=== PATIENT | female | born 1955 | race Caucasian/White ===

== ENCOUNTER 2017-12-11 09:39 | Outpatient (REF) | payer MEDICARE, MEDICAID, SELFPAY ==
[2017-12-11 13:00] LABS: HCT 35.4 % (36.0-46.0); HGB 12.5 g/dL (12.0-15.5); Mean Corp. HGB Concentration 35.3 g/dL (32.0-36.0); Mean Platelet Volume 9.4 fL (8.0-11.0); Platelet Count 131 x1000/uL (130-400); RBC 3.47 m/cumm (4.00-5.20); RBC Distribution Width 12.8 % (11.7-14.6); White Blood Cell Count 6.22 k/cumm (4.4-10.8)
[2017-12-11 13:19] LABS: ALT 95 U/L (12-78); AST 115 U/L (15-37); Albumin 3.9 g/dL (3.4-5.0); Alkaline Phosphatase 119 U/L (46-116); Anion Gap 11.7 mmol/L (3-11); BUN 5 mg/dL (7-18); Bilirubin, Total 0.4 mg/dL (0.2-1.0); CO2 25.3 mmol/L (21.0-32.0); CREATININE 0.67 mg/dL (0.55-1.02); Calcium 9.1 mg/dL (8.5-10.1); Chloride 99 mmol/L (98-107); Glucose 123 mg/dL (70-100); Sodium 136 mmol/L (136-145); TSH (W/Ref FT4) 1.96 uIU/mL (0.358-3.74); Total Protein 7.8 g/dL (6.4-8.2)
[2017-12-12 09:30] LABS: IgA 489 mg/dL (85-499); IgG 1228 mg/dL (610-1616); IgM 72 mg/dL (35-242)
== END 2017-12-11 09:59 ==
LOC: NCHCN 09:39
PROVIDERS: PCP Internal Medicine; Visit Provider Internal Medicine
DX: R63.0 Anorexia (principal); R53.83 Other fatigue; K70.0 Alcoholic fatty liver; R00.0 Tachycardia, unspecified; F34.1 Dysthymic disorder; M18.0 Bilateral primary osteoarthritis of first carpometacarpal joints
CPT/HCPCS: 80053; 82784; 85027; 84443

== ENCOUNTER 2018-09-16 20:24 | Inpatient (IN) | payer MEDICARE, MEDICAID, SELFPAY ==
[2018-09-16] VITALS (24 sets, daily range): BP systolic 106–134; BP diastolic 77–92; PULSE 88–107; RESP 20; TEMP 36.8; O2SAT 95–99
--- NOTE | 2018-09-16 20:37 | W.ED.GENAD ---
Discharge Plan Disposition Patient Disposition: [facility] INPATIENT Condition: Fair Discharge Details Chief Complaint: Orthopedic Clinical Impression: Closed fracture of left hip, Incidental pulmonary nodule Admit Date/Time: 09/16/18 22:23 Admit Provider: Pietro Perkins Attending Provider: Pietro Perkins Primary Care Provider: Abhijeet Castillo ED Provider: Effie Armenta Medical Decision Making Patient is a 63-year-old female presents today with chief complaint of left hip pain. She is brought in via EMS. She reports that prior to arrival she slipped on wet stairs that lead out from her house and fell landing on her left hip. Denies other injury the time of the incident. Did not strike her head, no loss of consciousness. Denies any visual change. No neck or back pain. Denies any chest, abdomen pain. On exam, patient is very point tender over the left hip. She was given 50 mcg of fentanyl prior to arrival which did work well for the patient although short-lived. We will augment this with another 50 mcg of fentanyl, undressed the patient and sent for x-rays. Patient is not anticoagulated. History significant for anxiety, COPD, depression, GERD, hypothyroidism, TIA. XR reviewed by myself, concerning for impacted fracture of hte left femoral neck. Neck appears shortened compared to xray from 2010. CXR ordered, labs and EKG ordered as well. Consulted with Dr. Henderson who advised that someone will address fx tomorrow. Spoke with Dr. Perkins who agrees to admission for left hip fracture. X-rays reviewed by radiologist: IMPRESSION: Indeterminate age left femoral neck fracture. Could be an acute impacted subcapital fracture. Correlate with history and perform additional imaging if indicated. FINDINGS: Lungs: Right lower lobe circumscribed pulmonary nodule measures 16 mm as compared to 12 mm on the prior study. Pleural space: Unremarkable. No evidence of pneumothorax. Heart/Mediastinum: Unremarkable. Heart size within normal limits for technique. Bones/joints: Unremarkable. IMPRESSION: Slowly enlarging right lower lobe pulmonary nodule. No acute findings. Discussed these findings with the patient. She is an active smoker, smokes approximately 1PPD. Advised close f/u with PCP. EKG reviewed by Dr. Bonilla. NSR rate 98, no acute ischemic changes noted. HPI General Mode of arrival: EMS. Date/Time Provider Initiated Documentation: 09/16/18 20:37. Limitations to Documentation: no limitations. Information obtained by: patient, family (accompanied by son), EMS and RN notes reviewed. History of Present Illness 63 year old F presents to the emergency department with the chief complaint of left hip pain after fall, described as moderate, Quality is described as aching, and is localized to the left and lower extremity. Patient reports no radiation. Patient started experiencing this minute(s) and it has been constant. Immobilization improves symptom(s), Movement worsens symptoms . Patient notes no other symptoms.; denies confusion, chest pain, fever/chills, headaches, nausea/vomiting, rash, shortness of breath and weakness. Patient did receive the following treatments prior to arrival, other (given fentanyl by EMS) Related Data Home Medications Medication Instructions Recorded Confirmed albuterol sulfate 2 puff PRN PRN 10/08/14 09/16/18 aspirin [Aspir-Low] 1 tab DAILY 10/08/14 09/16/18 naproxen 1 tab PO BID 10/08/14 09/16/18 salmeterol [Serevent Diskus] 1 puff BID 10/08/14 09/16/18 tiotropium bromide [Spiriva] 1 puff DAILY 10/08/14 09/16/18 levothyroxine 25 mcg PO DAILY 07/21/15 09/16/18 dexlansoprazole [Dexilant] 30 mg PO DAILY 10/21/16 09/16/18 Allergies Allergy/AdvReac Type Severity Reaction Status Date / Time Penicillins Allergy Unverified 09/16/18 20:35 General Stated Complaint: Orthopedic TARA: 3 Review of Systems Constitutional Reports as per HPI, Denies chills, Denies fatigue, Denies fever(s), Denies headache(s) and Denies weakness Eyes Reports as per HPI, Denies blurry vision, Denies change in vision and Denies loss of vision ENT Denies abnormal hearing and Denies headache(s) Cardiovascular Reports as per HPI, Denies chest pain and Denies dyspnea Respiratory Reports as per HPI, Denies cough, Denies pain on inspiration, Denies pain with cough and Denies dyspnea Gastrointestinal Reports as per HPI, Denies abdominal pain, Denies nausea and Denies vomiting Genitourinary Reports as per HPI and Denies urinary incontinence Musculoskeletal Reports as per HPI Integumentary/Breasts Reports as per HPI and Denies rash Neurologic Reports as per HPI, Denies abnormal hearing, Denies abnormal movements, Denies abnormal speech, Denies headache(s), Denies lack of coordination, Denies focal weakness, Denies loss of vision, Denies seizure-like activity, Denies paresthesias and Denies weakness Endocrine Denies fatigue [facility] Surgical History Colonoscopy - MAC (10/23/16) Family History Mother No problems noted. Other Colon cancer Social History Smoking/Tobacco Use Status: Current every day Alcohol Intake: current Alcohol Intake frequency: 0-2 drinks per day Alcohol type: beer Drug use: Never Substance use type: does not use Do you feel safe at home: Yes Do you feel safe in your relationship?: Yes Exam Const General: cooperative, healthy appearing, comfortable, no acute distress, well developed and well groomed Nutritional Appearance: average body habitus and well nourished Orientation: alert, awake and oriented x3 HENMT Head: normal to inspection, no palpable skull fracture, normocephalic and atraumatic Ears: hearing grossly normal bilaterally, external ears normal and TM's normal bilaterally General nose exam: external nose normal Mouth: oral mucosae normal, lip normal and tongue normal Throat: posterior oropharynx normal Eyes General: appearance normal, both eyes and all related structures Visual Smalls: normal visual smalls by confrontation Alignment and Position: alignment normal Periorbital: periorbital findings normal Eyelids: eyelids normal Conjunctivae: conjunctivae normal Pupils: PERRL EOM: EOM intact bilaterally Neck Neck: normal visual inspection, full ROM, no lymphadenopathy, no meningeal signs, trachea midline and supple Chest Chest: normal inspection of the chest, normal palpation of entire chest wall, no crepitus and no localized rib tenderness Resp Effort & Inspection: normal respiratory effort, able to speak in complete sentences and no respiratory distress Auscultation: clear to auscultation bilaterally, no rales, no rhonchi and no wheezes Cardio Rate: regular rate Rhythm: regular rhythm Heart Sounds: S1 normal and S2 normal GI Inspection: normal to inspection, no abdominal wall ecchymosis, no edema and non-distended Palpation: soft, no hepatosplenomegaly, not firm, no guarding, no pulsatile masses, not rigid and nontender Auscultation: normal bowel sounds Back/Spine/Pelvis Back: no CVA tenderness Cervical Spine: normal cervical lordosis and cervical ROM normal Thoracic/Lumbar Spine: thoracic and lumbar spine normal to inspection, thoraco-lumbar ROM normal, No thoraco-lumbar ROM limited, No thoraco-lumbar spasm and No thoracic spinal tenderness Pelvis: no pain with anterior-posterior compression and no pain with lateral compression Skin General skin exam: no rashes or lesions noted Lesions: no lesions Rashes: no rashes Trauma: no lacerations or abrasions Wounds: no wounds Neuro General: alert, awake, oriented x3, gait normal, tone normal and moves all extremities Cranial Nerves: CN's II-XI intact bilaterally Cognition: normal cognition Speech: speech normal Gait: gait abnormal (patient unable to bear weight since fall) Motor: muscle tone normal throughout Sensory Exam: no sensory deficits noted (no saddle paresthesias) Extrem General: no pedal edema and no calf tenderness Left lower extremity: normal capillary refill, no joint enlargement, hip/thigh Details: tenderness Location: of the hip Location: laterally and abnormal ROM Details: held in an abnormal fashion Details: in flexion; no swelling, ROM abnormal, no ecchymosis, no crepitus and no deformity, knee Details: normal to inspection, lower leg Details: normal to inspection, ankle Details: normal to inspection and foot Details: vascular exam Details: dorsalis pedis pulse present and posterior tibial pulse present; abnormal ROM (unable to range hip) Psych Appearance: grossly normal and well kempt Mental Status: mental status grossly normal Speech and Movement: speech and movement normal Course Vital Signs Temperature 36.8 C 09/16/18 20:31 Pulse 90 09/16/18 20:31 Respiratory Rate 09/16/18 20:31 Blood Pressure 112/83 09/16/18 20:31 Pulse Oximetry 99 09/16/18 20:31 Temperature 36.8 C 09/16/18 20:31 Temperature Source Skin 09/16/18 20:31 Pulse 90 09/16/18 20:31 Respiratory Rate 20 09/16/18 20:31 Blood Pressure 112/83 09/16/18 20:31 Blood Pressure Position Sitting 09/16/18 20:31 Pulse Oximetry 99 09/16/18 20:31 Oxygen Delivery Method Room Air 09/16/18 20:31 Oxygen Flow Rate 0 09/16/18 20:31
[2018-09-16] MEDS: fentaNYL 100 MCG/2 ML VIAL 50 MCG IVP (21:30)
--- NOTE | 2018-09-16 21:52 | DI.RAD_ITS ---
SYMPTOM/DIAGNOSIS: FALL. LEFT HIP AND PELVIS: There is a deformity of the subcapital region of the femur which is age indeterminate. Correlation with the patient's history and if appropriate further evaluation with CT could be obtained to further assess the acuity of this abnormality.
--- NOTE | 2018-09-16 22:00 | DI.RAD_ITS ---
SYMPTOM/DIAGNOSIS: HIP FX PA AND LATERAL CHEST: When compared with previous images there is a slight interval increase in the size of a right lower lobe pulmonary nodule which today measures approximately 16 mm as compared with 12 mm on a prior study of 10/08/2014. There is no infiltrate. No pleural effusion or pneumothorax. The heart is within normal limits in size. No acute bony abnormality is seen. SUMMARY: A slowly enlarging right lower lobe, pulmonary nodule is demonstrated. No acute findings are identified.
--- NOTE | 2018-09-16 22:36 | DI.VRAD_ITS ---
EXAM: XR Left Hip with Pelvis when Performed EXAM DATE/TIME: 09/16/2018 9:03 PM CLINICAL HISTORY: 63 years old, female; Injury or trauma; Fall; Initial encounter; Blunt trauma (contusions or hematomas); Left; Hip; Injury date: 09/16/2018 TECHNIQUE: Imaging protocol: XR Left hip with pelvis when performed. Views: 2 or 3 views. COMPARISON: No relevant prior studies available. FINDINGS: Bones/joints: Fracture deformity of the subcapital portion of the left femoral neck is of uncertain acuity. This area is not well visualized on the images provided. Soft tissues: Unremarkable. IMPRESSION: Indeterminate age left femoral neck fracture. Could be an acute impacted subcapital fracture. Correlate with history and perform additional imaging if indicated. Dictated and Authenticated by: Abhijeet Marlow MD. Ordering:PAULINA Chou MD
--- NOTE | 2018-09-16 22:38 | DI.VRAD_ITS ---
EXAM: XR Chest, 1 View EXAM DATE/TIME: 09/16/2018 9:57 PM CLINICAL HISTORY: 63 years old, female; Injury or trauma; Fall; Initial encounter; Blunt trauma (contusions or hematomas); Injury date: 09/16/2018; Injury details: Lt hip FX TECHNIQUE: Imaging protocol: XR of the chest, 1 view. COMPARISON: CR ABD FLAT UPRIGHT PA CHEST 10/08/2014 4:28 PM FINDINGS: Lungs: Right lower lobe circumscribed pulmonary nodule measures 16 mm as compared to 12 mm on the prior study. Pleural space: Unremarkable. No evidence of pneumothorax. Heart/Mediastinum: Unremarkable. Heart size within normal limits for technique. Bones/joints: Unremarkable. IMPRESSION: Slowly enlarging right lower lobe pulmonary nodule. No acute findings. Dictated and Authenticated by: Abhijeet Marlow MD. Ordering:PAULINA Chou MD
[2018-09-16 23:14] LABS: Abs Immature Grans 0.04 k/cumm (0.0-0.09); Absolute Basophil Count 0.03 k/cumm (0.0-0.2); Absolute Eosinophil Count 0.02 k/cumm (0.0-0.7); Absolute Lymphocyte Count 1.82 k/cumm (1.2-3.4); Absolute Monocyte Count 0.37 k/cumm (0.11-0.7); Absolute Neutrophil Count 4.45 k/cumm (1.2-6.7); Basophils % 0.4; Eosinophils % 0.3; HCT 34.5 % (36.0-46.0); Immature Grans % 0.6; Mean Corp. HGB Concentration 34.8 g/dL (32.0-36.0); Mean Corpuscular Hemoglobin 35.2 pg (27.0-33.0); Mean Corpuscular Volume 101.2 fL (80-95); Mean Platelet Volume 8.2 fL (8.0-11.0); Monocytes % 5.5; Neutrophils % 66.2; Platelet Count 114 x1000/uL (130-400); RBC 3.41 m/cumm (4.00-5.20); White Blood Cell Count 6.73 k/cumm (4.4-10.8)
[2018-09-16] MEDS: HYDROmorphone 2 MG/ML VIAL 1 MG IVP (23:25)
[2018-09-16 23:33] LABS: ALT 64 U/L (12-78); AST 74 U/L (15-37); Albumin 3.3 g/dL (3.4-5.0); Alkaline Phosphatase 100 U/L (46-116); Anion Gap 11.3 mmol/L (3-11); BUN 8 mg/dL (7-18); Bilirubin, Total 0.3 mg/dL (0.2-1.0); CO2 21.7 mmol/L (21.0-32.0); CREATININE 0.64 mg/dL (0.55-1.02); Chloride 105 mmol/L (98-107); Glucose 123 mg/dL (70-100); Potassium 3.9 mmol/L (3.5-5.1); Sodium 138 mmol/L (136-145); Total Protein 6.8 g/dL (6.4-8.2)
--- NOTE | 2018-09-16 23:52 | W.PM.HP.N ---
Date of service: 09/16/18 Time of Service: 23:53 Assessment and Plan (1) Fracture of femoral neck, left, closed: Current visit: Yes Status: Acute keep NPO, give parenteral narcotic analgesics, keep immobile, orthopedics to perform ORIF tomorrow. Qualifiers: Encounter type: initial encounter Qualified Code(s): S72.002A - Fracture of unspecified part of neck of left femur, initial encounter for closed fracture (2) COPD (chronic obstructive pulmonary disease): Current visit: No Status: Chronic not in any acute exacerbation. she is stable on her home meds of Spiriva and Serevent. can use prn albuterol as needed for acute bronchospasms but clinically ok to go to surgery. I have ordered IS for her. (3) Hypothyroidism (acquired): Current visit: No Status: Chronic patient reports that she has not taken her synthroid in several months and her last TSH was ok. I will repeat this in the a.m. but hold on her levothyroxine for now (4) Right lower lobe pulmonary nodule: Current visit: No Status: Chronic can be followed up as an outpatient w/ CT/PET. Patient seemed to unaware of this lung nodule even though it has been worked up as far back as September 2014. Back then it was read as a 11 mm granuloma, whereas the current CXR suggests that it has increased in size to 16 mm. I explained this to the patient and she understands the need for follow up w/ Dr. Castillo. History of Present Illness Chief Complaint: left hip pain Narrative: 63-year-old female with a past medical history of osteoarthritis, COPD, hypothyroidism, GERD presents emergency department after mechanical fall landing on her left side with immediate left-sided hip pain and inability to ambulate. Evaluation the ER review revealed an impacted left femoral neck fracture. Patient is now admitted for surgical repair of the same. Dr. Soares, orthopedic surgeon medication care manager, was notified by the ER personnel. Patient denies any syncope, palpitations, chest pain or pressure. She had a mechanical fall on a wet doorstep landing on her left side. She has had no antecedent episodes of chest pain/pressure, unusual dyspnea. Her EKG demonstrated NSR at [address]-T changes. She has low voltage across all her leads consistent w/ COPD. Her CXR demonstrates a chronic RLL lung nodule that is 16 mm and slowly has grown over the years. Otherwise no infiltrates. I think that the lung nodule can be followed as an outpatient and clinically she is acceptable for ORIF of her hip fracture. Review of Systems Constitutional Reports system reviewed and no additional complaints, except as docu Eyes Reports system reviewed and no additional complaints, except as docu ENT Reports system reviewed and no additional complaints, except as docu Cardiovascular Reports system reviewed and no additional complaints, except as docu Respiratory Reports system reviewed and no additional complaints, except as docu Gastrointestinal Reports system reviewed and no additional complaints, except as docu Genitourinary Reports system reviewed and no additional complaints, except as docu Musculoskeletal Reports as per HPI Integumentary/Breasts Reports system reviewed and no additional complaints, except as docu Neurologic Reports system reviewed and no additional complaints, except as docu Psychiatric Reports system reviewed and no additional complaints, except as docu Endocrine Reports system reviewed and no additional complaints, except as docu Hematologic/Lymphatic Reports system reviewed and no additional complaints, except as docu Allergic/Immunologic Reports system reviewed and no additional complaints, except as docu PFSH Medical History Right lower lobe pulmonary nodule (Chronic) Hypothyroidism (acquired) (Chronic) Tobacco abuse (Chronic) Osteoarthritis (Chronic) COPD (chronic obstructive pulmonary disease) (Chronic) Closed left ankle fracture (Resolved) De Quervain's disease (radial styloid tenosynovitis) (Resolved) Right wrist fracture (Resolved) TIA (transient ischemic attack) (Resolved) Surgical History H/O left wrist surgery (Resolved) Colonoscopy - MAC (10/23/16) Family History Mother No problems noted. Other Colon cancer Social History Smoking/Tobacco Use Status: Current every day Tobacco Type: cigarettes Smoking packs per day: 1 Years smoked: 40 Alcohol Intake: current Alcohol Intake frequency: 0-2 drinks per day Alcohol type: beer Drug use: Never Substance use type: does not use Do you feel safe at home: Yes Do you feel safe in your relationship?: Yes Meds Home Medications Medication Instructions Recorded Confirmed Type albuterol sulfate 2 puff PRN PRN 10/08/14 09/16/18 History aspirin [Aspir-Low] 1 tab DAILY 10/08/14 09/16/18 History naproxen 1 tab PO BID 10/08/14 09/16/18 History salmeterol [Serevent Diskus] 1 puff BID 10/08/14 09/16/18 History tiotropium bromide [Spiriva] 1 puff DAILY 10/08/14 09/16/18 History levothyroxine 25 mcg PO DAILY 07/21/15 09/16/18 History dexlansoprazole [Dexilant] 30 mg PO DAILY 10/21/16 09/16/18 History Allergies Allergy/AdvReac Type Severity Reaction Status Date / Time Penicillins Allergy Unverified 09/16/18 20:35 Exam Const General: cooperative, no acute distress and well groomed Nutritional Appearance: average body habitus and well nourished Orientation: alert, awake and oriented x3 HENMT Head: normal to inspection, no palpable skull fracture, normocephalic and atraumatic Ears: external ears normal and TM's normal bilaterally General nose exam: external nose normal, nares normal and no nasal discharge Face and sinus: normal facial exam, sinuses nontender and face symmetric Mouth: oral mucosae normal, lip normal, tongue normal, oropharynx normal and moist mucous membranes Teeth and gingiva: gingiva normal Throat: posterior oropharynx normal and uvula midline Eyes General: appearance normal, both eyes and all related structures Visual Smalls: normal visual smalls by confrontation Alignment and Position: alignment normal Periorbital: periorbital findings normal Eyelids: eyelids normal Conjunctivae: conjunctivae normal Sclera: sclerae normal Cornea: corneas normal Pupils: PERRL, normal by confrontation and accommodation normal EOM: EOM intact bilaterally Neck Neck: normal visual inspection, full ROM, no lymphadenopathy, trachea midline and supple Thyroid: thyroid normal Carotids: normal carotid upstroke Lymphatic: no lymphadenopathy noted Chest Chest: normal inspection of the chest and normal palpation of entire chest wall Resp Effort & Inspection: normal respiratory effort and able to speak in complete sentences Auscultation: clear to auscultation bilaterally Percussion: percussion normal Cardio Jugular venous pressure: no JVD Palpation: normal PMI Rate: regular rate Rhythm: regular rhythm Heart Sounds: S1 normal, S2 normal and normal, physiologic split S2 Pulses: normal peripheral pulses GI Inspection: normal to inspection Palpation: soft, no hepatosplenomegaly and nontender Percussion: normal to percussion Auscultation: normal bowel sounds Back/Spine/Pelvis Cervical Spine: normal cervical lordosis and cervical ROM normal Thoracic/Lumbar Spine: thoracic and lumbar spine normal to inspection and thoraco-lumbar ROM normal Skin General skin exam: no rashes or lesions noted, elasticity normal and turgor normal Lesions: no lesions Rashes: no rashes Trauma: no lacerations or abrasions Hair: normal Nails: normal Neuro General: alert, awake, oriented x3, moves all extremities and no focal motor deficits Cranial Nerves: PERRL, EOM intact bilaterally, no nystagmus, facial strength normal, tongue midline, hearing normal, able to rotate head bilaterally, able to elevate shoulders bilaterally and Symmetric palate elevation Cognition: normal cognition Speech: speech normal Motor: muscle tone normal throughout, no pronator drift, no movement abnormalities noted, no fasciculations and strength abnormal (unable to assess strength in left lower extremity d/t pain from hip frax.) left lower extremity Sensory Exam: no sensory deficits noted Extrem General: normal to inspection, normal capillary refill, no clubbing, cyanosis or edema and no calf tenderness bilaterally Right lower extremity: normal to inspection, full ROM, normal capillary refill and no joint enlargement; no edema Left lower extremity: normal capillary refill and hip/thigh Details: tenderness Location: of the hip Location: laterally and over the great trochanter and swelling; no edema Psych Appearance: grossly normal Mental Status: mental status grossly normal Speech and Movement: speech and movement normal Mood: congruent mood Affect: normal affect Attitude: cooperative Thought Process: normal Thought Content: normal Insight: insight good Judgment: judgment good Results Imaging Chest x-ray: report reviewed and image reviewed Labs : 09/16/18 23:05 09/16/18 23:05 Laboratory Results - last 24 hr 09/16/18 09/16/18 23:05 23:05 WBC 6.73 RBC 3.41 L Hgb 12.0 Hct 34.5 L MCV 101.2 H MCH 35.2 H MCHC 34.8 RDW 13.0 Plt Count 114 L MPV 8.2 Immature Gran % 0.6 Neutrophils % 66.2 Lymphocytes % 27.0 Monocytes % 5.5 Eosinophils % 0.3 Basophils % 0.4 Absolute Neutrophils 4.45 Absolute Lymphocytes 1.82 Absolute Monocytes 0.37 Absolute Eosinophils 0.02 Absolute Basophils 0.03 Sodium 138 Potassium 3.9 Chloride 105 Carbon Dioxide 21.7 Anion Gap 11.3 H BUN 8 Creatinine 0.64 Estimated GFR/1.73 m2 >= 60.00 Glucose 123 H Calcium 8.0 L Total Bilirubin 0.3 AST 74 H ALT 64 Alkaline Phosphatase 100 Total Protein 6.8 Albumin 3.3 L Last Vital Signs Temp 36.8 C 09/16/18 20:31 Pulse 90 09/16/18 20:31 Resp 20 09/16/18 20:31 BP 112/83 09/16/18 20:31 Pulse Ox 99 09/16/18 20:31
[2018-09-16] MEDS: fentaNYL 100 MCG/2 ML VIAL IVP (23:53)
[2018-09-17] VITALS (75 sets, daily range): BP systolic 109–162; BP diastolic 68–107; PULSE 84–138; RESP 10–29; TEMP 36.9–37.3; O2SAT 92–96
[2018-09-17] MEDS: fentaNYL 100 MCG/2 ML VIAL IVP ×4 (01:28→07:56)
[2018-09-17] MEDS: FAMOTIDINE 20 MG/50 ML BAG 200 MG IVPB ×2 (01:29→13:55)
[2018-09-17] MEDS: Levothyroxine 25 MCG TAB PO (06:22)
[2018-09-17 07:26] LABS: TSH (W/Ref FT4) 5.49 uIU/mL (0.358-3.74)
[2018-09-17 07:51] LABS: FREE T4 0.77 ng/dL (0.76-1.46)
[2018-09-17] MEDS: Normal Saline 1,000 ML 125 ML IV ×3 (07:55→20:10)
--- NOTE | 2018-09-17 08:03 | DI.CT_ITS ---
SYMPTOM/DIAGNOSIS: FX LT HIP CT LEFT HIP: The study was carried out according to the usual protocol. An acute impacted subcapital fracture of the left hip is demonstrated. There is no evidence of a dislocation.
[2018-09-17] MEDS: Normal Saline Flush 10 ML SYR (08:09)
--- NOTE | 2018-09-17 08:33 | W.PM.PROGNOT ---
Date of Service Date of service: 09/17/18 Time of Service: 08:33 Assessment and Plan (1) Fracture of femoral neck, left, closed: Current visit: Yes Status: Acute For total arthroplasty today. Provide a bowel regimen. Checking Vitamin D. Qualifiers: Encounter type: initial encounter Qualified Code(s): S72.002A - Fracture of unspecified part of neck of left femur, initial encounter for closed fracture (2) COPD (chronic obstructive pulmonary disease): Current visit: No Status: Chronic agree that this is not in acute exacerbation. Will rx nebs for immediate post-op period. Encourage IS. (3) Hypothyroidism (acquired): Current visit: No Status: Chronic TSH slightly high - resume synthroid 25 mcg daily (4) Right lower lobe pulmonary nodule: Current visit: No Status: Chronic F/u with PCP/pulmonary (5) Discharge planning issues: Current visit: Yes Status: Acute Full code Dependent on post-op course, possible discharge home as early as tomorrow (6) DVT prophylaxis: Current visit: Yes Status: Acute Defer to orthopedic surgery - anticipate asa Subjective Interval history since last seen: About to go to surgery (hip replacement). S/p nerve block. Does drink 3 drinks/day. No signs of withdrawal at this time. Pain is controlled. Feels anxious. Nursing notes that the patient has been tachycardic today - however, this is her normal and has been evaluated by PCP in the past. She denies dizziness, chest pain, shortness of breath, nausea, vomiting. Exam Narrative Exam Narrative: General: Very pleasant middle-aged female, anxious, A&Ox3, comfortable in bed HEENT: EOMI, MMM Heart: RRR, tachycardic, no m/r/g Lungs: CTAB GI: abdomen is soft, nontender, nondistended Extremities: LLL is shortnened; no e/c/c; 2+ pedal pulses B Objective Objective Clinical Data: Abnormal lab results 09/16/18 09/16/18 09/17/18 Range/Units 23:05 23:05 06:35 RBC 3.41 L (4.00-5.20) m/cumm Hct 34.5 L (36.0-46.0) % MCV 101.2 H (80-95) fL MCH 35.2 H (27.0-33.0) pg Plt Count 114 L (130-400) x1000/uL Anion Gap 11.3 H (3-11) mmol/L Glucose 123 H (70-100) mg/dL Calcium 8.0 L (8.5-10.1) mg/dL AST 74 H (15-37) U/L Albumin 3.3 L (3.4-5.0) g/dL TSH 5.49 H (0.358-3.74) uIU/mL Vital Signs Temperature 37.0 C 09/17/18 06:30 Temperature Source Temporal Artery Scan 09/17/18 06:30 Pulse 101 H 09/17/18 06:46 Respiratory Rate 20 09/17/18 00:01 Respiratory Effort 09/17/18 00:01 Respiratory Depth Normal 09/17/18 00:01 Respiratory Pattern Normal 09/17/18 00:01 Blood Pressure 131/87 09/17/18 06:46 Blood Pressure Mean 99 09/17/18 06:46 Blood Pressure Position Sitting 09/16/18 20:31 Pulse Oximetry 96 09/17/18 00:01 Oxygen Delivery Method Room Air 09/17/18 00:01 Oxygen Flow Rate 0 09/17/18 00:01 Pain Level 10 09/17/18 07:56 Intake & Output 09/16/18 09/16/18 09/17/18 11:59 23:59 11:59 Intake Total 958 / 958 Output Total 450 / 450 Balance 508 / 508 Weight 50.7 kg 55 kg Intake: IV 958 / 958 Output: Urine 450 / 450 Other: Urine Color Yellow Urine Appearance Clear Urine Odor None Comment jaramillo is patent and draining Voiding Methods Indwelling Catheter Laboratory Results WBC 6.73 k/cumm (4.4-10.8) 09/16/18 23:05 RBC 3.41 m/cumm (4.00-5.20) L 09/16/18 23:05 Hgb 12.0 g/dL (12.0-15.5) 09/16/18 23:05 Hct 34.5 % (36.0-46.0) L 09/16/18 23:05 MCV 101.2 fL (80-95) H 09/16/18 23:05 MCH 35.2 pg (27.0-33.0) H 09/16/18 23:05 MCHC 34.8 g/dL (32.0-36.0) 09/16/18 23:05 RDW 13.0 % (11.7-14.6) 09/16/18 23:05 Plt Count 114 x1000/uL (130-400) L 09/16/18 23:05 MPV 8.2 fL (8.0-11.0) 09/16/18 23:05 Immature Gran % 0.6 09/16/18 23:05 Neutrophils % 66.2 09/16/18 23:05 Lymphocytes % 27.0 09/16/18 23:05 Monocytes % 5.5 09/16/18 23:05 Eosinophils % 0.3 09/16/18 23:05 Basophils % 0.4 09/16/18 23:05 Absolute Neutrophils 4.45 k/cumm (1.2-6.7) 09/16/18 23:05 Absolute Lymphocytes 1.82 k/cumm (1.2-3.4) 09/16/18 23:05 Absolute Monocytes 0.37 k/cumm (0.11-0.7) 09/16/18 23:05 Absolute Eosinophils 0.02 k/cumm (0.0-0.7) 09/16/18 23:05 Absolute Basophils 0.03 k/cumm (0.0-0.2) 09/16/18 23:05 Sodium 138 mmol/L (136-145) 09/16/18 23:05 Potassium 3.9 mmol/L (3.5-5.1) 09/16/18 23:05 Chloride 105 mmol/L (98-107) 09/16/18 23:05 Carbon Dioxide 21.7 mmol/L (21.0-32.0) 09/16/18 23:05 Anion Gap 11.3 mmol/L (3-11) H 09/16/18 23:05 BUN 8 mg/dL (7-18) 09/16/18 23:05 Creatinine 0.64 mg/dL (0.55-1.02) 09/16/18 23:05 Estimated GFR/1.73 m2 >= 60.00 (mL/min/1.73m2) 09/16/18 23:05 Glucose 123 mg/dL (70-100) H 09/16/18 23:05 Calcium 8.0 mg/dL (8.5-10.1) L 09/16/18 23:05 Total Bilirubin 0.3 mg/dL (0.2-1.0) 09/16/18 23:05 AST 74 U/L (15-37) H 09/16/18 23:05 ALT 64 U/L (12-78) 09/16/18 23:05 Alkaline Phosphatase 100 U/L (46-116) 09/16/18 23:05 Total Protein 6.8 g/dL (6.4-8.2) 09/16/18 23:05 Albumin 3.3 g/dL (3.4-5.0) L 09/16/18 23:05 TSH 5.49 uIU/mL (0.358-3.74) H 09/17/18 06:35 Free T4 0.77 ng/dL (0.76-1.46) 09/17/18 06:35 Patient ABO/Rh A Positive 09/16/18 23:05 Antibody Screen Negative 09/16/18 23:05
[2018-09-17] MEDS: Bupivacaine 0.25% Pres-Free 30 ML VIAL ×2 (08:45→16:20)
[2018-09-17] MEDS: Bupivacaine LIPOSOME/PF 133 MG/10 ML VIAL IJ (08:45)
--- NOTE | 2018-09-17 08:48 | OCONE_ITS ---
Date of service: 09/17/18 Time of Service: 08:42 History of Present Illness Chief Complaint: Left impacted femoral neck fracture Narrative: This patient fell going up the steps into her home injuring her left hip. She is brought by ambulance to the emergency department complaining of left hip pain. She had radiographs taken which showed impacted femoral neck f racture on the left side. She did not have an adequate lateral radiograph I was contacted at 10 PM yesterday evening by Effie Evangelista the nurse practitioner and I said I would accept the patient for open reduction internal fixation assuming that the fracture was impacted and not significantly displaced. The hospitalist admitted the patient. Patient has significant past history and that she continues to smoke daily. She has documented COPD. She has a calcified nodule in her right lower lobe that appears to have gotten bigger on measurement on planes chest x-ray compared to the chest x-ray 4 years ago. In addition when asked she reports that she drinks at least 2 beers every night. She states she is never had a problem with alcohol withdrawal Assessment and Plan (1) Fracture of femoral neck, left, closed: Current visit: Yes Status: Acute I think this patient does have an impacted femoral neck fracture although the lateral radiographs are inadequate I do not see any clinical evidence that this is displaced to warrant total hip arthroplasty. I explained to the patient that I would do cannulated screw fixation and I would use the fluoroscope intraoperatively to verify that there is no significant angulation on the latera l radiograph I explained to the patient that if there were a significant angulation then the blood supply to the hip is impaired and the patient has a high likelihood for nonunion or avascular necrosis. Patient had expressed to the ICU staff that she would prefer Dr. Escobedo as her physician. I was informed this morning of this before I saw the patient and the patient does not know Dr. Escoebdo it was just suggested to her by 1 of the nurses that he provide her care. Therefore even though I have discussed the case with the patient I will let the patient meet Dr. Escobedo and discuss it with him as well and she can make her decision as to who does the surgery. In addition I have spoken with Dr. Escobedo this morning and he thinks the patient should have a CT scan to verify that the fracture is impacted and not significantly displaced if it were displaced his opinion would be that the patient should have a total hip replacement. Patient is slightly agitated and I am concerned that she may be have a propensity for EtOH withdrawal I informed the nurses and Dr. Burgos of this. They will keep track of that. In the meantime we will await patient's consultation back to [facility] and possible CT scan results. I have reviewed the x-ray of the chest with the radiologist who notes that this a calcified pulmonary nodule unlikely it to be a carcinoid carcinoma although osteosarcoma can cause calcified nodules in the chest. It is probably more consistent with her chronic COPD. A work-up will be needed probably at some time with a chest CT but for now Qualifiers: Encounter type: initial encounter Qualified Code(s): S72.002A - Fracture of unspecified part of neck of left femur, initial encounter for closed fracture PFSH Medical History Right lower lobe pulmonary nodule (Chronic) Hypothyroidism (acquired) (Chronic) Tobacco abuse (Chronic) Osteoarthritis (Chronic) COPD (chronic obstructive pulmonary disease) (Chronic) Closed left ankle fracture (Resolved) De Quervain's disease (radial styloid tenosynovitis) (Resolved) Right wrist fracture (Resolved) TIA (transient ischemic attack) (Resolved) Surgical History H/O left wrist surgery (Resolved) Colonoscopy - MAC (10/23/16) Family History Mother No problems noted. Other Colon cancer Social History Smoking/Tobacco Use Status: Current every day Tobacco Type: cigarettes Smoking packs per day: 1 Years smoked: 40 Alcohol Intake: current Alcohol Intake frequency: 0-2 drinks per day Alcohol type: beer Drug use: Never Substance use type: does not use Do you feel safe at home: Yes Do you feel safe in your relationship?: Yes Exam Extrem Other: Because the patient's pain has been difficult to control with fentanyl. I elected not to put her hip through a range of motion. I do note that the alignment is anatomic with her no shortening or external rotation. Results Last Vital Signs Temp 98.6 F 09/17/18 06:30 Pulse 101 H 09/17/18 06:46 Resp 20 09/17/18 00:01 BP 131/87 09/17/18 06:46 Pulse Ox 96 09/17/18 00:01 Labs : 09/16/18 23:05 09/16/18 23:05 Laboratory Results - last 24 hr 09/16/18 09/16/18 09/16/18 23:05 23:05 23:05 WBC 6.73 RBC 3.41 L Hgb 12.0 Hct 34.5 L MCV 101.2 H MCH 35.2 H MCHC 34.8 RDW 13.0 Plt Count 114 L MPV 8.2 Immature Gran % 0.6 Neutrophils % 66.2 Lymphocytes % 27.0 Monocytes % 5.5 Eosinophils % 0.3 Basophils % 0.4 Absolute Neutrophils 4.45 Absolute Lymphocytes 1.82 Absolute Monocytes 0.37 Absolute Eosinophils 0.02 Absolute Basophils 0.03 Sodium 138 Potassium 3.9 Chloride 105 Carbon Dioxide 21.7 Anion Gap 11.3 H BUN 8 Creatinine 0.64 Estimated GFR/1.73 m2 >= 60.00 Glucose 123 H Calcium 8.0 L Total Bilirubin 0.3 AST 74 H ALT 64 Alkaline Phosphatase 100 Total Protein 6.8 Albumin 3.3 L TSH Free T4 Patient ABO/Rh A Positive Antibody Screen Negative 09/17/18 06:35 WBC RBC Hgb Hct MCV MCH MCHC RDW Plt Count MPV Immature Gran % Neutrophils % Lymphocytes % Monocytes % Eosinophils % Basophils % Absolute Neutrophils Absolute Lymphocytes Absolute Monocytes Absolute Eosinophils Absolute Basophils Sodium Potassium Chloride Carbon Dioxide Anion Gap BUN Creatinine Estimated GFR/1.73 m2 Glucose Calcium Total Bilirubin AST ALT Alkaline Phosphatase Total Protein Albumin TSH 5.49 H Free T4 0.77 Patient ABO/Rh Antibody Screen
[2018-09-17] MEDS: HYDROmorphone 2 MG/ML VIAL 1 MG IVP ×2 (09:43→12:49)
[2018-09-17 10:13] LABS: Abs Immature Grans 0.02 k/cumm (0.0-0.09); Absolute Basophil Count 0.03 k/cumm (0.0-0.2); Absolute Eosinophil Count 0.05 k/cumm (0.0-0.7); Absolute Lymphocyte Count 1.95 k/cumm (1.2-3.4); Absolute Monocyte Count 0.42 k/cumm (0.11-0.7); Basophils % 0.4; Eosinophils % 0.6; HCT 33.1 % (36.0-46.0); HGB 11.6 g/dL (12.0-15.5); Immature Grans % 0.2; Mean Corpuscular Hemoglobin 35.8 pg (27.0-33.0); Mean Corpuscular Volume 102.2 fL (80-95); Mean Platelet Volume 8.7 fL (8.0-11.0); Neutrophils % 70.8; Platelet Count 110 x1000/uL (130-400); RBC 3.24 m/cumm (4.00-5.20); RBC Distribution Width 13.1 % (11.7-14.6); White Blood Cell Count 8.47 k/cumm (4.4-10.8)
[2018-09-17 10:30] LABS: BUN 6 mg/dL (7-18); CREATININE 0.56 mg/dL (0.55-1.02); Chloride 108 mmol/L (98-107); Glucose 108 mg/dL (70-100); Magnesium 1.4 mg/dL (1.8-2.4); Potassium 3.6 mmol/L (3.5-5.1); Sodium 141 mmol/L (136-145)
[2018-09-17 10:33] LABS: INR 1.1 (0.9-1.1); Prothrombin Time 10.6 sec (9.3-11.0)
[2018-09-17] MEDS: Docusate Sodium 100 MG CAP PO ×2 (11:03→20:11)
[2018-09-17] MEDS: THIAMINE 100 MG in Normal Saline 100 ML 200 MG IVPB (11:04)
[2018-09-17] MEDS: Tiotropium Bromide-Respimat 10 PUFF INH 2 PUFF IH (11:10)
[2018-09-17] MEDS: MAGNESIUM SULFATE 4 GM/100 ML BAG IVPB (11:58)
--- NOTE | 2018-09-17 12:44 | PHARADMIT ---
Addendum entered by Don Rosa III 09/18/18 11:54: Pharmacy Note Subjective Ortho has discharg patient from service, note written Hospitalist awating to see how patient fairs with PT before discharging. Objective VS-OK (BP-141/88) HR-113 K+3.2 H&H-8.3/24.9 CIWA-zero, pain: 4/10 No BM yet Assessment Using Oxycodone for pain, along with Celebrex Plan Probable discharge later today. Original Note: Admission Pharmacy Clinical Review left femoral fracture Code Status Full Code Current Weight 55 kg Renally Cleared and Narrow Therapeutic Index Meds Crcl ~63.3 mL/min current meds okay QTc Value / Action Taken QTc 439 BP Control, Fever BP 132/72 afebrile Electrolytes reviewed Cl 108 mag 1.4 DVT Prophylaxis none- went to OR today Opiate Usage / Scheduled Bowel Regimen Ordered prn/elvin and prn Plt/SCr for Heparin / Enoxaparin plt 110 SCr 0.56 INR for Warfarin n/a H/H stable, WBC/Bands h/h 11.6/33.1 wbc 8.47 Antibiotic appropriateness none right now, no post op orders yet Cultures and Sensitivities none Surgical ABX d/c within 24 hr watch for post op orders DM control / Insulin Dosing BG 108 none Heart Failure (Check EF%) (HILDA's, B-Block, Diuretics) none IV to PO Switch n/a Home Meds Reviewed naproxen may enhance the bleed risk of aspirin and diminish the cardioprotective effects Home Meds Not Ordered aspirin, dexlansoprazole, naproxen Comments going to the OR today pts own salmeterol order entered, has not been brought in or checked by pharmacy yet
--- NOTE | 2018-09-17 13:32 | NUR.NOTE ---
Nursing Note: From Pt received a nerve block from Rojas Caldwell CRNA. Myself, Rubens Bird RN, and Arti Espinal RN were present for the nerve block. I assisted in pushing the medication while Rojas Caldwell used the needle w/ ultrasound. Pt tolerated well. Monitored on telemetry during and after for 15+ minutes. No adverse effects noted. Pt reported she was comfortable.
--- NOTE | 2018-09-17 13:56 | PDOC.CMIN ---
- If Service Date Differs Date of service: 09/17/18 Time of Service: 13:57 Care Management Initial Assess REASON FOR HOSPITALIZATION:: Left Fracture of femoral neck PAST MEDICAL HISTORY/PAST SURGICAL HISTORY:: Right lower lobe pulmonary nodule (Chronic). Hypothyroidism (acquired) (Chronic). Tobacco abuse (Chronic). Osteoarthritis (Chronic). COPD (chronic obstructive pulmonary disease) (Chronic). Closed left ankle fracture (Resolved). De Quervain's disease (radial styloid tenosynovitis) (Resolved). Right wrist fracture (Resolved). TIA (transient ischemic attack) (Resolved). Surgical History. H/O left wrist surgery (Resolved). Colonoscopy - MAC (10/23/16) PREVIOUS FUNCTIONAL STATUS/SOCIAL/FAMILY SUPPORTS:: Corina lives with her SO and her sister. CURRENT FUNCTIONAL STATUS:: Corina is having a left hip injection when CM stopped to meet with her and she will have surgery this afternoon. CM will return to complete assessment when she has recovered from anesthesia. No family is present at this time. ADVANCE DIRECTIVES:: On file [facility] Gigi Wallace - [phone] Has patient been provided with information about the portal?: No Did the patient sign up for the portal?: No CODE STATUS:: Full Code INSURANCE COVERAGE / FINANCIAL ISSUES:: Medicare, medicaid CURRENT HOME/COMMUNITY SERVICES/EQUIPMENT:: [facility], and [facility] PRIMARY CARE PHYSICIAN:: POTENTIAL DISCHARGE NEEDS:: Follow up with primary care, orthopedics and anticipate outpatient services including home health vs SNF. PATIENT/FAMILY EDUCATION NEEDS:: Discharge education, limitations and follow up plan of care including ask me three and self management. ANTICIPATED BARRIERS TO DISCHARGE:: Dispostiion to be determined. TRANSPORTATION:: Disposition pending. PLAN:: Corina is having her procedure today, CM will assess for needs anticipate home health services and follow up with orthopedics and primary care at discharge.
--- NOTE | 2018-09-17 14:07 | INITIAL_ITS ---
- If Service Date Differs Date of service: 09/17/18 Time of Service: 13:57 Care Management Initial Assess REASON FOR HOSPITALIZATION:: Left Fracture of femoral neck PAST MEDICAL HISTORY/PAST SURGICAL HISTORY:: Right lower lobe pulmonary nodule (Chronic). Hypothyroidism (acquired) (Chronic). Tobacco abuse (Chronic). Osteoarthritis (Chronic). COPD (chronic obstructive pulmonary disease) (Chronic). Closed left ankle fracture (Resolved). De Quervain's disease (radial styloid tenosynovitis) (Resolved). Right wrist fracture (Resolved). TIA (transient ischemic attack) (Resolved). Surgical History. H/O left wrist surgery (Resolved). Colonoscopy - MAC (10/23/16) PREVIOUS FUNCTIONAL STATUS/SOCIAL/FAMILY SUPPORTS:: Corina lives with her SO and her sister. CURRENT FUNCTIONAL STATUS:: Corina is having a left hip injection when CM stopped to meet with her and she will have surgery this afternoon. CM will return to complete assessment when she has recovered from anesthesia. No family is present at this time. ADVANCE DIRECTIVES:: On file [facility] Gigi Wallace - [phone] Has patient been provided with information about the portal?: No Did the patient sign up for the portal?: No CODE STATUS:: Full Code INSURANCE COVERAGE / FINANCIAL ISSUES:: Medicare, medicaid CURRENT HOME/COMMUNITY SERVICES/EQUIPMENT:: [facility], and [facility] PRIMARY CARE PHYSICIAN:: POTENTIAL DISCHARGE NEEDS:: Follow up with primary care, orthopedics and anticipate outpatient services including home health vs SNF. PATIENT/FAMILY EDUCATION NEEDS:: Discharge education, limitations and follow up plan of care including ask me three and self management. ANTICIPATED BARRIERS TO DISCHARGE:: Dispostiion to be determined. TRANSPORTATION:: Disposition pending. PLAN:: Corina is having her procedure today, CM will assess for needs anticipate home health services and follow up with orthopedics and primary care at discharge.
--- NOTE | 2018-09-17 14:17 | W.ORTHOCONSU ---
Date of service: 09/17/18 Time of Service: 14:17 History of Present Illness Chief Complaint: Left Hip Pain Narrative: Corina is a 63-year-old who had a fall today on her left side. She slipped on the wet steps and immediately had pain and deformity. She was unable to ambulate. EMS services brought her to the emergency department and diagnosed her with a left subcapital femoral neck fracture. She reported pain in the left hip only. She denied any numbness or tingling. No premorbid hip pain. She ambulated independently prior to this fall. She lives independently in the community. She has history of COPD. She currently smokes and drinks daily. She has had no recent pulmonary exacerbations. She was admitted to the hospital service for medical management and preoperative clearance. She does have known sinus tachycardia which has been chosen not to be treated due to lung disease and patient's preference. She denies any chest pain or shortness of breath. No fevers no chills. I was consulted per patient request for evaluation of the left hip fracture. Consults Consult date: 09/17/18 Requesting physician: Emily Galindo Consult Reason Left hip fracture Assessment and Plan (1) Fracture of femoral neck, left, closed: Current visit: Yes Status: Acute Corina is a 63-year-old who suffered a femoral neck fracture on the left side. The lateral team in the emergency department does not accurately show the lateral profile the femoral neck. Therefore, I ordered a CT scan. The CT scan demonstrates significant displacement, shortening, and fracture comminution. Therefore, a hip replacement is the best option, especially for 63-year-old. I discussed this with Corina and her son in detail. I would perform a anterior approach total hip arthroplasty. I reviewed the risk of the procedure to include bleeding, infection, pain, stiffness, damage to nerves and vessels, damage to muscle tendons, leg length discrepancy, numbness, need for repeat procedures, dislocation, blood clot. Despite these risk, she elected to proceed. Qualifiers: Encounter type: initial encounter Qualified Code(s): S72.002A - Fracture of unspecified part of neck of left femur, initial encounter for closed fracture Review of Systems Review of Systems All systems reviewed & are unremarkable except as noted in HPI and below PFSH Medical History Right lower lobe pulmonary nodule (Chronic) Hypothyroidism (acquired) (Chronic) Tobacco abuse (Chronic) Osteoarthritis (Chronic) COPD (chronic obstructive pulmonary disease) (Chronic) Closed left ankle fracture (Resolved) De Quervain's disease (radial styloid tenosynovitis) (Resolved) Right wrist fracture (Resolved) TIA (transient ischemic attack) (Resolved) Surgical History H/O left wrist surgery (Resolved) Colonoscopy - MAC (10/23/16) Family History Mother No problems noted. Other Colon cancer Social History Smoking/Tobacco Use Status: Current every day Tobacco Type: cigarettes Smoking packs per day: 1 Years smoked: 40 Alcohol Intake: current Alcohol Intake frequency: 0-2 drinks per day Alcohol type: beer Drug use: Never Substance use type: does not use Do you feel safe at home: Yes Do you feel safe in your relationship?: Yes Exam Narrative Exam Narrative: Laying supine in the hospital bed. The left leg is obviously shorter than the right and slightly externally rotated. No notable ecchymosis. No significant swelling of the left hip. No pain to palpation of the knee. No pain to palpation of the ankle. Range of motion hip was not tested. Pain with palpation of the hip girdle. Intact sensation to the superficial peroneal, deep peroneal, and tibial nerves. The foot is warm and well-perfused with a palpable DP pulse. Results Last Vital Signs Temp 37.3 C 09/17/18 12:32 Pulse 107 H 09/17/18 12:32 Resp 17 09/17/18 10:40 BP 132/74 09/17/18 12:32 Pulse Ox 94 L 09/17/18 12:32 Labs : 09/17/18 10:02 09/17/18 10:02 Laboratory Results - last 24 hr 09/16/18 09/16/18 09/16/18 23:05 23:05 23:05 WBC 6.73 RBC 3.41 L Hgb 12.0 Hct 34.5 L MCV 101.2 H MCH 35.2 H MCHC 34.8 RDW 13.0 Plt Count 114 L MPV 8.2 Immature Gran % 0.6 Neutrophils % 66.2 Band Neutrophils % Lymphocytes % 27.0 Atypical Lymphs % Monocytes % 5.5 Eosinophils % 0.3 Basophils % 0.4 Metamyelocytes % Myelocytes % Promyelocytes % Absolute Neutrophils 4.45 Absolute Lymphocytes 1.82 Absolute Monocytes 0.37 Absolute Eosinophils 0.02 Absolute Basophils 0.03 Nucleated RBCs Differential Comment Other Cell Type RBC Morphology Polychromasia Hypochromasia Poikilocytosis Basophilic Stippling Anisocytosis Microcytosis Macrocytosis Spherocytes Target Cells Tear Drop Cells Ovalocytes Stomatocytes [place] Bodies [place] Cells Acanthocytes (Spur) Schistocytes PT INR Sodium 138 Potassium 3.9 Chloride 105 Carbon Dioxide 21.7 Anion Gap 11.3 H BUN 8 Creatinine 0.64 Estimated GFR/1.73 m2 >= 60.00 Glucose 123 H Calcium 8.0 L Magnesium Total Bilirubin 0.3 AST 74 H ALT 64 Alkaline Phosphatase 100 Total Protein 6.8 Albumin 3.3 L TSH Free T4 Patient ABO/Rh A Positive Antibody Screen Negative 09/17/18 09/17/18 09/17/18 06:35 08:36 09:02 WBC RBC Hgb Hct MCV MCH MCHC RDW Plt Count MPV Immature Gran % Neutrophils % Band Neutrophils % Lymphocytes % Atypical Lymphs % Monocytes % Eosinophils % Basophils % Metamyelocytes % Myelocytes % Promyelocytes % Absolute Neutrophils Absolute Lymphocytes Absolute Monocytes Absolute Eosinophils Absolute Basophils Nucleated RBCs Differential Comment Other Cell Type RBC Morphology Polychromasia Hypochromasia Poikilocytosis Basophilic Stippling Anisocytosis Microcytosis Macrocytosis Spherocytes Target Cells Tear Drop Cells Ovalocytes Stomatocytes [place] Bodies [place] Cells Acanthocytes (Spur) Schistocytes PT Cancelled INR Cancelled Sodium Cancelled Potassium Cancelled Chloride Cancelled Carbon Dioxide Cancelled Anion Gap Cancelled BUN Cancelled Creatinine Cancelled Estimated GFR/1.73 m2 Cancelled Glucose Cancelled Calcium Cancelled Magnesium Cancelled Total Bilirubin AST ALT Alkaline Phosphatase Total Protein Albumin TSH 5.49 H Free T4 0.77 Patient ABO/Rh Antibody Screen 09/17/18 09/17/18 09/17/18 09:02 10:02 10:02 WBC Cancelled 8.47 RBC Cancelled 3.24 L Hgb Cancelled 11.6 L Hct Cancelled 33.1 L MCV Cancelled 102.2 H MCH Cancelled 35.8 H MCHC Cancelled 35.0 RDW Cancelled 13.1 Plt Count Cancelled 110 L MPV Cancelled 8.7 Immature Gran % Cancelled 0.2 Neutrophils % Cancelled 70.8 Band Neutrophils % Cancelled Lymphocytes % Cancelled 23.0 Atypical Lymphs % Cancelled Monocytes % Cancelled 5.0 Eosinophils % Cancelled 0.6 Basophils % Cancelled 0.4 Metamyelocytes % Cancelled Myelocytes % Cancelled Promyelocytes % Cancelled Absolute Neutrophils Cancelled 6.00 Absolute Lymphocytes Cancelled 1.95 Absolute Monocytes Cancelled 0.42 Absolute Eosinophils Cancelled 0.05 Absolute Basophils Cancelled 0.03 Nucleated RBCs Cancelled Differential Comment Cancelled Other Cell Type Cancelled RBC Morphology Cancelled Polychromasia Cancelled Hypochromasia Cancelled Poikilocytosis Cancelled Basophilic Stippling Cancelled Anisocytosis Cancelled Microcytosis Cancelled Macrocytosis Cancelled Spherocytes Cancelled Target Cells Cancelled Tear Drop Cells Cancelled Ovalocytes Cancelled Stomatocytes Cancelled [place] Bodies Cancelled [place]arlyn Cells Cancelled Acanthocytes (Spur) Cancelled Schistocytes Cancelled PT 10.6 INR 1.1 Sodium Potassium Chloride Carbon Dioxide Anion Gap BUN Creatinine Estimated GFR/1.73 m2 Glucose Calcium Magnesium Total Bilirubin AST ALT Alkaline Phosphatase Total Protein Albumin TSH Free T4 Patient ABO/Rh Antibody Screen 09/17/18 10:02 WBC RBC Hgb Hct MCV MCH MCHC RDW Plt Count MPV Immature Gran % Neutrophils % Band Neutrophils % Lymphocytes % Atypical Lymphs % Monocytes % Eosinophils % Basophils % Metamyelocytes % Myelocytes % Promyelocytes % Absolute Neutrophils Absolute Lymphocytes Absolute Monocytes Absolute Eosinophils Absolute Basophils Nucleated RBCs Differential Comment Other Cell Type RBC Morphology Polychromasia Hypochromasia Poikilocytosis Basophilic Stippling Anisocytosis Microcytosis Macrocytosis Spherocytes Target Cells Tear Drop Cells Ovalocytes Stomatocytes [place] Bodies [place] Cells Acanthocytes (Spur) Schistocytes PT INR Sodium 141 Potassium 3.6 Chloride 108 H Carbon Dioxide 19.0 L Anion Gap 14.0 H BUN 6 L Creatinine 0.56 Estimated GFR/1.73 m2 >= 60.00 Glucose 108 H Calcium 8.0 L Magnesium 1.4 L Total Bilirubin AST ALT Alkaline Phosphatase Total Protein Albumin TSH Free T4 Patient ABO/Rh Antibody Screen Imaging Imaging Studies: X-ray of the left hip shows a shortened and impacted femoral neck fracture of the left hip. Next CT scan of the left hip demonstrates a comminuted femoral neck fracture with proximal extension in the lateral head neck junction all the way down to the medial aspect of the femoral neck at the insertion to the lesser trochanter. There is significant displacement in the AP dimension as well as shortening.
[2018-09-17] MEDS: Lactated Ringers 1,000 ML 200 ML IV (14:50)
[2018-09-17] MEDS: ceFAZolin 2 GM/50 ML BAG IVPB (15:00)
--- NOTE | 2018-09-17 15:10 | DI.RAD_ITS ---
SYMPTOM/DIAGNOSIS: LEFT FEMORAL NECK FRACTURE C-ARM FLUOROSCOPY Fluoroscopy Time: 29.3 SEC Fluoroscopy was provided in the O.R. for Dr. Escobedo.. Hard copy images show placement of a left hip prosthesis. Components appear well aligned.
[2018-09-17] MEDS: Ketorolac 30 MG/ML VIAL (16:20)
[2018-09-17] MEDS: Normal Saline 20 ML VIAL (16:20)
--- NOTE | 2018-09-17 16:55 | DI.RAD_ITS ---
SYMPTOM/DIAGNOSIS: ; FRACTURED LEFT FEMUR PORTABLE PELVIS: The patient is status post placement of a left hip prosthesis. The components appear well aligned. The right hip is unremarkable.
[2018-09-17] MEDS: Nicotine 14 MG/24 HR PATCH TD (18:16)
--- NOTE | 2018-09-17 19:49 | ROE_ITS ---
Date of service: 09/17/18 Time of Service: 17:28 Operative Note DATE OF PROCEDURE: 09/17/18 PRE-OP DIAGNOSIS: Left femoral neck fracture POST-OP DIAGNOSIS: same PROCEDURE: Left Anterior Total Hip Arthroplasty SURGEON: Guru Escobedo [employer] MANAGER: Cecilia Altamirano ANESTHESIA: spinal ESTIMATED BLOOD LOSS: 200 PATHOLOGY: none sent COMPLICATIONS: None Patient was transported to: PACU Patient's condition: stable Implants: 1. Depuy [place] Acetabular Component, 48 mm 2. Depuy Acetabular Liner, 48x32 mm 3. Depuy Corail standard Collared femoral Stem, Size 10 4. Depuy Altrx Ceramic Femoral Head, Size 32+ 9mm Indications: Corina is a 63-year-old who fell yesterday onto her left hip. She was diagnosed with a femoral neck fracture and I was consulted for evaluation of her care. Given the amount of displacement, comminution, and her age, I recommended a hip replacement. I discussed the technical details of a hip replacement. I explained the risks of the procedure to include, but not limited to, bleeding, infection, pain, stiffness, fracture, damage to nerves and vessels, damage to muscles and tendons, loosening, instability, leg length inequality, need for repeat procedure, blood clot and cardiopulmonary demise. Despite these risks, Corina elected to proceed. Findings: There is a comminuted fracture of the femoral neck starting at the lateral aspect of the femoral head with some comminution and extending medially towards the top of the lesser trochanter. In general, the bone was quite soft. Procedure Description: Corina was greeted in the preoperative holding area where the correct side was identified and marked. The consent was reviewed with the patient and signed in her hospital room prior to coming down to the preoperative area. The history and physical was updated. All questions were answered. Corina was taken back to the operating room. A spinal anesthestic was then administered. The patient was placed into the supine position on the operating room table. The patient was then positioned onto the ARCH table. Both feet were wrapped with [place] cotton wrap along with Coban. The feet were placed in specialized boots for the ARCH table, well seated within the boot and secured. SCDs were applied. The patient was then slid down onto a peroneal post and the nonoperative leg was secured in a leg parks attached to the table. The operative side was placed into the ARCH table attachment and bed height and positioning was secured. A preoperative AP pelvis was obtained to serve as a reference for determining leg lengths. Prophylactic antibiotics in the form of cefazolin were administered. 1g of Tranxemic Acid was given intravenously within 30 minutes of incision. The left leg was then prepped with Chloraprep and draped in a standard fashion with a large shower-curtain type drape with Iodine impregnated skin protection. A timeout to confirm correct identity, side and site, procedure, allergies, anesthesia, and medical concerns was performed. An obliquely oriented incision was made starting lateral to the ASIS and running distal over the Tensor Fascia Chiquita (TFL) muscle belly toward the fibular head, approximately 10cm. The skin and soft tissue was dissected sharply, through Sean?s fascia, and to the fascia of the TFL. With the fascia and superior border of the IT band identified, the fascia was incised with a new knife just above any perforators from the IT band. The TFL muscle belly was bluntly dissected away from the fascia and moved laterally. The fat between TFL and rectus was identified to ensure the dissection was not within the TFL. Blunt di ssection created space between abductors and the capsule and retractor was placed over the lateral femoral neck. The fibers of the rectus femoris tendon were identified and these were freed from the anterior capsule. A second cobra retractor was placed around the medial femoral neck. The TFL was further retracted laterally to show the deep fascia. Careful dissection through this layer identified three main crossing vessels of the lateral femoral circumflex. These were cauterized in multiple locations and then cut without any noticeable bleeding. The TFL was further released bluntly from the deep fascia to expose anterior hip capsule and fat the Brayan orthopaedic retractor was then placed beneath the TFL and against sartorius and medial soft tissues to protect and retract the soft tissues. A T-capsulotomy was then performed starting at the superior lateral acetabulum and moving distally to the intertrochanteric ridge. These capsular flaps were tagged with a No. 1 Ethibond and elevated from within. The capsular flaps were released to the shoulder of the lateral neck and to the lesser trochanter to give excellent visualization of the proximal femur. There is notable fracture hematoma. The fracture was identified traversing from the lower part of the neck as it inserts on the intertrochanteric ridge anteriorly and extending out through the lateral femoral head. The fractured femoral head was removed from the wound. A neck osteotomy was performed to freshen the cut based on preoperative templating. This cut started in the shoulder and of the lateral neck and exited medially. The saw was at all times directed medially to avoid injury to the greater trochanter. There was a notable defect over the anterior aspect of the proximal femur. This is a small area at most 1 cm wide and about 1 cm length. It only involved the periphery of the cortex and did not involve any of the cancellus bone and there was a portion of inner cortex still attached. 6cm of traction was applied to the leg and the osteotomy opened. This was measured on the back table to determing the starting reamer size. Portions of the rectus obscuring visualization were minimally elevated off the superior acetabulum. An anterior retractor was placed over the anterior wall between capsule and labrum. A posterior retractor was placed similarly. This provided excellent visualization. The contents of the cotyloid fossa were removed with electrocautery and the labrum was removed with a knife. Acetabular reaming began with a 43 mm reamer. This first reaming was directed anterior to posterior and medial to get down to the true floor. Her bone was notably soft and with just a few spends of the reamer the inner table was reached. I then reamed sequentially up to a 47 mm reamer where good fit was obtained. It was noted that the inner table was reamed through by small amount with only may be thin piece of bone left behind. However, the pelvis itself was not violated. The larger reamers were oriented based on anatomical reference of the anterior and lateral pradhan to ensure proper abduction and anteversion. Positioning and size was confirmed with the fluoroscopy. A 48 mm Depuy [place] acetabular component was selected. The deep tissues were irrigated. The acetabular component was then impacted in a position of about 40-45 degrees of abduction and 15-20 degrees of anteversion, using the patient?s anatomy as the ultimate landmark. Fluoroscopy was used to confirm this. There was excellent unit reactor operator of the acetabular component and the inserting handle was removed. The acetabular liner, Depuy 48x32 mm polyethylene liner, was inserted and lined up with the tines of the acetabular component. There was no soft tissue interposition. The liner was then impacted into position and confirmed to be well-seated. A portion of the donald-articular cocktail was then injected around the acetabulum into the capsule and periosteum. This cocktail consisted of 50cc of 0.25% Bupivicaine and 20cc of Exparel, expanded to a total of 120cc. Traction was released from the femur. The leg was rotated to 120 degrees. Any remaining medial capsule was released until the lesser trochanter was easily palpable. A Penaloza retractor was placed medially. The lateral capsule was further released into the shoulder to allow access to the greater trochanter. A Pen[place]za retractor was placed over the greater trochanter which allowed the trochanter to flip in front of the capsule for excellent exposure. The leg was brought down into maximal extension and 20 degrees of adduction while ensuring there was no impingement on the acetabulum. Any remnant capsule within the trochanter was released. Piriformis and obturator externis were identified and protected. There was excellent access to the proximal femur. The lateral neck remnant was removed with a rongeur. A blunt canal probe was used to identify the canal and trajectory for later broaching. A box osteotome initiated the broach course. A small curved rasp and a curved curette were used to work laterally. Broaching then began with a size 8 [place] broach. This was inserted manually around the trochanter and into the canal before mallet blows. The broach was seated to a few millimeters below the cut level based on the neck cut and the preoperative template. Sequential broaching was continued until a tight fit was obtained with good rotational control of the femur. A trial standard neck was inserted along with a +5 trial head. The leg was brought out of extension and adduction and then reduced with traction and internal rotation. The leg was stable anteriorly in a position of 30 degrees of extension and 90 degrees of external rotation. Fluoroscopy was used to ensure there was no fracture and the stem was seated well. Leg lengths were checked with an AP pelvis and pelvic reference points. It seems like the offset was not quite as much as the contralateral side and on this x-ray as he like her leg lengths were may be even or a few millimeters short. I therefore went up to a +9 trial head and reduced the hip and check another x-ray. Once content with the desired offset and leg lengths, the leg was brought back into extension, external rotation and adduction. The periosteum and surrounding tissue was injected with remaining portion of the donald-articular cocktail. The proximal femur was irrigated as well as the deep tissues. The Depuy [place] standard collared stem, size 10, was then manually inserted into the proximal femur making sure to control rotation. It was then malleted into position with light blows, giving breaks to allow bone expansion and decrease risk of fracture. The selected Depuy Altrx Ceramic Head, size 32+9 mm, was then placed onto the clean and dry trunnion and secured with impaction onto the tapered fit. The leg was brought back out of extension and adduction and reduced with traction and internal rotation. Stability was confirmed with no shuck at 90 degrees of external rotation and 30 degrees of extension. No impingement through range of motion arc. Final x-ray images were obtained with fluoroscopy to confirm adequate positioning and no intraoperative fracture. The deep tissues were thoroughly irrigated with a pulse lavage. The second dose of TXA 1g was administered intravenously. The capsule was then reapproximated with the previously placed Ethibond sutures. The TFL fascia was finally closed with a No. 2 Stratafix, barbed suture. Deep tissues were then reapproximated with 0 Vicryl and a running 2-0 Vicryl. The skin was closed with a running 4-0 Monocryl in a subcuticular fashion. This was reinforced with skin glue. A Mepilex silver dressing was applied. At the end of the case, all counts were correct. Corina was transferred to the hospital bed without difficulty and suffering no apparent complication. Corina has a good prognosis. Physical therapy will start today and without restrictions, weight-bearing as tolerated. Aspirin 81mg BID will be used for DVT prophylaxis.
[2018-09-17] MEDS: Calcium Citrate 950 MG TAB PO (20:11)
[2018-09-17] MEDS: Celecoxib 200 MG CAP PO (20:15)
[2018-09-17] MEDS: oxyCODONE 5 MG TAB PO (23:34)
[2018-09-18] VITALS (27 sets, daily range): BP systolic 111–158; BP diastolic 64–91; PULSE 85–130; RESP 11–24; TEMP 37–37.1; O2SAT 92–100
[2018-09-18] MEDS: FAMOTIDINE 20 MG/50 ML BAG 200 MG IVPB ×2 (02:11→14:20)
[2018-09-18] MEDS: LORazepam 1 MG TAB PO/SL (03:46)
[2018-09-18] MEDS: Normal Saline 1,000 ML 125 ML IV ×3 (03:59→20:27)
[2018-09-18] MEDS: Levothyroxine 25 MCG TAB PO (06:28)
[2018-09-18 07:07] LABS: Abs Immature Grans 0.02 k/cumm (0.0-0.09); Absolute Basophil Count 0.01 k/cumm (0.0-0.2); Absolute Eosinophil Count 0.12 k/cumm (0.0-0.7); Absolute Lymphocyte Count 1.84 k/cumm (1.2-3.4); Absolute Monocyte Count 0.27 k/cumm (0.11-0.7); Absolute Neutrophil Count 2.61 k/cumm (1.2-6.7); Basophils % 0.2; Eosinophils % 2.5; HCT 24.9 % (36.0-46.0); HGB 8.3 g/dL (12.0-15.5); Immature Grans % 0.4; Lymphocytes % 37.8; Mean Corp. HGB Concentration 33.3 g/dL (32.0-36.0); Mean Corpuscular Hemoglobin 35.2 pg (27.0-33.0); Mean Corpuscular Volume 105.5 fL (80-95); Mean Platelet Volume 8.6 fL (8.0-11.0); Monocytes % 5.5; Neutrophils % 53.6; RBC 2.36 m/cumm (4.00-5.20); RBC Distribution Width 12.8 % (11.7-14.6); White Blood Cell Count 4.87 k/cumm (4.4-10.8)
[2018-09-18 07:12] LABS: Anion Gap 9.6 mmol/L (3-11); BUN 3 mg/dL (7-18); CO2 22.4 mmol/L (21.0-32.0); CREATININE 0.63 mg/dL (0.55-1.02); Calcium 7.4 mg/dL (8.5-10.1); Chloride 108 mmol/L (98-107); Glucose 100 mg/dL (70-100); Magnesium 1.8 mg/dL (1.8-2.4); Potassium 3.2 mmol/L (3.5-5.1); Sodium 140 mmol/L (136-145)
[2018-09-18 07:24] LABS: Diff Comment PLT Morph Reviewed; Macrocytosis 1+; Platelet Count 84 x1000/uL (130-400)
[2018-09-18] MEDS: Tiotropium Bromide-Respimat 10 PUFF INH 2 PUFF IH (07:46)
--- NOTE | 2018-09-18 08:34 | W.PM.PROGNOT ---
Date of Service Date of service: 09/18/18 Time of Service: 08:34 Assessment and Plan (1) Fracture of femoral neck, left, closed: Current visit: Yes Status: Acute s/p total arthroplasty 09/18/18. Continue bowel regimen, vitamin D, calcium repletion; written for bisphosphonate. Qualifiers: Encounter type: initial encounter Qualified Code(s): S72.002A - Fracture of unspecified part of neck of left femur, initial encounter for closed fracture (2) COPD (chronic obstructive pulmonary disease): Current visit: No Status: Chronic not in acute exacerbation. continue prn inhalers (3) Hypothyroidism (acquired): Current visit: No Status: Chronic TSH slightly high - patient was not taking her medications prior to discharge - continue synthroid 25 mcg daily, resumed on this admission (4) Right lower lobe pulmonary nodule: Current visit: No Status: Chronic F/u with PCP/pulmonary (5) Discharge planning issues: Current visit: Yes Status: Acute Full code Possible discharge home tomorrow (6) DVT prophylaxis: Current visit: Yes Status: Acute Start asa Subjective Interval history since last seen: Didn't sleep until 5 am. Received 1 dose of oxycodone overnight. States her pain is 1 when sitting, 4 when trying to get up, 6 when ambulating with PT. She did have difficulty with PT and di not feel ready to be discharged home today. Exam Narrative Exam Narrative: General: Very pleasant middle-aged female, A&Ox3, sitting at the edge of the bed. HEENT: EOMI, MMM Heart: RRR, tachycardic, no m/r/g Lungs: CTAB GI: abdomen is soft, nontender, nondistended Extremities: no e/c/c; 2+ pedal pulses B Objective Objective Clinical Data: Abnormal lab results 09/17/18 09/17/18 09/18/18 Range/Units 10:02 10:02 06:20 RBC 3.24 L (4.00-5.20) m/cumm Hgb 11.6 L (12.0-15.5) g/dL Hct 33.1 L (36.0-46.0) % MCV 102.2 H (80-95) fL MCH 35.8 H (27.0-33.0) pg Plt Count 110 L (130-400) x1000/uL Potassium 3.2 L (3.5-5.1) mmol/L Chloride 108 H 108 H (98-107) mmol/L Carbon Dioxide 19.0 L (21.0-32.0) mmol/L Anion Gap 14.0 H (3-11) mmol/L BUN 6 L 3 L (7-18) mg/dL Glucose 108 H (70-100) mg/dL Calcium 8.0 L 7.4 L (8.5-10.1) mg/dL Magnesium 1.4 L (1.8-2.4) mg/dL 09/18/18 Range/Units 06:20 RBC 2.36 L (4.00-5.20) m/cumm Hgb 8.3 L D (12.0-15.5) g/dL Hct 24.9 L D (36.0-46.0) % MCV 105.5 H D (80-95) fL MCH 35.2 H (27.0-33.0) pg Plt Count 84 L (130-400) x1000/uL Potassium (3.5-5.1) mmol/L Chloride (98-107) mmol/L Carbon Dioxide (21.0-32.0) mmol/L Anion Gap (3-11) mmol/L BUN (7-18) mg/dL Glucose (70-100) mg/dL Calcium (8.5-10.1) mg/dL Magnesium (1.8-2.4) mg/dL Vital Signs Temperature 37.3 C 09/17/18 12:32 Temperature Source Temporal Artery Scan 09/17/18 12:32 Pulse 89 09/18/18 06:00 Pulse Rhythm Regular 09/18/18 00:05 Pulse Strength Normal 09/17/18 22:16 Pulse 92 H 09/18/18 06:00 Respiratory Rate 17 09/18/18 06:00 Respiratory Effort Non-Labored 09/18/18 00:05 Respiratory Depth Normal 09/18/18 00:05 Respiratory Pattern Normal 09/18/18 00:05 Blood Pressure 111/64 09/18/18 06:00 Blood Pressure Mean 74 09/18/18 06:00 Blood Pressure Position Sitting 09/16/18 20:31 Pulse Oximetry 93 L 09/18/18 06:00 Oxygen Delivery Method Room Air 09/17/18 12:32 Oxygen Flow Rate 0 06/20/19 12:32 Pain Level 5 09/17/18 23:34 Comment 09/17/18 22:10 Intake & Output 09/17/18 09/17/18 09/18/18 11:59 23:59 11:59 Intake Total 1275.25 / 3459.00 2183.75 / 3459.00 1227.083 / 1227.083 Output Total 900 / 1730 830 / 1730 Balance 375.25 / 1729.00 1353.75 / 1729.00 1227.083 / 1227.083 Weight 55 kg Intake: IV 1275.25 / 2979.00 1703.75 / 2979.00 1027.083 / 1027.083 Oral 480 / 480 200 / 200 Output: Urine 900 / 1480 580 / 1480 Estimated Blood Loss 250 / 250 Other: Urine Color Pale Yellow Yellow Urine Appearance Clear Clear Clear Urine Odor None Comment Alba to gravity. Voiding Methods Indwelling Catheter Laboratory Results WBC 4.87 k/cumm (4.4-10.8) D 09/18/18 06:20 RBC 2.36 m/cumm (4.00-5.20) L 09/18/18 06:20 Hgb 8.3 g/dL (12.0-15.5) L D 09/18/18 06:20 Hct 24.9 % (36.0-46.0) L D 09/18/18 06:20 MCV 105.5 fL (80-95) H D 09/18/18 06:20 MCH 35.2 pg (27.0-33.0) H 09/18/18 06:20 MCHC 33.3 g/dL (32.0-36.0) 09/18/18 06:20 RDW 12.8 % (11.7-14.6) 09/18/18 06:20 Plt Count 84 x1000/uL (130-400) L 09/18/18 06:20 MPV 8.6 fL (8.0-11.0) 09/18/18 06:20 Immature Gran % 0.4 09/18/18 06:20 Neutrophils % 53.6 09/18/18 06:20 Band Neutrophils % Cancelled 09/17/18 09:02 Lymphocytes % 37.8 09/18/18 06:20 Atypical Lymphs % Cancelled 09/17/18 09:02 Monocytes % 5.5 09/18/18 06:20 Eosinophils % 2.5 09/18/18 06:20 Basophils % 0.2 09/18/18 06:20 Metamyelocytes % Cancelled 09/17/18 09:02 Myelocytes % Cancelled 09/17/18 09:02 Promyelocytes % Cancelled 09/17/18 09:02 Absolute Neutrophils 2.61 k/cumm (1.2-6.7) 09/18/18 06:20 Absolute Lymphocytes 1.84 k/cumm (1.2-3.4) 09/18/18 06:20 Absolute Monocytes 0.27 k/cumm (0.11-0.7) 09/18/18 06:20 Absolute Eosinophils 0.12 k/cumm (0.0-0.7) 09/18/18 06:20 Absolute Basophils 0.01 k/cumm (0.0-0.2) 09/18/18 06:20 Nucleated RBCs Cancelled 09/17/18 09:02 Differential Comment Plt morph reviewed 09/18/18 06:20 Other Cell Type Cancelled 09/17/18 09:02 RBC Morphology See below 09/18/18 06:20 Polychromasia Cancelled 09/17/18 09:02 Hypochromasia Cancelled 09/17/18 09:02 Poikilocytosis Cancelled 09/17/18 09:02 Basophilic Stippling Cancelled 09/17/18 09:02 Anisocytosis Cancelled 09/17/18 09:02 Microcytosis Cancelled 09/17/18 09:02 Macrocytosis 1+ 09/18/18 06:20 Spherocytes Cancelled 09/17/18 09:02 Target Cells Cancelled 09/17/18 09:02 Tear Drop Cells Cancelled 09/17/18 09:02 Ovalocytes Cancelled 09/17/18 09:02 Stomatocytes Cancelled 09/17/18 09:02 [place] Bodies Cancelled 09/17/18 09:02 [place] Cells Cancelled 09/17/18 09:02 Acanthocytes (Spur) Cancelled 09/17/18 09:02 Schistocytes Cancelled 09/17/18 09:02 PT 10.6 sec (9.3-11.0) 09/17/18 10:02 INR 1.1 (0.9-1.1) 09/17/18 10:02 Sodium 140 mmol/L (136-145) 09/18/18 06:20 Potassium 3.2 mmol/L (3.5-5.1) L 09/18/18 06:20 Chloride 108 mmol/L (98-107) H 09/18/18 06:20 Carbon Dioxide 22.4 mmol/L (21.0-32.0) 09/18/18 06:20 Anion Gap 9.6 mmol/L (3-11) 09/18/18 06:20 BUN 3 mg/dL (7-18) L 09/18/18 06:20 Creatinine 0.63 mg/dL (0.55-1.02) 09/18/18 06:20 Estimated GFR/1.73 m2 >= 60.00 (mL/min/1.73m2) 09/18/18 06:20 Glucose 100 mg/dL (70-100) 09/18/18 06:20 Calcium 7.4 mg/dL (8.5-10.1) L 09/18/18 06:20 Magnesium 1.8 mg/dL (1.8-2.4) 09/18/18 06:20 Total Bilirubin 0.3 mg/dL (0.2-1.0) 09/16/18 23:05 AST 74 U/L (15-37) H 09/16/18 23:05 ALT 64 U/L (12-78) 09/16/18 23:05 Alkaline Phosphatase 100 U/L (46-116) 09/16/18 23:05 Total Protein 6.8 g/dL (6.4-8.2) 09/16/18 23:05 Albumin 3.3 g/dL (3.4-5.0) L 09/16/18 23:05 TSH 5.49 uIU/mL (0.358-3.74) H 09/17/18 06:35 Free T4 0.77 ng/dL (0.76-1.46) 09/17/18 06:35 Patient ABO/Rh A Positive 09/16/18 23:05 Antibody Screen Negative 09/16/18 23:05
[2018-09-18] MEDS: Potassium Chloride 20 MEQ TABCR 40 MEQ PO (08:46)
[2018-09-18] MEDS: Docusate Sodium 100 MG CAP PO (08:46)
[2018-09-18] MEDS: Calcium Citrate 950 MG TAB PO ×2 (08:46→20:25)
[2018-09-18] MEDS: Folic Acid 1 MG TAB PO (08:46)
[2018-09-18] MEDS: Multivitamin TAB 1 TAB PO (08:46)
[2018-09-18] MEDS: Cholecalciferol (Vitamin D3) 1,000 UNIT TAB 1000 UNITS PO (08:46)
[2018-09-18] MEDS: Celecoxib 200 MG CAP PO ×2 (08:46→20:25)
[2018-09-18] MEDS: Thiamine 100 MG TAB PO (08:46)
--- NOTE | 2018-09-18 09:21 | W.PM.DS.N ---
Date of service: 09/18/18 Time of Service: 09:21 DS: Diagnosis Discharge Diagnosis (1) Fracture of femoral neck, left, closed: Status: Acute (2) Osteoporosis: Status: Chronic (3) Alcohol abuse: Status: Chronic Discharge Plan Disposition Patient Disposition: HOME Condition: Improving Discharge Details Chief Complaint: Orthopedic Clinical Impression: Closed fracture of left hip, Incidental pulmonary nodule Reason For Visit: LEFT FEMORAL FRACTURE Admit Date/Time: 09/16/18 22:23 Admit Provider: Pietro Perkins Attending Provider: Pietro Perkins Primary Care Provider: Abhijeet Castillo [facility] Course: 63-year-old female with a past medical history of osteoarthritis, COPD, hypothyroidism, GERD presents emergency department after mechanical fall landing on her left side with immediate left-sided hip pain and inability to ambulate. Evaluation in the ER review revealed an impacted left femoral neck fracture. Patient was admitted for surgical repair of the same. Dr. Soares, orthopedic surgeon public relations coordinator, was notified by the ER personnel. Patient denies any syncope, palpitations, chest pain or pressure. She had a mechanical fall on a wet doorstep landing on her left side. She has had no antecedent episodes of chest pain/pressure, unusual dyspnea. Her EKG demonstrated NSR at [address]-T changes. She has low voltage across all her leads consistent w/ COPD. Her CXR demonstrates a chronic RLL lung nodule that is 16 mm and slowly has grown over the years. Otherwise no infiltrates. I think that the lung nodule can be followed as an outpatient and clinically she is acceptable for ORIF of her hip fracture. During her hospital course she had repair of the left femoral fracture. She has been doing well, ambulating with a walker. Her vitamin D was low so she was started on vitamin D with calcium, she can follow up as an outpatient. She did have some pain to be expected. She will need to follow up with ortho as planned and her PCP in 1-2 weeks. She denies chest pain, shortness of breath, nausea, vomiting, diarrhea. 1) Fracture of femoral neck, left, closed: s/p total arthroplasty 09/18/18. Continue bowel regimen, vitamin D, calcium repletion; written for bisphosphonate. Qualifiers: Encounter type: initial encounter Qualified Code(s): S72.002A - Fracture of unspecified part of neck of left femur, initial encounter for closed fracture (2) COPD (chronic obstructive pulmonary disease): not in acute exacerbation. continue prn inhalers (3) Hypothyroidism (acquired): TSH slightly high - patient was not taking her medications prior to discharge - continue synthroid 25 mcg daily, resumed on this admission (4) Right lower lobe pulmonary nodule: F/u with PCP/pulmonary (5) Discharge planning issues: discharge home tomorrow (6) DVT prophylaxis: Start asa Home Meds and New Rx's Prescriptions: New alendronate 70 mg Tablet 70 mg PO Sa@0700 Qty: 4 RF: 3 docusate sodium [Colace] 100 mg Capsule 100 mg PO BID Qty: 0 RF: 0 calcium citrate [Calcitrate] 200 mg (950 mg) Tablet 950 mg PO BID Qty: 60 RF: 3 cholecalciferol (vitamin D3) 1,000 unit Tablet 1,000 units PO DAILY Qty: 30 RF: 3 acetaminophen 500 mg tablet 1,000 mg PO Q8H PRN (Reason: pain) Qty: 90 RF: 3 oxycodone 5 mg tablet 5 mg PO Q6H PRN PRNQty: 12 RF: 0 Continued Serevent Diskus 1 EACH blister with device 1 puff BID RF: 0 albuterol sulfate 8.5 GM HFA aerosol inhaler 2 puff PRN PRNRF: 0 Spiriva with HandiHaler 18 MCG capsule, w/inhalation device 1 puff DAILY RF: 0 levothyroxine 25 MCG tablet 25 mcg PO DAILY RF: 0 Dexilant 30 MG capsule,biphase delayed releas 30 mg PO DAILY RF: 0 naproxen 500 MG tablet 1 tab PO BID Qty: 60 RF: 3 Changed aspirin [Aspir-Low] 81 MG tablet,delayed release (DR/EC) 1 tab PO BID Qty: 60 RF: 0 Discharge Instructions Instructions: Hip Fracture (GEN), Vitamin D Deficiency (GEN) Additional Instructions: Dr. Escobedo?s Total Hip Discharge Instructions Activity: The most important activity is to walk. You should try to take short walks a few times a day. You have no restrictions on movement or positioning, but do not try to force what you do. You should use the walker at all times untill instructed otherwise by Dr. Escobedo. You will find some stiffness and weakness with hip flexion (lifting your knee). Do not try to strengthen this too early, continue to practice walking and stairs and this will come. - Physical therapy can be helpful to help return you to a normal gait and improve your flexibility and strength. This can start around 2 weeks. For some patients, it?s not necessary. Usually this is determined at the time of discharge or at the first post-operative visit. - You should wear the NELL hose on both legs for 4 weeks. Dressing: Keep the surgical dressing in place for at least one week. After the first week it may be removed and replace with light gauze and tape or nothing. It may get wet after 3 days but avoid soaking the dressing. If it gets wet, just lightly pat dry. It is important to always keep some gauze between skin folds, especially when you are sitting. Spend some time with the wound exposed when you are lying flat as the incision does wrinkle onto itself. Medications: - You should take Tylenol and an anti-inflammatory Naproxen as your primary pain control medications - You have been prescribed a stronger pain medication Oxycodone for breakthrough pain, take as needed as prescribed. - You should continue to take a stomach acid reduction agent, Dexilant, to help reduce stomach acid and reflux. - You will be taking Aspirin 81mg twice a day for DVT prevention unless instructed otherwise. - If you have constipation you should take Colace or Miralax (both [id number]). It takes most people 3-4 days to have a bowel movement. - To treat your osteoporosis, you have been prescribed Calcium, Vitamin D, and Fosamax. The Fosamax you will take every week. Follow-up: 2 weeks Stand Alone Forms: Nursing Discharge Form Referrals: Guru Escobedo MD [ [facility] STAFF PHYSICIAN] - (Please call the office on Friday morning to schedule an appointment [phone]) Activity:: Activity as Tolerated Equipment/Supplies:: Walker Diet:: As Tolerated Discharge Orders Discharge Orders: Discharge Order (Routine); Ordered 09/19/18 Ordered By: Maria De Jesus Villalba Discharge Data Discharge Date/Time-TO BE ENTERED AT DEPARTURE: 09/19/18 15:23 DS: Data Vitals/I&O Vitals and I&O: Vital Signs Temperature 37.3 C 09/17/18 12:32 Temperature Source Temporal Artery Scan 09/17/18 12:32 Pulse 113 H 09/18/18 08:37 Pulse Rhythm Regular 09/18/18 00:05 Pulse Strength Normal 09/17/18 22:16 Pulse 130 H 09/18/18 08:40 Respiratory Rate 19 09/18/18 08:40 Respiratory Effort Non-Labored 09/18/18 00:05 Respiratory Depth Normal 09/18/18 00:05 Respiratory Pattern Normal 09/18/18 00:05 Blood Pressure 141/88 H 09/18/18 08:37 Blood Pressure Mean 101 09/18/18 08:37 Blood Pressure Position Sitting 09/16/18 20:31 Pulse Oximetry 95 09/18/18 08:40 Oxygen Delivery Method Room Air 09/17/18 12:32 Oxygen Flow Rate 0 09/17/18 12:32 Pain Level 5 09/17/18 23:34 Comment 09/17/18 22:10 Intake & Output 09/17/18 09/17/18 09/18/18 11:59 23:59 11:59 Intake Total 1275.25 / 3855.667 2580.417 / 3855.667 1227.083 / 1227.083 Output Total 900 / 1730 830 / 1730 285 / 285 Balance 375.25 / 2125.667 1750.417 / 2125.667 942.083 / 942.083 Weight 55 kg Intake: IV 1275.25 / 3375.667 2100.417 / 3375.667 1027.083 / 1027.083 Oral 480 / 480 200 / 200 Output: Urine 900 / 1480 580 / 1480 285 / 285 Estimated Blood Loss 250 / 250 Other: Urine Color Pale Yellow Yellow Yellow Urine Appearance Clear Clear Clear Urine Odor None Comment Alba to gravity. Voiding Methods Indwelling Catheter Labs on day of discharge: Labs from last 24 hours 09/18/18 09/18/18 09/18/18 06:20 06:20 06:20 WBC 4.87 D RBC 2.36 L Hgb 8.3 L D Hct 24.9 L D MCV 105.5 H D MCH 35.2 H MCHC 33.3 RDW 12.8 Plt Count 84 L MPV 8.6 Immature Gran % 0.4 Neutrophils % 53.6 Band Neutrophils % Lymphocytes % 37.8 Atypical Lymphs % Monocytes % 5.5 Eosinophils % 2.5 Basophils % 0.2 Metamyelocytes % Myelocytes % Promyelocytes % Absolute Neutrophils 2.61 Absolute Lymphocytes 1.84 Absolute Monocytes 0.27 Absolute Eosinophils 0.12 Absolute Basophils 0.01 Nucleated RBCs Differential Comment Plt morph reviewed Other Cell Type RBC Morphology See below Polychromasia Hypochromasia Poikilocytosis Basophilic Stippling Anisocytosis Microcytosis Macrocytosis 1+ Spherocytes Target Cells Tear Drop Cells Ovalocytes Stomatocytes [place] Bodies [place] Cells Acanthocytes (Spur) Schistocytes PT INR Sodium 140 Potassium 3.2 L Chloride 108 H Carbon Dioxide 22.4 Anion Gap 9.6 BUN 3 L Creatinine 0.63 Estimated GFR/1.73 m2 >= 60.00 Glucose 100 Calcium 7.4 L Magnesium 1.8 25-OH Vitamin D Total Pending 09/17/18 09/17/18 09/17/18 10:02 10:02 10:02 WBC 8.47 RBC 3.24 L Hgb 11.6 L Hct 33.1 L MCV 102.2 H MCH 35.8 H MCHC 35.0 RDW 13.1 Plt Count 110 L MPV 8.7 Immature Gran % 0.2 Neutrophils % 70.8 Band Neutrophils % Lymphocytes % 23.0 Atypical Lymphs % Monocytes % 5.0 Eosinophils % 0.6 Basophils % 0.4 Metamyelocytes % Myelocytes % Promyelocytes % Absolute Neutrophils 6.00 Absolute Lymphocytes 1.95 Absolute Monocytes 0.42 Absolute Eosinophils 0.05 Absolute Basophils 0.03 Nucleated RBCs Differential Comment Other Cell Type RBC Morphology Polychromasia Hypochromasia Poikilocytosis Basophilic Stippling Anisocytosis Microcytosis Macrocytosis Spherocytes Target Cells Tear Drop Cells Ovalocytes Stomatocytes [place] Bodies [place] Cells Acanthocytes (Spur) Schistocytes PT 10.6 INR 1.1 Sodium 141 Potassium 3.6 Chloride 108 H Carbon Dioxide 19.0 L Anion Gap 14.0 H BUN 6 L Creatinine 0.56 Estimated GFR/1.73 m2 >= 60.00 Glucose 108 H Calcium 8.0 L Magnesium 1.4 L 25-OH Vitamin D Total 09/17/18 09/17/18 09/17/18 09:02 09:02 08:36 WBC Cancelled RBC Cancelled Hgb Cancelled Hct Cancelled MCV Cancelled MCH Cancelled MCHC Cancelled RDW Cancelled Plt Count Cancelled MPV Cancelled Immature Gran % Cancelled Neutrophils % Cancelled Band Neutrophils % Cancelled Lymphocytes % Cancelled Atypical Lymphs % Cancelled Monocytes % Cancelled Eosinophils % Cancelled Basophils % Cancelled Metamyelocytes % Cancelled Myelocytes % Cancelled Promyelocytes % Cancelled Absolute Neutrophils Cancelled Absolute Lymphocytes Cancelled Absolute Monocytes Cancelled Absolute Eosinophils Cancelled Absolute Basophils Cancelled Nucleated RBCs Cancelled Differential Comment Cancelled Other Cell Type Cancelled RBC Morphology Cancelled Polychromasia Cancelled Hypochromasia Cancelled Poikilocytosis Cancelled Basophilic Stippling Cancelled Anisocytosis Cancelled Microcytosis Cancelled Macrocytosis Cancelled Spherocytes Cancelled Target Cells Cancelled Tear Drop Cells Cancelled Ovalocytes Cancelled Stomatocytes Cancelled [place] Bodies Cancelled [place] Cells Cancelled Acanthocytes (Spur) Cancelled Schistocytes Cancelled PT Cancelled INR Cancelled Sodium Cancelled Potassium Cancelled Chloride Cancelled Carbon Dioxide Cancelled Anion Gap Cancelled BUN Cancelled Creatinine Cancelled Estimated GFR/1.73 m2 Cancelled Glucose Cancelled Calcium Cancelled Magnesium Cancelled 25-OH Vitamin D Total [facility] Medical History Right lower lobe pulmonary nodule (Chronic) Hypothyroidism (acquired) (Chronic) Tobacco abuse (Chronic) Osteoarthritis (Chronic) COPD (chronic obstructive pulmonary disease) (Chronic) Closed left ankle fracture (Resolved) De Quervain's disease (radial styloid tenosynovitis) (Resolved) Right wrist fracture (Resolved) TIA (transient ischemic attack) (Resolved) Surgical History H/O left wrist surgery (Resolved) Colonoscopy - MAC (10/23/16) Family History Mother No problems noted. Other Colon cancer Social History Smoking/Tobacco Use Status: Current every day Tobacco Type: cigarettes Alcohol Intake: current Alcohol Intake frequency: 0-2 drinks per day Alcohol type: beer Drug use: Never Substance use type: does not use Do you feel safe at home: Yes Do you feel safe in your relationship?: Yes
[2018-09-18] MEDS: oxyCODONE 5 MG TAB PO ×2 (09:24→14:20)
--- NOTE | 2018-09-18 09:25 | DSE_ITS ---
Date of service: 09/18/18 Time of Service: 09:21 DS: Diagnosis Discharge Diagnosis (1) Fracture of femoral neck, left, closed: Status: Acute (2) Osteoporosis: Status: Chronic (3) Alcohol abuse: Status: Chronic Discharge Plan Disposition Patient Disposition: HOME Condition: Improving Discharge Details Chief Complaint: Orthopedic Clinical Impression: Closed fracture of left hip, Incidental pulmonary nodule Reason For Visit: LEFT FEMORAL FRACTURE Admit Date/Time: 09/16/18 22:23 Admit Provider: Pietro Perkins Attending Provider: Pietro Perkins Primary Care Provider: Abhijeet Castillo ED Provider: [facility] Course Hospital Course: 63-year-old female with a past medical history of osteoarthritis, COPD, hypothyroidism, GERD presents emergency department after mechanical fall landing on her left side with immediate left-sided hip pain and inability to ambulate. Evaluation in the ER review revealed an impacted left femoral neck fracture. Patient was admitted for surgical repair of the same. Dr. Soares, orthopedic surgeon utility person, was notified by the ER personnel. Patient denies any syncope, palpitations, chest pain or pressure. She had a mechanical fall on a wet doorstep landing on her left side. She has had no antecedent episodes of chest pain/pressure, unusual dyspnea. Her EKG demonstrated NSR at [address]-T changes. She has low voltage across all her leads consistent w/ COPD. Her CXR demonstrates a chronic RLL lung nodule that is 16 mm and slowly has grown over the years. Otherwise no infiltrates. I think that the lung nodule can be followed as an outpatient and clinically she is acceptable for ORIF of her hip fracture. During her hospital course she had repair of the left femoral fracture. She has been doing well, ambulating with a walker. Her vitamin D was low so she was started on vitamin D with calcium, she can follow up as an outpatient. She did have some pain to be expected. She will need to follow up with ortho as planned and her PCP in 1-2 weeks. She denies chest pain, shortness of breath, nausea, vomiting, diarrhea. 1) Fracture of femoral neck, left, closed: s/p total arthroplasty 09/18/18. Continue bowel regimen, vitamin D, calcium repletion; written for bisphosphonate. Qualifiers: Encounter type: initial encounter Qualified Code(s): S72.002A - Fracture of unspecified part of neck of left femur, initial encounter for closed fracture (2) COPD (chronic obstructive pulmonary disease): not in acute exacerbation. continue prn inhalers (3) Hypothyroidism (acquired): TSH slightly high - patient was not taking her medications prior to discharge - continue synthroid 25 mcg daily, resumed on this admission (4) Right lower lobe pulmonary nodule: F/u with PCP/pulmonary (5) Discharge planning issues: discharge home tomorrow (6) DVT prophylaxis: Start asa Home Meds and New Rx's Prescriptions: New alendronate 70 mg Tablet 70 mg PO Sa@0700 Qty: 4 RF: 3 docusate sodium [Colace] 100 mg Capsule 100 mg PO BID Qty: 0 RF: 0 calcium citrate [Calcitrate] 200 mg (950 mg) Tablet 950 mg PO BID Qty: 60 RF: 3 cholecalciferol (vitamin D3) 1,000 unit Tablet 1,000 units PO DAILY Qty: 30 RF: 3 acetaminophen 500 mg tablet 1,000 mg PO Q8H PRN (Reason: pain) Qty: 90 RF: 3 oxycodone 5 mg tablet 5 mg PO Q6H PRN PRNQty: 12 RF: 0 Continued Serevent Diskus 1 EACH blister with device 1 puff BID RF: 0 albuterol sulfate 8.5 GM HFA aerosol inhaler 2 puff PRN PRNRF: 0 Spiriva with HandiHaler 18 MCG capsule, w/inhalation device 1 puff DAILY RF: 0 levothyroxine 25 MCG tablet 25 mcg PO DAILY RF: 0 Dexilant 30 MG capsule,biphase delayed releas 30 mg PO DAILY RF: 0 naproxen 500 MG tablet 1 tab PO BID Qty: 60 RF: 3 Changed aspirin [Aspir-Low] 81 MG tablet,delayed release (DR/EC) 1 tab PO BID Qty: 60 RF: 0 Discharge Instructions Instructions: Hip Fracture (GEN), Vitamin D Deficiency (GEN) Additional Instructions: Dr. Escobedo?s Total Hip Discharge Instructions Activity: The most important activity is to walk. You should try to take short walks a few times a day. You have no restrictions on movement or positioning, but do not try to force what you do. You should use the walker at all times untill instructed otherwise by Dr. Escobedo. You will find some stiffness and weakness with hip flexion (lifting your knee). Do not try to strengthen this too early, continue to practice walking and stairs and this will come. - Physical therapy can be helpful to help return you to a normal gait and i mprove your flexibility and strength. This can start around 2 weeks. For some patients, it?s not necessary. Usually this is determined at the time of discharge or at the first post-operative visit. - You should wear the NELL hose on both legs for 4 weeks. Dressing: Keep the surgical dressing in place for at least one week. After the first week it may be removed and replace with light gauze and tape or nothing. It may get wet after 3 days but avoid soaking the dressing. If it gets wet, just lightly pat dry. It is important to always keep some gauze between skin f olds, especially when you are sitting. Spend some time with the wound exposed when you are lying flat as the incision does wrinkle onto itself. Medications: - You should take Tylenol and an anti-inflammatory Naproxen as your primary pain control medications - You have been prescribed a stronger pain medication Oxycodone for breakthrough pain, take as needed as prescribed. - You should continue to take a stomach acid reduction agent, Dexilant, to help reduce stomach acid and reflux. - You will be taking Aspirin 81mg twice a day for DVT prevention unless instructed otherwise. - If you have constipation you should take Colace or Miralax (both [id number]). It takes most people 3-4 days to have a bowel movement. - To treat your osteoporosis, you have been prescribed Calcium, Vitamin D, and Fosamax. The Fosamax you will take every week. Follow-up: 2 weeks Stand Alone Forms: Nursing Discharge Form Referrals: Guru Escobedo MD [ [facility] STAFF PHYSICIAN] - (Please call the office on Friday morning to schedule an appointment [phone]) Activity:: Activity as Tolerated Equipment/Supplies:: Walker Diet:: As Tolerated Discharge Orders Discharge Orders: Discharge Order (Routine); Ordered 09/19/18 Ordered By: Maria De Jesus Villalba Discharge Data Discharge Date/Time-TO BE ENTERED AT DEPARTURE: 09/19/18 15:23 DS: Data Vitals/I&O Vitals and I&O: Vital Signs Temperature 37.3 C 09/17/18 12:32 Temperature Source Temporal Artery Scan 09/17/18 12:32 Pulse 113 H 09/18/18 08:37 Pulse Rhythm Regular 09/18/18 00:05 Pulse Strength Normal 09/17/18 22:16 Pulse 130 H 09/18/18 08:40 Respiratory Rate 19 09/18/18 08:40 Respiratory Effort Non-Labored 09/18/18 00:05 Respiratory Depth Normal 09/18/18 00:05 Respiratory Pattern Normal 09/18/18 00:05 Blood Pressure 141/88 H 09/18/18 08:37 Blood Pressure Mean 101 09/18/18 08:37 Blood Pressure Position Sitting 09/16/18 20:31 Pulse Oximetry 95 09/18/18 08:40 Oxygen Delivery Method Room Air 09/17/18 12:32 Oxygen Flow Rate 0 09/17/18 12:32 Pain Level 5 09/17/18 23:34 Comment 09/17/18 22:10 Intake & Output 09/17/18 09/17/18 09/18/18 11:59 23:59 11:59 Intake Total 1275.25 / 3855.667 2580.417 / 3855.667 1227.083 / 1227.083 Output Total 900 / 1730 830 / 1730 285 / 285 Balance 375.25 / 2125.667 1750.417 / 2125.667 942.083 / 942.083 Weight 55 kg Intake: IV 1275.25 / 3375.667 2100.417 / 3375.667 1027.083 / 1027.083 Oral 480 / 480 200 / 200 Output: Urine 900 / 1480 580 / 1480 285 / 285 Estimated Blood Loss 250 / 250 Other: Urine Color Pale Yellow Yellow Yellow Urine Appearance Clear Clear Clear Urine Odor None Comment Alba to gravity. Voiding Methods Indwelling Catheter Labs on day of discharge: Labs from last 24 hours 09/18/18 09/18/18 09/18/18 06:20 06:20 06:20 WBC 4.87 D RBC 2.36 L Hgb 8.3 L D Hct 24.9 L D MCV 105.5 H D MCH 35.2 H MCHC 33.3 RDW 12.8 Plt Count 84 L MPV 8.6 Immature Gran % 0.4 Neutrophils % 53.6 Band Neutrophils % Lymphocytes % 37.8 Atypical Lymphs % Monocytes % 5.5 Eosinophils % 2.5 Basophils % 0.2 Metamyelocytes % Myelocytes % Promyelocytes % Absolute Neutrophils 2.61 Absolute Lymphocytes 1.84 Absolute Monocytes 0.27 Absolute Eosinophils 0.12 Absolute Basophils 0.01 Nucleated RBCs Differential Comment Plt morph reviewed Other Cell Type RBC Morphology See below Polychromasia Hypochromasia Poikilocytosis Basophilic Stippling Anisocytosis Microcytosis Macrocytosis 1+ Spherocytes Target Cells Tear Drop Cells Ovalocytes Stomatocytes [place] Bodies [place] Cells Acanthocytes (Spur) Schistocytes PT INR Sodium 140 Potassium 3.2 L Chloride 108 H Carbon Dioxide 22.4 Anion Gap 9.6 BUN 3 L Creatinine 0.63 Estimated GFR/1.73 m2 >= 60.00 Glucose 100 Calcium 7.4 L Magnesium 1.8 25-OH Vitamin D Total Pending 09/17/18 09/17/18 09/17/18 10:02 10:02 10:02 WBC 8.47 RBC 3.24 L Hgb 11.6 L Hct 33.1 L MCV 102.2 H MCH 35.8 H MCHC 35.0 RDW 13.1 Plt Count 110 L MPV 8.7 Immature Gran % 0.2 Neutrophils % 70.8 Band Neutrophils % Lymphocytes % 23.0 Atypical Lymphs % Monocytes % 5.0 Eosinophils % 0.6 Basophils % 0.4 Metamyelocytes % Myelocytes % Promyelocytes % Absolute Neutrophils 6.00 Absolute Lymphocytes 1.95 Absolute Monocytes 0.42 Absolute Eosinophils 0.05 Absolute Basophils 0.03 Nucleated RBCs Differential Comment Other Cell Type RBC Morphology Polychromasia Hypochromasia Poikilocytosis Basophilic Stippling Anisocytosis Microcytosis Macrocytosis Spherocytes Target Cells Tear Drop Cells Ovalocytes Stomatocytes [place] Bodies [place] Cells Acanthocytes (Spur) Schistocytes PT 10.6 INR 1.1 Sodium 141 Potassium 3.6 Chloride 108 H Carbon Dioxide 19.0 L Anion Gap 14.0 H BUN 6 L Creatinine 0.56 Estimated GFR/1.73 m2 >= 60.00 Glucose 108 H Calcium 8.0 L Magnesium 1.4 L 25-OH Vitamin D Total 09/17/18 09/17/18 09/17/18 09:02 09:02 08:36 WBC Cancelled RBC Cancelled Hgb Cancelled Hct Cancelled MCV Cancelled MCH Cancelled MCHC Cancelled RDW Cancelled Plt Count Cancelled MPV Cancelled Immature Gran % Cancelled Neutrophils % Cancelled Band Neutrophils % Cancelled Lymphocytes % Cancelled Atypical Lymphs % Cancelled Monocytes % Cancelled Eosinophils % Cancelled Basophils % Cancelled Metamyelocytes % Cancelled Myelocytes % Cancelled Promyelocytes % Cancelled Absolute Neutrophils Cancelled Absolute Lymphocytes Cancelled Absolute Monocytes Cancelled Absolute Eosinophils Cancelled Absolute Basophils Cancelled Nucleated RBCs Cancelled Differential Comment Cancelled Other Cell Type Cancelled RBC Morphology Cancelled Polychromasia Cancelled Hypochromasia Cancelled Poikilocytosis Cancelled Basophilic Stippling Cancelled Anisocytosis Cancelled Microcytosis Cancelled Macrocytosis Cancelled Spherocytes Cancelled Target Cells Cancelled Tear Drop Cells Cancelled Ovalocytes Cancelled Stomatocytes Cancelled [place] Bodies Cancelled Carlyn Cells Cancelled Acanthocytes (Spur) Cancelled Schistocytes Cancelled PT Cancelled INR Cancelled Sodium Cancelled Potassium Cancelled Chloride Cancelled Carbon Dioxide Cancelled Anion Gap Cancelled BUN Cancelled Creatinine Cancelled Estimated GFR/1.73 m2 Cancelled Glucose Cancelled Calcium Cancelled Magnesium Cancelled 25-OH Vitamin D Total [facility] Medical History Right lower lobe pulmonary nodule (Chronic) Hypothyroidism (acquired) (Chronic) Tobacco abuse (Chronic) Osteoarthritis (Chronic) COPD (chronic obstructive pulmonary disease) (Chronic) Closed left ankle fracture (Resolved) De Quervain's disease (radial styloid tenosynovitis) (Resolved) Right wrist fracture (Resolved) TIA (transient ischemic attack) (Resolved) Surgical History H/O left wrist surgery (Resolved) Colonoscopy - [facility] (10/23/16) Family History Mother No problems noted. Other Colon cancer Social History Smoking/Tobacco Use Status: Current every day Tobacco Type: cigarettes Alcohol Intake: current Alcohol Intake frequency: 0-2 drinks per day Alcohol type: beer Drug use: Never Substance use type: does not use Do you feel safe at home: Yes Do you feel safe in your relationship?: Yes
--- NOTE | 2018-09-18 10:47 | PDOC.CMPRO ---
- If Service Date Differs Date of service: 09/18/18 Time of Service: 10:47 Care Management Progress Note S/O:Corina, is alert and sitting on the edge of the bed. She states she has support at home she is willing to have home health for PT/OT this would be new services for her and will need a face to face. She had thought about being discharged home today however she became dizzy when she ambulated with PT she will need one more day as inpatient. She will need a FWW per PT. A: Corina is a 63 year old female admitted with fracture of the left hip repaired on 09/18/18 P: Corina will be discharged home when medically ready per provider. She will have new home health services PT and OT and a FWW from [facility]. Her sister will provide transport home at time of discharge.
[2018-09-18 12:24] LABS: Vitamin D 25 Total 12.4 ng/ml (30-100)
--- NOTE | 2018-09-18 12:50 | CMPROGNOTE_ITS ---
- If Service Date Differs Date of service: 09/18/18 Time of Service: 10:47 Care Management Progress Note S/O:Corina, is alert and sitting on the edge of the bed. She states she has support at home she is willing to have home health for PT/OT this would be new services for her and will need a face to face. She had thought about being discharged home today however she became dizzy when she ambulated with PT she will need one more day as inpatient. She will need a FWW per PT. A: Corina is a 63 year old female admitted with fracture of the left hip repaired on 09/18/18 P: Corina will be discharged home when medically ready per provider. She will have new home health services PT and OT and a FWW from [facility] of [facility]. Her sister will provide transport home at time of discharge.
--- NOTE | 2018-09-18 13:53 | DI.RAD_ITS ---
SYMPTOMS/DIAGNOSIS: S/P MOBILIZATION AFTER TOTAL HIP ARTHROPLASTY FOR FRACTURE AP VIEW OF THE LEFT HIP: Comparison is made with August,. There has been no change in the alignment of the left hip prosthesis. There is no evidence of an acute fracture. Some residual postsurgical air remains in the soft tissues.
--- NOTE | 2018-09-18 16:38 | W.PM.PROGNOT ---
Date of Service Date of service: 09/18/18 Time of Service: 08:38 Assessment and Plan (1) Fracture of femoral neck, left, closed: Current visit: Yes Status: Demetria Arriaga is a 63-year-old who had a left femoral neck fracture. She is that is post hip replacement for the left femoral neck fracture. She does have some pain which is not unexpected given the amount of surgery which was performed. However, expect that she will quickly improved. I encouraged her to be diligent with her physical therapy. She may stand on it completely but she is use a walker at all times. Once she is able to mobilize independently she can be discharged home. She may benefit from home health physical therapy based on physical therapy recommendations. Given her young age and this fall from standing hip fracture, I would recommend treating her for osteoporosis. She has been started on calcium and vitamin D and alendronate. She may discharge with aspirin 81 mg twice daily. I will see her in 2 weeks after discharge. Qualifiers: Encounter type: initial encounter Qualified Code(s): S72.002A - Fracture of unspecified part of neck of left femur, initial encounter for closed fracture Subjective Interval history since last seen: Corina reports that the pain she is now having is different than before. She reports pain throughout the left hip. She has been able to move in bed. She has been able to move with much less pain than she did before surgery. She has not been out of bed yet. She did not sleep well last night and was notably fidgety. Her vital signs been stable. She denies fevers or chills. No chest pain or shortness of breath. Exam Narrative Exam Narrative: Evaluation left hip shows some mild swelling. No significant ecchymosis. The dressings clean dry and intact. Some mild pain to palpation throughout the left hip. She tolerates internal and external rotation without any significant increase in pain. Leg lengths appear equal. She endorses full sensation of the femoral nerve and lateral femoral cutaneous nerve. She has intact ankle dorsiflexion, plantarflexion, EHL, FHL. Objective Objective Clinical Data: Abnormal lab results 09/18/18 09/18/18 09/18/18 Range/Units 06:20 06:20 06:20 RBC 2.36 L (4.00-5.20) m/cumm Hgb 8.3 L D (12.0-15.5) g/dL Hct 24.9 L D (36.0-46.0) % MCV 105.5 H D (80-95) fL MCH 35.2 H (27.0-33.0) pg Plt Count 84 L (130-400) x1000/uL Potassium 3.2 L (3.5-5.1) mmol/L Chloride 108 H (98-107) mmol/L BUN 3 L (7-18) mg/dL Calcium 7.4 L (8.5-10.1) mg/dL 25-OH Vitamin D Total 12.4 L (30-100) ng/ml Vital Signs Temperature 37.3 C 09/17/18 12:32 Temperature Source Temporal Artery Scan 09/17/18 12:32 Pulse 113 H 09/18/18 08:37 Pulse Rhythm Regular 09/18/18 09:00 Pulse Strength Normal 09/17/18 22:16 Pulse 130 H 09/18/18 08:40 Respiratory Rate 19 09/18/18 08:40 Respiratory Effort 09/18/18 09:00 Respiratory Depth Normal 09/18/18 09:00 Respiratory Pattern Normal 09/18/18 09:00 Blood Pressure 141/88 H 09/18/18 08:37 Blood Pressure Mean 101 09/18/18 08:37 Blood Pressure Position Sitting 09/16/18 20:31 Pulse Oximetry 95 09/18/18 08:40 Oxygen Delivery Method Room Air 09/18/18 07:45 Oxygen Flow Rate 0 09/18/18 07:45 Pain Level 7 09/18/18 14:20 Comment 09/17/18 22:10 Intake & Output 09/17/18 09/18/18 09/18/18 23:59 11:59 23:59 Intake Total 2580.417 / 3855.667 1627.083 / 2867.083 1240 / 2867.083 Output Total 830 / 1730 285 / 1175 890 / 1175 Balance 1750.417 / 2125.667 1342.083 / 1692.083 350 / 1692.083 Intake: IV 2100.417 / 3375.667 1027.083 / 2027.083 1000 / 202.083 Oral 480 / 480 600 / 840 240 / 840 Output: Urine 580 / 1480 285 / 735 450 / 735 Stool 440 / 440 Estimated Blood Loss 250 / 250 Other: Urine Color Yellow Yellow Yellow Urine Appearance Clear Clear Clear Urine Odor None Stool Size Moderate Stool Characteristics Liquid Voiding Methods Bedside Commode Laboratory Results WBC 4.87 k/cumm (4.4-10.8) D 09/18/18 06:20 RBC 2.36 m/cumm (4.00-5.20) L 09/18/18 06:20 Hgb 8.3 g/dL (12.0-15.5) L D 09/18/18 06:20 Hct 24.9 % (36.0-46.0) L D 09/18/18 06:20 MCV 105.5 fL (80-95) H D 09/18/18 06:20 MCH 35.2 pg (27.0-33.0) H 09/18/18 06:20 MCHC 33.3 g/dL (32.0-36.0) 09/18/18 06:20 RDW 12.8 % (11.7-14.6) 09/18/18 06:20 Plt Count 84 x1000/uL (130-400) L 09/18/18 06:20 MPV 8.6 fL (8.0-11.0) 09/18/18 06:20 Immature Gran % 0.4 09/18/18 06:20 Neutrophils % 53.6 09/18/18 06:20 Band Neutrophils % Cancelled 09/17/18 09:02 Lymphocytes % 37.8 09/18/18 06:20 Atypical Lymphs % Cancelled 09/17/18 09:02 Monocytes % 5.5 09/18/18 06:20 Eosinophils % 2.5 09/18/18 06:20 Basophils % 0.2 09/18/18 06:20 Metamyelocytes % Cancelled 09/17/18 09:02 Myelocytes % Cancelled 09/17/18 09:02 Promyelocytes % Cancelled 09/17/18 09:02 Absolute Neutrophils 2.61 k/cumm (1.2-6.7) 09/18/18 06:20 Absolute Lymphocytes 1.84 k/cumm (1.2-3.4) 09/18/18 06:20 Absolute Monocytes 0.27 k/cumm (0.11-0.7) 09/18/18 06:20 Absolute Eosinophils 0.12 k/cumm (0.0-0.7) 09/18/18 06:20 Absolute Basophils 0.01 k/cumm (0.0-0.2) 09/18/18 06:20 Nucleated RBCs Cancelled 09/17/18 09:02 Differential Comment Plt morph reviewed 09/18/18 06:20 Other Cell Type Cancelled 09/17/18 09:02 RBC Morphology See below 09/18/18 06:20 Polychromasia Cancelled 09/17/18 09:02 Hypochromasia Cancelled 09/17/18 09:02 Poikilocytosis Cancelled 09/17/18 09:02 Basophilic Stippling Cancelled 09/17/18 09:02 Anisocytosis Cancelled 09/17/18 09:02 Microcytosis Cancelled 09/17/18 09:02 Macrocytosis 1+ 09/18/18 06:20 Spherocytes Cancelled 09/17/18 09:02 Target Cells Cancelled 09/17/18 09:02 Tear Drop Cells Cancelled 09/17/18 09:02 Ovalocytes Cancelled 09/17/18 09:02 Stomatocytes Cancelled 09/17/18 09:02 Brand[place] Bodies Cancelled 09/17/18 09:02 [place] Cells Cancelled 09/17/18 09:02 Acanthocytes (Spur) Cancelled 09/17/18 09:02 Schistocytes Cancelled 09/17/18 09:02 PT 10.6 sec (9.3-11.0) 09/17/18 10:02 INR 1.1 (0.9-1.1) 09/17/18 10:02 Sodium 140 mmol/L (136-145) 09/18/18 06:20 Potassium 3.2 mmol/L (3.5-5.1) L 09/18/18 06:20 Chloride 108 mmol/L (98-107) H 09/18/18 06:20 Carbon Dioxide 22.4 mmol/L (21.0-32.0) 09/18/18 06:20 Anion Gap 9.6 mmol/L (3-11) 09/18/18 06:20 BUN 3 mg/dL (7-18) L 09/18/18 06:20 Creatinine 0.63 mg/dL (0.55-1.02) 09/18/18 06:20 Estimated GFR/1.73 m2 >= 60.00 (mL/min/1.73m2) 09/18/18 06:20 Glucose 100 mg/dL (70-100) 09/18/18 06:20 Calcium 7.4 mg/dL (8.5-10.1) L 09/18/18 06:20 Magnesium 1.8 mg/dL (1.8-2.4) 09/18/18 06:20 Total Bilirubin 0.3 mg/dL (0.2-1.0) 09/16/18 23:05 AST 74 U/L (15-37) H 09/16/18 23:05 ALT 64 U/L (12-78) 09/16/18 23:05 Alkaline Phosphatase 100 U/L (46-116) 09/16/18 23:05 Total Protein 6.8 g/dL (6.4-8.2) 09/16/18 23:05 Albumin 3.3 g/dL (3.4-5.0) L 09/16/18 23:05 25-OH Vitamin D Total 12.4 ng/ml (30-100) L 09/18/18 06:20 TSH 5.49 uIU/mL (0.358-3.74) H 09/17/18 06:35 Free T4 0.77 ng/dL (0.76-1.46) 09/17/18 06:35 Patient ABO/Rh A Positive 09/16/18 23:05 Antibody Screen Negative 09/16/18 23:05 Objective Narrative Objective Narrative: X-ray of the left hip both right after surgery and today after standing with PT demonstrates a well-positioned hip arthroplasty component. There is been no change in position or settling. There is no distal fracture extension.
--- NOTE | 2018-09-18 18:00 | PT.INIE ---
Date of service: 09/18/18 Time of Service: 06:48 PT Notes Inpatient Physical Therapy Evaluation Date: 09/18/2018 Referring Doctor: Guru Escobedo MD PT Orders: PT CONSULT: Status post left anterior GRISELDA. Walker at all times. Precautions: Fall. Standard. WBAT on L LE. No extreme ranges of hip extension on L. Patient Profile/Admitting Diagnosis: Patient is a 63-year-old female who presented to the ED on 09/16/2018 with left hip pain and significant mobility impairment after slipping on a wet step and landing on her left hip at home. Patient was diagnosed with left displaced and comminuted subcapital/femoral neck fracture status post left anterior GRISELDA on 09/17/2018 now on postoperative day 1. PMHX: Medical History Right lower lobe pulmonary nodule (Chronic) Hypothyroidism (acquired) (Chronic) Tobacco abuse (Chronic) Osteoarthritis (Chronic) COPD (chronic obstructive pulmonary disease) (Chronic) Closed left ankle fracture (Resolved) De Quervain's disease (radial styloid tenosynovitis) (Resolved) Right wrist fracture (Resolved) TIA (transient ischemic attack) (Resolved) Surgical History H/O left wrist surgery (Resolved) Colonoscopy - MAC (10/23/16) Social History/Home Situation: Patient lives in a mobile home with significant other. Thy have 3 steps to enter leading onto a porch. Patient was independent with all aspects of ADLs without the need for an assistive ambulatory device nor any adaptive equipment. Patient still drives. Current Functional Limitations: Need for physical assistance for all transfer and ambulation task performance using front wheeled walker due to pain and weakness Equipment Owned/DME: None Subjective: Patient is agreeable to a physical therapy consult and evaluation today. Patient reports being lightheaded and unsteady during ambulation activity with FWW. She does not feel safe going home today but is amenable to doing so tomorrow. She is agreeable to home health PT services to progress her mobility level and reduce fall risk at home. She reports pain on left hip that is aggravated with weight bearing. Objective: General Observation: Patient seen sitting on bedside chair. Mepilex Ag on left surgical incision. Minimal swelling noted around the area adjacent to surgical incision, continues to be tender to palpation. Minimal ecchymoses noted. Pain: Patient reports 4/10 on the right hip and thigh at rest, 6/10 with gait activity ROM: Right Upper Extremity: Shoulder Flexion WFL. Shoulder abduction WFL. Elbow flexion WFL. Wrist flexion WFL. Functional opening and closing of hand WFL. Left Upper Extremity: Shoulder Flexion WFL. Shoulder abduction WFL. Elbow flexion WFL. Wrist flexion WFL. Functional opening and closing of hand WFL. Right Lower Extremity: Hip flexion WFL. Hip abduction WFL. Knee flexion WFL. Ankle dorsiflexion WFL. Ankle plantarflexion WFL. Left Lower Extremity: Patient is able to advance right hip to about 20 to 30 degrees just prior to heel strike and demonstrates full left knee extension mid stance but with 6/10 pain. Patient reports being unsteady and shaky during each left mid stance. Patient is able to achieve push off on the left demonstrating about 10 to 20 degrees of knee extension from full heel strike position. Hip abduction is to 20 degrees before discomfort is reported. L knee flexion WFL. Ankle DF WFL. Strength: Right Upper Extremity: Shoulder flexors 5/5. Shoulder abductors 5/5. Elbow flexors 5/5. Elbow extensors 5/5. District Wildlife Manager strong. Left Upper Extremity: Shoulder flexors 5/5. Shoulder abductors 5/5. Elbow flexors 5/5. Elbow extensors 5/5. District Wildlife Manager strong. Right Lower Extremity: Hip flexors 5/5. Hip abductors 5/5. Knee flexors 5/5. Knee extensors 5/5. Ankle dorsiflexors 5/5. Ankle plantarflexors 5/5. Left Lower Extremity:Hip flexors 3-/5. Hip abductors 3-/5. Knee flexors 3-/5. Knee extensors 4/5. Ankle dorsiflexors 5/5. Ankle plantarflexors 5/5. Sensation: Intact as to pain and pressure on bilateral lower extremities. Bed Mobility/Transfers: Sit to supine minimal assist to left LE due to weakness and fatigue Sit to stand minimal assist using both hands for support with FWW Stand to sit minimal assist using both hands for support with FWW Bed to chair minimal assist using both hands for support with FWW Chair to bed minimal assist using both hands for support with FWW Gait: Patient is able to tolerate in room levels ambulation of 8 steps forward and 8 steps backward with WBAT on left using F WW using a step to gait pattern with notable decrease in gait velocity, step height on the left and push off on left with report of 6/10 pain on heel strike. Verbal cues given for safe gait pattern, walker management, directional changes and deep breathing activities to reduce pain and anxiety. Balance: Static Sitting: Good Dynamic Sitting: Good Static Standing: Fair Dynamic Standing: Fair Special Tests: Mobility Limitations Standardized Measure [facility] AM-PAC 6 clicks Basic Mobility Inpatient Short Form: Raw Score: 13 CMS Score: 65% deficit Informed Consent/Education: Patient instructed in purpose of PT consult and plan of care. Patient was given the choice of going home today or tomorrow but preferred to go for tomorrow as she stated she felt unsafe and unstable if she goes home today after performing in room ambulation. Assessment: 63-year-old female who sustained a displaced and comminuted left subcapital/femoral neck fracture from a fall on 09/16/2018 status post left anterior GRISELDA. Patient presents with clinical signs and symptoms consistent with current/admitting diagnoses and postoperative status that have resulted to mobility limitations, gait instability, generalized weakness, and impairment of motor control as demonstrated by the following impairment level findings: 1. Decreased strength to L LE major muscle groups 2. Impaired sitting/standing balance 3. Impaired activity tolerance 4. Limitation of joint range of motion in left hip Impairments are contributing to the following functional limitations: 1. Dependent bed mobility skills 2. Increased dependence with transfers 3. Inability to safely ambulate without assistive device and physical assistance 4. Increase completion time for mobility ADL performance 5. Increased fall risk 6. Inability to negotiate steps alone safely Patient is assessed as a 15200 moderate complexity based on the following: History: 63-year-old female with premorbid independent level who is status post left anterior GRISELDA with past medical history as listed above influencing rate of postoperative recovery Examination: Demonstrable impairment in strength, balance, and range of motion with underlying impairments and functional limitations as documented above Presentation:Evolving Decision Makin moderate complexity Goals: Goals X1 week 1. Supine-Sit independent 2. Sit-Supine independent 3. Sit-Stand independent 4. Stand-Sit independent 5. Bed-Chair independent 6. Chair-Bed independent 7. Independent gait on level surface with use of least restrictive device for at least 300 feet without report of pain nor dyspnea 8. Independent stair negotiation while holding onto bilateral rails for at least 5 steps without report of pain nor dyspnea 9. Independent with home exercise program 10. Good static and dynamic standing balance/tolerance Plan of Care/Treatment Plan: 1-2x/day, 7 days/week x 1 week. Plan of care has been reviewed with the [facility] providing the service under Physical Therapy direction. Initiate Physical Therapy intervention for strengthening, bed mobility, transfers, gait, stairs, balance training, use of assistive device. DISCHARGE RECOMMENDATIONS: Patient will benefit from home health PT services in order to progress mobility level using least restrictive assistive ambulatory device/using no device, assess home safety, identify additional equipment needs, and establish a functional maintenance program that will increase ability of patient to remain at home. TREATMENT CODE/TIME: 48568 for 30 minutes, 38864 for 11 minutes beginning at 9:45 AM. Thank you very much for this referral. Maggie Strickland PT, DPT, CLT [facility]
--- NOTE | 2018-09-18 19:30 | NUR.NOTE ---
Nursing Note:transfered from ICU to room 212 via WC. Well tolerated by patient. oriented to room and call vila system. See shift assessment.
--- NOTE | 2018-09-18 20:23 | PT.INTREAT ---
Date of service: 09/18/18 Time of Service: 20:24 PT Notes Inpatient Physical Therapy Treatment Note [facility] Date: 09/18/18 PRECAUTIONS: WBAT on L, Fall SUBJECTIVE: Corina states that she feels pretty good this afternoon. She would like to return home tomorrow. OBJECTIVE: PAIN: Patient c/o minimal L LE pain with gait training and ther ex. BED MOBILITY/TRANSFERS Supine-sit: I with HOB flat Sit-stand: SBA Stand-sit: SBA GAIT Assistive Device: FWW Weight bearing: WBAT L Assist: CGA Distance: 100' Deviation: Knee buckling x1 with Mod A for recovery THEREX: Patient completed a LE strengthening and stabilization program, in a supine position, as per flow sheet. STAIRS: Up/down 3x4 and 2x6 using B rails and a step-to pattern with supervision. ASSESSMENT: Patient tolerated session with minimal c/o L hip discomfort with ther ex and gait training. She was able to progress gait distance with FWW support and CGA. Patient would benefit from continued gait and transfer training, as well as strengthening for improved mobility and activity tolerance. PLAN: Continue with PT's POC TREATMENT CODE/TIME: 30 minutes; 60192, [id number]
[2018-09-18] MEDS: Acetaminophen 325 MG TAB 650 MG PO (20:27)
[2018-09-18] MEDS: Nicotine 14 MG/24 HR PATCH TD (22:38)
[2018-09-19] MEDS: FAMOTIDINE 20 MG/50 ML BAG 200 MG IVPB (01:59)
[2018-09-19 03:38] VITALS: BP 141/77; PULSE 99; RESP 16; TEMP 37.3; O2SAT 99
[2018-09-19] MEDS: Normal Saline 1,000 ML 125 ML IV (04:02)
[2018-09-19] MEDS: Levothyroxine 25 MCG TAB PO (05:34)
[2018-09-19] MEDS: Alendronate 70 MG TAB PO (06:09)
[2018-09-19 08:00] VITALS: BP 151/89; PULSE 100; RESP 18; TEMP 37.1; O2SAT 97
[2018-09-19] MEDS: Tiotropium Bromide-Respimat 10 PUFF INH 2 PUFF IH (08:14)
[2018-09-19] MEDS: Thiamine 100 MG TAB PO (08:37)
[2018-09-19] MEDS: Calcium Citrate 950 MG TAB PO (08:37)
[2018-09-19] MEDS: Folic Acid 1 MG TAB PO (08:37)
[2018-09-19] MEDS: Aspirin E.C. 81 MG TABEC PO (08:37)
[2018-09-19] MEDS: Docusate Sodium 100 MG CAP PO (08:37)
[2018-09-19] MEDS: Celecoxib 200 MG CAP PO (08:37)
[2018-09-19] MEDS: Multivitamin TAB 1 TAB PO (08:37)
[2018-09-19] MEDS: Cholecalciferol (Vitamin D3) 1,000 UNIT TAB 2000 UNITS PO (08:37)
[2018-09-19 09:09] LABS: Abs Immature Grans 0.03 k/cumm (0.0-0.09); Absolute Basophil Count 0.03 k/cumm (0.0-0.2); Absolute Eosinophil Count 0.06 k/cumm (0.0-0.7); Absolute Lymphocyte Count 1.81 k/cumm (1.2-3.4); Absolute Monocyte Count 0.29 k/cumm (0.11-0.7); Basophils % 0.5; Eosinophils % 0.9; HCT 26.3 % (36.0-46.0); HGB 8.7 g/dL (12.0-15.5); Immature Grans % 0.5; Lymphocytes % 28.1; Mean Corp. HGB Concentration 33.1 g/dL (32.0-36.0); Mean Corpuscular Hemoglobin 34.9 pg (27.0-33.0); Mean Corpuscular Volume 105.6 fL (80-95); Monocytes % 4.5; Neutrophils % 65.5; RBC 2.49 m/cumm (4.00-5.20); RBC Distribution Width 12.5 % (11.7-14.6); White Blood Cell Count 6.45 k/cumm (4.4-10.8)
[2018-09-19 09:17] LABS: Absolute Neutrophil Count 4.22 k/cumm (1.2-6.7)
[2018-09-19 09:19] LABS: Anion Gap 11.5 mmol/L (3-11); BUN 3 mg/dL (7-18); CO2 23.5 mmol/L (21.0-32.0); CREATININE 0.63 mg/dL (0.55-1.02); Calcium 8.3 mg/dL (8.5-10.1); Chloride 104 mmol/L (98-107); Glucose 113 mg/dL (70-100); Magnesium 1.4 mg/dL (1.8-2.4); Potassium 3.2 mmol/L (3.5-5.1); Sodium 139 mmol/L (136-145)
[2018-09-19 09:27] LABS: Platelet Count 80 x1000/uL (130-400)
[2018-09-19 09:28] LABS: Macrocytosis 1+
[2018-09-19] MEDS: Potassium Chloride 20 MEQ TABCR 40 MEQ PO (10:28)
[2018-09-19] MEDS: MAGNESIUM SULFATE 4 GM/100 ML BAG IVPB (10:51)
--- NOTE | 2018-09-19 11:11 | PT.INTREAT ---
Date of service: 09/19/18 Time of Service: 11:11 PT Notes Inpatient Physical Therapy Treatment Note [facility] Date: 09/19/18 PRECAUTIONS: Fall, WBAT on L SUBJECTIVE: Corina states that she is feeling much better today, and is looking forward to going home. OBJECTIVE: PAIN: No c/o pain BED MOBILITY/TRANSFERS Supine-sit: I Sit-supine: I with HOB flat Sit-stand: S Stand-sit: S GAIT Assistive Device: FWW Weight bearing: WBAT on L Assist: S Distance: 200' THEREX: Patient completed a LE strengthening program, as per flow sheet. STAIRS: Up/down 3x4 and 2x6 utilizing B rails and a step-to pattern with supervision TOILETING: Patient toileted independently. ASSESSMENT: Patient tolerated session well without complaint. She was able to tolerate a progression in gait distance with FWW support and supervision. She would benefit from continued gait and transfer training as well as strengthening for improved mobility. PLAN: As per primary PT TREATMENT CODE/TIME: 25 minutes; 48221, [id number]
--- NOTE | 2018-09-19 11:58 | DSE_ITS ---
Date of service: 09/19/18 Time of Service: 11:58 DS: Diagnosis Discharge Diagnosis (1) Fracture of femoral neck, left, closed: Status: Acute Discharge Plan Disposition Patient Disposition: HOME Condition: Improving Discharge Details Reason For Visit: LEFT FEMORAL FRACTURE Admit Date/Time: 09/16/18 22:23 Admit Provider: Pietro Perkins Attending Provider: Pietro Perkins Primary Care Provider: Abhijeet Castillo Hospital Course Hospital Course: 63-year-old female with a past medical history of osteoarthritis, COPD, hypothyroidism, GERD presents emergency department after mechanical fall landing on her left side with immediate left-sided hip pain and inability to ambulate. Evaluation in the ER review revealed an impacted left femoral neck fracture. Patient was admitted for surgical repair of the same. Dr. Soares, orthopedic surgeon refrigeration supervisor, was notified by the ER personnel. Patient denies any syncope, palpitations, chest pain or pressure. She had a mechanical fall on a wet doorstep landing on her left side. She has had no antecedent episodes of chest pain/pressure, unusual dyspnea. Her EKG demonstrated NSR at [address]-T changes. She has low voltage across all her leads consistent w/ COPD. Her CXR demonstrates a chronic RLL lung nodule that is 16 mm and slowly has grown over the years. Otherwise no infiltrates. I think that the lung nodule can be followed as an outpatient and clinically she is acceptable for ORIF of her hip fracture. During her hospital course she had repair of the left femoral fracture. She has been doing well, ambulating with a walker. Her vitamin D was low so she was started on vitamin D with calcium, she can follow up as an outpatient. She did have some pain to be expected. She will need to follow up with ortho as planned and her PCP in 1-2 weeks. She denies chest pain, shortness of breath, nausea, vomiting, diarrhea. 1) Fracture of femoral neck, left, closed: s/p total arthroplasty 09/18/18. Continue bowel regimen, vitamin D, calcium repletion; written for bisphosphonate. Qualifiers: Encounter type: initial encounter Qualified Code(s): S72.002A - Fracture of unspecified part of neck of left femur, initial encounter for closed fracture (2) COPD (chronic obstructive pulmonary disease): not in acute exacerbation. continue prn inhalers (3) Hypothyroidism (acquired): TSH slightly high - patient was not taking her medications prior to discharge - continue synthroid 25 mcg daily, resumed on this admission (4) Right lower lobe pulmonary nodule: F/u with PCP/pulmonary (5) Discharge planning issues: discharge home tomorrow (6) DVT prophylaxis: Start asa Home Meds and New Rx's Prescriptions: New alendronate 70 mg Tablet 70 mg PO Sa@0700 Qty: 4 RF: 3 docusate sodium [Colace] 100 mg Capsule 100 mg PO BID Qty: 0 RF: 0 calcium citrate [Calcitrate] 200 mg (950 mg) Tablet 950 mg PO BID Qty: 60 RF: 3 cholecalciferol (vitamin D3) 1,000 unit Tablet 1,000 units PO DAILY Qty: 30 RF: 3 acetaminophen 500 mg tablet 1,000 mg PO Q8H PRN (Reason: pain) Qty: 90 RF: 3 oxycodone 5 mg tablet 5 mg PO Q6H PRN PRNQty: 12 RF: 0 Continued Serevent Diskus 1 EACH blister with device 1 puff BID RF: 0 albuterol sulfate 8.5 GM HFA aerosol inhaler 2 puff PRN PRNRF: 0 Spiriva with HandiHaler 18 MCG capsule, w/inhalation device 1 puff DAILY RF: 0 levothyroxine 25 MCG tablet 25 mcg PO DAILY RF: 0 Dexilant 30 MG capsule,biphase delayed releas 30 mg PO DAILY RF: 0 naproxen 500 MG tablet 1 tab PO BID Qty: 60 RF: 3 Changed aspirin [Aspir-Low] 81 MG tablet,delayed release (DR/EC) 1 tab PO BID Qty: 60 RF: 0 Discharge Instructions Instructions: Hip Fracture (GEN), Vitamin D Deficiency (GEN) Additional Instructions: Dr. Escobedo?s Total Hip Discharge Instructions Activity: The most important activity is to walk. You should try to take short walks a few times a day. You have no restrictions on movement or positioning, but do not try to force what you do. You should use the walker at all times untill instructed otherwise by Dr. Escobedo. You will find some stiffness and weakness with hip flexion (lifting your knee). Do not try to strengthen this too early, continue to practice walking and stairs and this will come. - Physical therapy can be helpful to help return you to a normal gait and improve your flexibility and strength. This can start around 2 weeks. For some patients, it?s not necessary. Usually this is determined at the time of discharge or at the first post-operative visit. - You should wear the NELL hose on both legs for 4 weeks. Dressing: Keep the surgical dressing in place for at least one week. After the first week it may be removed and replace with light gauze and tape or nothing. It may get wet after 3 days but avoid soaking the dressing. If it gets wet, just lightly pat dry. It is important to always keep some gauze between skin folds, especially when you are sitting. Spend some time with the wound exposed when you are lying flat as the incision does wrinkle onto itself. Medications: - You should take Tylenol and an anti-inflammatory Naproxen as your primary pain control medications - You have been prescribed a stronger pain medication Oxycodone for breakthrough pain, take as needed as prescribed. - You should continue to take a stomach acid reduction agent, Dexilant, to help reduce stomach acid and reflux. - You will be taking Aspirin 81mg twice a day for DVT prevention unless instructed otherwise. - If you have constipation you should take Colace or Miralax (both [id number]). It takes most people 3-4 days to have a bowel movement. - To treat your osteoporosis, you have been prescribed Calcium, Vitamin D, and Fosamax. The Fosamax you will take every week. Follow-up: 2 weeks Referrals: Guru Escobedo MD [ [facility] STAFF PHYSICIAN] - Activity:: Activity as Tolerated Equipment/Supplies:: Walker Diet:: As Tolerated Discharge Orders Discharge Orders: Discharge Order (Routine); Ordered 09/19/18 Ordered By: Maria De Jesus Villalba Exam Narrative Exam Narrative: General: Very pleasant middle-aged female, A&Ox3, si tting at the edge of the bed. HEENT: EOMI, MMM Heart: RRR, tachycardic, no m/r/g Lungs: CTAB GI: abdomen is soft, nontender, nondistended Extremities: no e/c/c; 2+ pedal pulses B DS: Data Vitals/I&O Vitals and I&O: Vital Signs Temperature 37.3 C 09/19/18 03:38 Temperature Source Tympanic 09/19/18 03:38 Pulse 99 H 09/19/18 03:38 Pulse Rhythm Regular 09/19/18 08:10 Pulse Strength Normal 09/17/18 22:16 Pulse 130 H 09/18/18 08:40 Respiratory Rate 16 09/19/18 03:38 Respiratory Effort 09/19/18 08:10 Respiratory Depth Normal 09/19/18 08:10 Respiratory Pattern Normal 09/19/18 08:10 Blood Pressure 141/77 H 09/19/18 03:38 Blood Pressure Mean 101 09/18/18 08:37 Blood Pressure Position Sitting 09/16/18 20:31 Pulse Oximetry 99 09/19/18 03:38 Oxygen Delivery Method Room Air 09/19/18 03:38 Oxygen Flow Rate 0 09/19/18 03:38 Pain Level 2 09/18/18 23:48 Comment 09/17/18 22:10 Intake & Output 09/18/18 09/18/18 09/19/18 11:59 23:59 11:59 Intake Total 1627.083 / 4167.083 2540 / 4167.083 1697.917 / 1697.917 Output Total 285 / 1675 1390 / 1675 Balance 1342.083 / 2492.083 1150 / 2492.083 1697.917 / 1697.917 Intake: IV 1027.083 / 3127.083 2100 / 3127.083 997.917 / 997.917 Oral 600 / 1040 440 / 1040 700 / 700 Output: Urine 285 / 1235 950 / 1235 Stool 440 / 440 Other: Urine Color Yellow Yellow Urine Appearance Clear Clear Clear Urine Odor None Stool Size Moderate Stool Characteristics Liquid Voiding Methods Toilet Toilet Completed studies during hospitalization [Text1]: Exam(s) a RAD:XR hip LT 1V SYMPTOMS/DIAGNOSIS: S/P MOBILIZATION AFTER TOTAL HIP ARTHROPLASTY FOR FRACTURE AP VIEW OF THE LEFT HIP: Comparison is made with August,. There has been no change in the alignment of the left hip prosthesis. There is no evidence of an acute fracture. Some residual postsurgical air remains in the soft tissues. Labs on day of discharge: Labs from last 24 hours 09/19/18 09/19/18 09/18/18 08:45 08:45 06:20 WBC 6.45 D RBC 2.49 L Hgb 8.7 L Hct 26.3 L MCV 105.6 H MCH 34.9 H MCHC 33.1 RDW 12.5 Plt Count 80 L MPV 9.0 Immature Gran % 0.5 Neutrophils % 65.5 Lymphocytes % 28.1 Monocytes % 4.5 Eosinophils % 0.9 Basophils % 0.5 Absolute Neutrophils 4.22 Absolute Lymphocytes 1.81 Absolute Monocytes 0.29 Absolute Eosinophils 0.06 Absolute Basophils 0.03 Macrocytosis 1+ Sodium 139 Potassium 3.2 L Chloride 104 Carbon Dioxide 23.5 Anion Gap 11.5 H BUN 3 L Creatinine 0.63 Estimated GFR/1.73 m2 >= 60.00 Glucose 113 H Calcium 8.3 L Magnesium 1.4 L 25-OH Vitamin D Total 12.4 L [facility] Medical History Right lower lobe pulmonary nodule (Chronic) Hypothyroidism (acquired) (Chronic) Tobacco abuse (Chronic) Osteoarthritis (Chronic) COPD (chronic obstructive pulmonary disease) (Chronic) Closed left ankle fracture (Resolved) De Quervain's disease (radial styloid tenosynovitis) (Resolved) Right wrist fracture (Resolved) TIA (transient ischemic attack) (Resolved) Surgical History H/O left wrist surgery (Resolved) Colonoscopy - MAC (10/23/16) Family History Mother No problems noted. Other Colon cancer Social History Smoking/Tobacco Use Status: Current every day Tobacco Type: cigarettes Alcohol Intake: current Alcohol Intake frequency: 0-2 drinks per day Alcohol type: beer Drug use: Never Substance use type: does not use Do you feel safe at home: Yes Do you feel safe in your relationship?: Yes
--- NOTE | 2018-09-19 15:16 | PDOC.CMDIS ---
LACE Index Scoring Tool - Questions: Length of Stay (in days): 3 Acuity (Admit via E.D.?): Yes Comorbidities: Chronic Pulmonary Disease Care Management Discharge Reason for Hospitalization: Left Fracture of femoral neck
--- NOTE | 2018-09-19 15:44 | PDOC.CMDIS ---
LACE Index Scoring Tool - Questions: Length of Stay (in days): 3 Acuity (Admit via E.D.?): Yes Comorbidities: Chronic Pulmonary Disease E.D. Visits: 1 - Answers: Total Score: 9 Risk of Readmission: Low Risk Care Management Discharge Reason for Hospitalization: Left Fracture of femoral neck Discharge Plan: Corina will be discharged home when medically ready per provider. She will follow up with her PCP as well as Dr. Escobedo in two weeks. She will be evaluated for VNA needs at that time. CM filled prescription for FWW per Corina's DME of choice; [facility]. She will transport via private vehicle with her sister at time of discharge. Patient/Family Education Needs: Review of discharge instructions, DME providers, insurance limitations, discussed self care needs upon discharge [facility]. Services Needed at Discharge: DME Agency
--- NOTE | 2018-09-19 15:48 | CMDISCH_ITS ---
LACE Index Scoring Tool - Questions: Length of Stay (in days): 3 Acuity (Admit via E.D.?): Yes Comorbidities: Chronic Pulmonary Disease E.D. Visits: 1 - Answers: Total Score: 9 Risk of Readmission: Low Risk Care Management Discharge Reason for Hospitalization: Left Fracture of femoral neck Discharge Plan: Corina will be discharged home when medically ready per provider. She will follow up with her PCP as well as Dr. Escobedo in two weeks. She will be evaluated for VNA needs at that time. CM filled prescription for FWW per Corina's DME of choice; [facility]. She will transport via private vehicle with her sister at time of discharge. Patient/Family Education Needs: Review of discharge instructions, DME providers, insurance limitations, discussed self care needs upon discharge [facility]. Services Needed at Discharge: DME Agency
--- NOTE | 2018-09-21 16:26 | PT.INDS ---
Date of service: 09/21/18 PT Notes Inpatient Physical Therapy Discharge Summary Dates: 09/21/2018 Dates of Service: 09/18/2018 through 09/19/2018 This is a clinical summary of care provided on the duration of dates listed above. No charge was made in the completion of this documentation. Referring Doctor: Guru Escobedo MD PT Orders: PT CONSULT: Status post left anterior GRISELDA. Walker at all times. Precautions: Fall. Standard. WBAT on L LE. No extreme ranges of hip extension on L. Patient Profile/Admitting Diagnosis: Patient is a 63-year-old female who presented to the ED on 09/16/2018 with left hip pain and significant mobility impairment after slipping on a wet step and landing on her left hip at home. Patient was diagnosed with left displaced and comminuted subcapital/femoral neck fracture status post left anterior GRISELDA on 09/17/2018 now on postoperative day 1. PMHX: Medical History Right lower lobe pulmonary nodule (Chronic) Hypothyroidism (acquired) (Chronic) Tobacco abuse (Chronic) Osteoarthritis (Chronic) COPD (chronic obstructive pulmonary disease) (Chronic) Closed left ankle fracture (Resolved) De Quervain's disease (radial styloid tenosynovitis) (Resolved) Right wrist fracture (Resolved) TIA (transient ischemic attack) (Resolved) Surgical History H/O left wrist surgery (Resolved) Colonoscopy - MAC (10/23/16) Social History/Home Situation: Patient lives in a mobile home with significant other. Thy have 3 steps to enter leading onto a porch. Patient was independent with all aspects of ADLs without the need for an assistive ambulatory device nor any adaptive equipment. Patient still drives. Current Functional Limitations: Need for physical assistance for all transfer and ambulation task performance using front wheeled walker due to pain and weakness Equipment Owned/DME: None Subjective: NT. Please refer to [employer] [employer] notes as of 09/19/2018. Objective: Please refer to [employer] notes as of 09/19/2018. General Observation: NT. Please refer to [employer] notes as of 09/19/2018. Pain: NT. Please refer to [employer] notes as of 09/19/2018. ROM: Right Upper Extremity: Shoulder Flexion WFL. Shoulder abduction WFL. Elbow flexion WFL. Wrist flexion WFL. Functional opening and closing of hand WFL. Left Upper Extremity: Shoulder Flexion WFL. Shoulder abduction WFL. Elbow flexion WFL. Wrist flexion WFL. Functional opening and closing of hand WFL. Right Lower Extremity: Hip flexion WFL. Hip abduction WFL. Knee flexion WFL. Ankle dorsiflexion WFL. Ankle plantarflexion WFL. Left Lower Extremity: Patient is able to advance right hip to about 20 to 30 degrees just prior to heel strike and demonstrates full left knee extension mid stance but with 6/10 pain. Patient reports being unsteady and shaky during each left mid stance. Patient is able to achieve push off on the left demonstrating about 10 to 20 degrees of knee extension from full heel strike position. Hip abduction is to 20 degrees before discomfort is reported. L knee flexion WFL. Ankle DF WFL. Strength: Right Upper Extremity: Shoulder flexors 5/5. Shoulder abductors 5/5. Elbow flexors 5/5. Elbow extensors 5/5. Speech Pathologist strong. Left Upper Extremity: Shoulder flexors 5/5. Shoulder abductors 5/5. Elbow flexors 5/5. Elbow extensors 5/5. Speech Pathologist strong. Right Lower Extremity: Hip flexors 5/5. Hip abductors 5/5. Knee flexors 5/5. Knee extensors 5/5. Ankle dorsiflexors 5/5. Ankle plantarflexors 5/5. Left Lower Extremity:Hip flexors 3-/5. Hip abductors 3-/5. Knee flexors 3-/5. Knee extensors 4/5. Ankle dorsiflexors 5/5. Ankle plantarflexors 5/5. Sensation: Intact as to pain and pressure on bilateral lower extremities. Bed Mobility/Transfers: Sit to supine minimal assist to left LE due to weakness and fatigue Sit to stand minimal assist using both hands for support with FWW Stand to sit minimal assist using both hands for support with FWW Bed to chair minimal assist using both hands for support with FWW Chair to bed minimal assist using both hands for support with FWW Gait: Per [facility] documentation on 09/19/2018 in the morning, patient was able to tolerate 200 feet of level surface ambulation with WBAT on left using F WW with supervision only from [employer]. Patient was also able to complete three 4 inch steps and two 6 inch steps while holding onto bilateral rails using step to gait pattern with only supervision assist. Balance: Static Sitting: Good Dynamic Sitting: Good Static Standing: Fair Dynamic Standing: Fair Assessment: 63-year-old female who sustained a displaced and comminuted left subcapital/femoral neck fracture from a fall on 09/16/2018 status post left anterior GRISELDA. Patient presents with clinical signs and symptoms consistent with current/admitting diagnoses and postoperative status that have resulted to mobility limitations, gait instability, generalized weakness, and impairment of motor control as demonstrated by the following impairment level findings: 1. Decreased strength to L LE major muscle groups 2. Impaired sitting/standing balance 3. Impaired activity tolerance 4. Limitation of joint range of motion in left hip Impairments are contributing to the following functional limitations: 1. Dependent bed mobility skills 2. Increased dependence with transfers 3. Inability to safely ambulate without assistive device and physical assistance 4. Increase completion time for mobility ADL performance 5. Increased fall risk 6. Inability to negotiate steps alone safely Patient is assessed as a [id number] moderate complexity based on the following: History: 63-year-old female with premorbid independent level who is status post left anterior GRISELDA with past medical history as listed above influencing rate of postoperative recovery Examination: Demonstrable impairment in strength, balance, and range of motion with underlying impairments and functional limitations as documented above Presentation:Evolving Decision Makin moderate complexity Goals: Goals X1 week 1. Supine-Sit independent MET 2. Sit-Supine independent MET 3. Sit-Stand independent NOT MET 4. Stand-Sit independent NOT MET 5. Bed-Chair independent NOT MET 6. Chair-Bed independent NOT MET 7. Independent gait on level surface with use of least restrictive device for at least 300 feet without report of pain nor dyspnea NOT MET 8. Independent stair negotiation while holding onto bilateral rails for at least 5 steps without report of pain nor dyspnea NOT MET 9. Independent with home exercise program NOT MET 10. Good static and dynamic standing balance/tolerance NOT MET DISCHARGE RECOMMENDATIONS: Patient will benefit from home health PT services in order to progress mobility level using least restrictive assistive ambulatory device/using no device, assess home safety, identify additional equipment needs, and establish a functional maintenance program that will increase ability of patient to remain at home. TREATMENT CODE/TIME: AL. Thank you very much for this referral. Maggie Strickland PT, DPT, CLT [facility]
--- NOTE | 2018-09-21 16:30 | INDS_ITS ---
Date of service: 09/21/18 PT Notes Inpatient Physical Therapy Discharge Summary Dates: 09/21/2018 Dates of Service: 09/18/2018 through 09/19/2018 This is a clinical summary of care provided on the duration of dates listed above. No charge was made in the completion of this documentation. Referring Doctor: Guru Escobedo MD PT Orders: PT CONSULT: Status post left anterior GRISELDA. Walker at all times. Precautions: Fall. Standard. WBAT on L LE. No extreme ranges of hip extension on L. Patient Profile/Admitting Diagnosis: Patient is a 63-year-old female who presented to the ED on 09/16/2018 with left hip pain and significant mobility impairment after slipping on a wet step and landing on her left hip at home. Patient was diagnosed with left displaced and comminuted subcapital/femoral neck fracture status post left anterior GRISELDA on 09/17/2018 now on postoperative day 1. PMHX: Medical History Right lower lobe pulmonary nodule (Chronic) Hypothyroidism (acquired) (Chronic) Tobacco abuse (Chronic) Osteoarthritis (Chronic) COPD (chronic obstructive pulmonary disease) (Chronic) Closed left ankle fracture (Resolved) De Quervain's disease (radial styloid tenosynovitis) (Resolved) Right wrist fracture (Resolved) TIA (transient ischemic attack) (Resolved) Surgical History H/O left wrist surgery (Resolved) Colonoscopy - MAC (10/23/16) Social History/Home Situation: Patient lives in a mobile home with significant other. Thy have 3 steps to enter leading onto a porch. Patient was independent with all aspects of ADLs without the need for an assistive ambulatory device nor any adaptive equipment. Patient still drives. Current Functional Limitations: Need for physical assistance for all transfer and ambulation task performance using front wheeled walker due to pain and weakness Equipment Owned/DME: None Subjective: NT. Please refer to TELECOMM[employer]ICATIONS CLERK notes as of 09/19/2018. Objective: Please refer to [employer] notes as of 09/19/2018. General Observation: NT. Please refer to [employer]COMM[employer] CL[employer] notes as of 09/19/2018. Pain: NT. Please refer to TELECOMM[employer]ICATIONS CL[employer] notes as of 09/19/2018. ROM: Right Upper Extremity: Shoulder Flexion WFL. Shoulder abduction WFL. Elbow flexion WFL. Wrist flexion WFL. Functional opening and closing of hand WFL. Left Upper Extremity: Shoulder Flexion WFL. Shoulder abduction WFL. Elbow flexion WFL. Wrist flexion WFL. Functional opening and closing of hand WFL. Right Lower Extremity: Hip flexion WFL. Hip abduction WFL. Knee flexion WFL. Ankle dorsiflexion WFL. Ankle plantarflexion WFL. Left Lower Extremity: Patient is able to advance right hip to about 20 to 30 degrees just prior to heel strike and demonstrates full left knee extension mid stance but with 6/10 pain. Patient reports being unsteady and shaky during each left mid stance. Patient is able to achieve push off on the left demonstrating about 10 to 20 degrees of knee extension from full heel strike position. Hip abduction is to 20 degrees before discomfort is reported. L knee flexion WFL. Ankle DF WFL. Strength: Right Upper Extremity: Shoulder flexors 5/5. Shoulder abductors 5/5. Elbow flexors 5/5. Elbow extensors 5/5. Lei Maker strong. Left Upper Extremity: Shoulder flexors 5/5. Shoulder abductors 5/5. Elbow flexors 5/5. Elbow extensors 5/5. Lei Maker strong. Right Lower Extremity: Hip flexors 5/5. Hip abductors 5/5. Knee flexors 5/5. Knee extensors 5/5. Ankle dorsiflexors 5/5. Ankle plantarflexors 5/5. Left Lower Extremity:Hip flexors 3-/5. Hip abductors 3-/5. Knee flexors 3-/5. Knee extensors 4/5. Ankle dorsiflexors 5/5. Ankle plantarflexors 5/5. Sensation: Intact as to pain and pressure on bilateral lower extremities. Bed Mobility/Transfers: Sit to supine minimal assist to left LE due to weakness and fatigue Sit to stand minimal assist using both hands for support with FWW Stand to sit minimal assist using both hands for support with FWW Bed to chair minimal assist using both hands for support with FWW Chair to bed minimal assist using both hands for support with FWW Gait: Per TELECOMMUNICATIONS CLERK documentation on 09/19/2018 in the morning, patient was able to tolerate 200 feet of level surface ambulation with WBAT on left using F WW with supervision only from TELECOMMUNICATIONS CLERK. Patient was also able to complete three 4 inch steps and two 6 inch steps while holding onto bilateral rails using step to gait pattern with only supervision assist. Balance: Static Sitting: Good Dynamic Sitting: Good Static Standing: Fair Dynamic Standing: Fair Assessment: 63-year-old female who sustained a displaced and comminuted left subcapital/femoral neck fracture from a fall on 09/16/2018 status post left anterior GRISELDA. Patient presents with clinical signs and symptoms consistent with current/admitting diagnoses and postoperative status that have resulted to mobility limitations, gait instability, generalized weakness, and impairment of motor control as demonstrated by the following impairment level findings: 1. Decreased strength to L LE major muscle groups 2. Impaired sitting/standing balance 3. Impaired activity tolerance 4. Limitation of joint range of motion in left hip Impairments are contributing to the following functional limitations: 1. Dependent bed mobility skills 2. Increased dependence with transfers 3. Inability to safely ambulate without assistive device and physical assistance 4. Increase completion time for mobility ADL performance 5. Increased fall risk 6. Inability to negotiate steps alone safely Patient is assessed as a 66717 moderate complexity based on the following: History: 63-year-old female with premorbid independent level who is status post left anterior GRISELDA with past medical history as listed above influencing rate of postoperative recovery Examination: Demonstrable impairment in strength, balance, and range of motion with underlying impairments and functional limitations as documented above Presentation:Evolving Decision Makin moderate complexity Goals: Goals X1 week 1. Supine-Sit independent MET 2. Sit-Supine independent MET 3. Sit-Stand independent NOT MET 4. Stand-Sit independent NOT MET 5. Bed-Chair independent NOT MET 6. Chair-Bed independent NOT MET 7. Independent gait on level surface with use of least restrictive device for at least 300 feet without report of pain nor dyspnea NOT MET 8. Independent stair negotiation while holding onto bilateral rails for at least 5 steps without report of pain nor dyspnea NOT MET 9. Independent with home exercise program NOT MET 10. Good static and dynamic standing balance/tolerance NOT MET DISCHARGE RECOMMENDATIONS: Patient will benefit from home health PT services in order to progress mobility level using least restrictive assistive ambulatory device/using no device, assess home safety, identify additional equipment needs, and establish a functional maintenance program that will increase ability of patient to remain at home. TREATMENT CODE/TIME: AR. Thank you very much for this referral. Maggie Strickland PT, DPT, CLT [facility]
== END 2018-09-19 15:23 | disposition home or self-care (01) | DRG 470 ==
LOC: ER 22:50 → ICU 23:10 → MS 09-18 18:06
PROVIDERS: Internal Medicine; Student in an Organized Health Care Education/Training Program; Admitting Provider Internal Medicine; Emergency Provider Physician Assistant; PCP Internal Medicine; Visit Provider Internal Medicine
PROC: 0SRB04A Replacement of Left Hip Joint with Ceramic on Polyethylene Synthetic Substitute, Uncemented, Open Approach (ICD-10-PCS; CPT 27130; principal; 2018-09-17 15:00)
DX: S72.012A Unspecified intracapsular fracture of left femur, initial encounter for closed fracture (principal); W10.8XXA Fall (on) (from) other stairs and steps, initial encounter; Z96.642 Presence of left artificial hip joint; J44.9 Chronic obstructive pulmonary disease, unspecified; E03.9 Hypothyroidism, unspecified; K21.9 Gastro-esophageal reflux disease without esophagitis; R91.1 Solitary pulmonary nodule; F17.210 Nicotine dependence, cigarettes, uncomplicated; G89.18 Other acute postprocedural pain; M83.9 Adult osteomalacia, unspecified; M81.0 Age-related osteoporosis without current pathological fracture; F10.10 Alcohol abuse, uncomplicated; I44.0 Atrioventricular block, first degree
CPT/HCPCS: 27130; 36415; 76942; 80048; 80053; 82306; 86850; 86900; 86901; 93005; 94640; 96374; 97110; 97162; 97530; 99222; 99223; 99232; 99239; 99253; 99285; NC; 71045; 72170; 73501; 73502; 73700; 83735; 84439; 84443; 85025; 85610; 93010; J0690; J1885; J2250; J2405; J3010; J3475

== ENCOUNTER → 2018-09-17 16:00 | Outpatient (BNVA) | payer MEDICARE, MEDICAID, SELFPAY | PROVIDERS: PCP Internal Medicine; Referring Provider Internal Medicine; Visit Provider Student in an Organized Health Care Education/Training Program | DX: R69 Illness, unspecified (principal) ==

== ENCOUNTER 2018-09-30 13:37 | Outpatient (CLI) | payer MEDICARE, MEDICAID, SELFPAY ==
--- NOTE | 2018-09-30 12:56 | DI.RAD_ITS ---
SYMPTOMS/DIAGNOSIS: F/U LEFT TOTAL HIP ARTHROPLASTY LEFT HIP AND PELVIS: The prosthesis in good position, surrounding bone intact with no interval change when compared with the postoperative images of 09/17 and 09/18.
== END 2018-09-30 13:57 ==
PROVIDERS: PCP Internal Medicine; Referring Provider Internal Medicine; Visit Provider Student in an Organized Health Care Education/Training Program
DX: Z96.642 Presence of left artificial hip joint (principal); S72.002A Fracture of unspecified part of neck of left femur, initial encounter for closed fracture; X58.XXXA Exposure to other specified factors, initial encounter
CPT/HCPCS: 73502

== ENCOUNTER 2018-10-28 14:23 | Outpatient (CLI) | payer MEDICARE, MEDICAID, SELFPAY ==
--- NOTE | 2018-10-28 13:46 | DI.RAD_ITS ---
SYMPTOMS/DIAGNOSIS: S/P TOTAL HIP ARTHROPLASTY FOR FX, RECENT FALL LEFT HIP: The patient is status post GRISELDA, the prosthesis in good position, surrounding bone intact with no interval change when compared with the previous study of 09/30/2018.
== END 2018-10-28 14:43 ==
PROVIDERS: PCP Internal Medicine; Referring Provider Internal Medicine; Visit Provider Student in an Organized Health Care Education/Training Program
DX: Z96.642 Presence of left artificial hip joint (principal); Z47.1 Aftercare following joint replacement surgery
CPT/HCPCS: 73502

== ENCOUNTER 2018-11-23 13:03 | Outpatient (REF) | payer MEDICARE, MEDICAID, SELFPAY ==
[2018-11-23 21:13] LABS: HCT 39.3 % (36.0-46.0); HGB 13.8 g/dL (12.0-15.5); Mean Corp. HGB Concentration 35.1 g/dL (32.0-36.0); Mean Corpuscular Hemoglobin 33.9 pg (27.0-33.0); Mean Corpuscular Volume 96.6 fL (80-95); Mean Platelet Volume 9.4 fL (8.0-11.0); Platelet Count 183 x1000/uL (130-400); RBC 4.07 m/cumm (4.00-5.20); RBC Distribution Width 12.4 % (11.7-14.6)
[2018-11-23 21:28] LABS: Anion Gap 13.8 mmol/L (3-11); BUN 7 mg/dL (7-18); CO2 22.2 mmol/L (21.0-32.0); CREATININE 0.64 mg/dL (0.55-1.02); Calcium 9.1 mg/dL (8.5-10.1); Chloride 94 mmol/L (98-107); Glucose 113 mg/dL (70-100); Magnesium 1.7 mg/dL (1.8-2.4); Potassium 3.9 mmol/L (3.5-5.1); Sodium 130 mmol/L (136-145); TSH (W/Ref FT4) 2.01 uIU/mL (0.36-3.74)
== END 2018-11-23 13:23 ==
LOC: NCHCN 13:03
PROVIDERS: PCP Internal Medicine; Visit Provider Internal Medicine
DX: E03.9 Hypothyroidism, unspecified (principal); E55.9 Vitamin D deficiency, unspecified; E87.6 Hypokalemia; D69.6 Thrombocytopenia, unspecified; D75.89 Other specified diseases of blood and blood-forming organs; F34.1 Dysthymic disorder; J44.9 Chronic obstructive pulmonary disease, unspecified; J98.4 Other disorders of lung
CPT/HCPCS: 80048; 82306; 85027; 83735; 84443

== ENCOUNTER → 2018-11-25 13:00 | Outpatient (BNVA) | payer MEDICARE, MEDICAID, SELFPAY | PROVIDERS: PCP Internal Medicine; Referring Provider Internal Medicine; Visit Provider Student in an Organized Health Care Education/Training Program | DX: S72.002A Fracture of unspecified part of neck of left femur, initial encounter for closed fracture; Z96.642 Presence of left artificial hip joint; X58.XXXA Exposure to other specified factors, initial encounter ==

== ENCOUNTER 2019-03-11 16:51 | Emergency (ER) | payer MEDICARE, MEDICAID, SELFPAY ==
[2019-03-11 16:55] VITALS: BP 150/98; PULSE 112; RESP 18; TEMP 36.3; O2SAT 99
--- NOTE | 2019-03-11 17:03 | ED.GENADUL_ITS ---
Discharge Plan Disposition Patient Disposition: HOME Discharge Details Chief Complaint: Orthopedic Clinical Impression: Closed fracture of left proximal humerus Primary Care Provider: Abhijeet Castillo ED Provider: Yuri Escobar Home Meds and New Rx's Prescriptions: New oxycodone 5 mg tablet 5 mg PO Q8H PRN (Reason: pain) Qty: 9 RF: 0 No Action Serevent Diskus 1 EACH blister with device 1 puff BID RF: 0 albuterol sulfate 8.5 GM HFA aerosol inhaler 2 puff PRN PRNRF: 0 Spiriva with HandiHaler 18 MCG capsule, w/inhalation device 1 puff DAILY RF: 0 levothyroxine 25 MCG tablet 25 mcg PO DAILY RF: 0 Dexilant 30 MG capsule,biphase delayed releas 30 mg PO DAILY RF: 0 alendronate 70 mg Tablet 70 mg PO Sa@0700 Qty: 4 RF: 3 docusate sodium [Colace] 100 mg Capsule 100 mg PO BID Qty: 0 RF: 0 calcium citrate [Calcitrate] 200 mg (950 mg) Tablet 950 mg PO BID Qty: 60 RF: 3 cholecalciferol (vitamin D3) 1,000 unit Tablet 1,000 units PO DAILY Qty: 30 RF: 3 acetaminophen 500 mg tablet 1,000 mg PO Q8H PRN (Reason: pain) Qty: 90 RF: 3 aspirin [Aspir-Low] 81 MG tablet,delayed release (DR/EC) 1 tab PO BID Qty: 60 RF: 0 naproxen 500 MG tablet 1 tab PO BID Qty: 60 RF: 3 simvastatin 20 mg Tablet 20 mg PO HS RF: 0 magnesium oxide 400 mg magnesium Tablet 400 mg PO DAILY RF: 0 Discharge Instructions Instructions: Proximal Humerus Fracture (ED) Additional Instructions: Your x-rays today are significant for a fracture involving the upper arm. No other fractures identified on x-ray. Treatment is nonoperative typically, with you requiring to remain in the sling until followed up by orthopedics. I have discussed her case with Dr. Solorzano. His office should be contacting you within the next several days for follow-up. Take Tylenol 1000 mg by mouth every 8 hours for pain. I have also prescribed stronger pain meds to be taken as needed for breakthrough pain. Return to the emergency department should your pain significantly increase or you develop numbness and tingling of the hand Referrals: Jose M Solorzano MD [ [facility] STAFF PHYSICIAN] - 3 days Medical Decision Making This is a nontoxic-appearing 63-year-old female presenting to the emergency department with the above chief complaint. Notable tenderness along the proximal left humerus. Neurovascularly intact. No axial nerve dysfunction noted. She has plain films confirming and an impacted left proximal humerus fracture. Questionable AC joint separation. Discussed case with Dr. Solorzano from orthopedics. He recommends a simple sling and follow-up tomorrow outpatient. Patient given oxycodone 5 mg p.o. Will discharge home with pills for tonight and short prescription. HPI General Date/Time Provider Initiated Documentation: 03/11/19 17:02 . HPI Narrative: Patient is a 63-year-old female who states today she fell status post tripping o dariana her dog striking her left shoulder of the coffee table. She describes severe pain in the anterior lateral aspect of her left shoulder. She suffered the fall roughly 2-1/2 hours prior to arrival. She states that she took 2 beers and 1 cigarette after her fall. She was unable to drive here and had to have her sister pick her up who lives over 1 hour away. She denies any head or neck trauma. No preceding syncope, palpitations or lightheadedness. She denies any chest pain or difficulty breathing. Related Data Home Medications Medication Instructions Recorded Confirmed Serevent Diskus 1 puff BID 10/08/14 11/25/18 Spiriva with HandiHaler 1 puff DAILY 10/08/14 03/11/19 albuterol sulfate 2 puff PRN PRN 10/08/14 03/11/19 levothyroxine 25 mcg PO DAILY 07/21/15 11/25/18 Dexilant 30 mg PO DAILY 10/21/16 11/25/18 acetaminophen 1,000 mg PO Q8H PRN #90 tab 09/18/18 03/11/19 alendronate 70 mg PO Sa@0700 #4 tab 09/18/18 11/25/18 aspirin [Aspir-Low] 1 tab PO BID #60 tab 09/18/18 11/25/18 calcium citrate [Calcitrate] 950 mg PO BID #60 tab 09/18/18 11/25/18 cholecalciferol (vitamin D3) 1,000 units PO DAILY #30 tab 09/18/18 03/11/19 docusate sodium [Colace] 100 mg PO BID #0 cap 09/18/18 11/25/18 naproxen 1 tab PO BID #60 tab 09/18/18 03/11/19 magnesium oxide 400 mg PO DAILY 03/11/19 03/11/19 oxycodone 5 mg PO Q8H PRN #9 tab 03/11/19 simvastatin 20 mg PO HS 03/11/19 03/11/19 Previous Rx's Medication Instructions Recorded acetaminophen 1,000 mg PO Q8H PRN #90 tab 09/18/18 alendronate 70 mg PO Sa@0700 #4 tab 09/18/18 aspirin [Aspir-Low] 1 tab PO BID #60 tab 09/18/18 calcium citrate [Calcitrate] 950 mg PO BID #60 tab 09/18/18 cholecalciferol (vitamin D3) 1,000 units PO DAILY #30 tab 09/18/18 docusate sodium [Colace] 100 mg PO BID #0 cap 09/18/18 naproxen 1 tab PO BID #60 tab 09/18/18 oxycodone 5 mg PO Q8H PRN #9 tab 03/11/19 Allergies Allergy/AdvReac Type Severity Reaction Status Date / Time Penicillins Allergy Verified 03/11/19 17:03 General Stated Complaint: Orthopedic TARA: 3 Review of Systems ENT Ears, Nose, Mouth, and Throat: Denies dizziness and Denies neck pain Cardiovascular Cardiovascular: Denies chest pain, Denies syncope, Denies irregular heart rhythm, Denies lightheadedness, Denies palpitations and Denies dyspnea Respiratory Respiratory: Denies dyspnea Gastrointestinal Gastrointestinal: Denies nausea and Denies vomiting Musculoskeletal Musculoskeletal: Denies back pain, Denies joint swelling, Reports limited range of motion, Denies neck pain, Denies numbness, Denies stiffness and Denies tingling Integumentary/Breasts Skin/Breast: Denies wounds Neurologic Neurologic: Denies dizziness, Denies syncope, Denies numbness and Denies tingling Endocrine Endocrine: Denies palpitations Hematologic/Lymphatic Hematologic/Lymphatic: Denies easy bleeding and Denies easy bruising PFSH Medical History Closed left ankle fracture (Resolved) COPD (chronic obstructive pulmonary disease) (Chronic) De Quervain's disease (radial styloid tenosynovitis) (Resolved) Hypothyroidism (acquired) (Chronic) Osteoarthritis (Chronic) Right lower lobe pulmonary nodule (Chronic) Right wrist fracture (Resolved) TIA (transient ischemic attack) (Resolved) from patient's description of her attack it sounds more consistent w/ PE, ACS or COPD exacerbation (acute dyspnea, left sided chest pain; no associated neurologic deficits; occurred 20 yrs ago, no symptoms since Tobacco abuse (Chronic) Surgical History Colonoscopy - MAC (10/23/16) H/O left wrist surgery (Resolved) Family History Mother No problems noted. Other Colon cancer Social History Smoking/Tobacco Use Status: Current every day Tobacco Type: cigarettes Smoking packs per day: 1 Smoking cigarettes per day: 20.0 Years smoked: 40 Smoking pack- years: 40.00 Alcohol Intake: current Alcohol Intake frequency: 0-2 drinks per day Alcohol type: beer Drug use: Never Substance use type: does not use Do you feel safe at home: Yes Do you feel safe in your relationship?: Yes Exam Const General: cooperative, healthy appearing and no acute distress Orientation: alert, awake and oriented x3 HENMT Head: normal to inspection, no palpable skull fracture, normocephalic and atraumatic Ears: hearing grossly normal bilaterally and external ears normal Face and sinus: normal facial exam and face symmetric Mouth: oral mucosae normal Teeth and gingiva: gingiva normal Throat: posterior oropharynx normal Eyes General: appearance normal, both eyes and all related structures Visual Smalls: normal visual smalls by confrontation Pupils: PERRL EOM: EOM intact bilaterally Neck Neck: normal visual inspection, full ROM and no midline deformity Chest Chest: normal inspection of the chest and normal palpation of entire chest wall Resp Effort & Inspection: normal respiratory effort and able to speak in complete sentences Auscultation: clear to auscultation bilaterally Cardio Rate: regular rate Rhythm: regular rhythm Pulses: radial pulses present and normal peripheral pulses GI Inspection: normal to inspection Palpation: soft Back/Spine/Pelvis Cervical Spine: normal cervical lordosis and cervical ROM normal Thoracic/Lumbar Spine: thoracic and lumbar spine normal to inspection Pelvis: no pain with anterior-posterior compression Skin Trauma: no lacerations or abrasions Neuro Cranial Nerves: CN's II-XI intact bilaterally Speech: speech normal Gait: normal gait Motor: muscle tone normal throughout Sensory Exam: no sensory deficits noted Extrem Left upper extremity: shoulder/upper arm Details: inspection abnormal, tenderness Location: of the A-C joint, of the proximal humerus and of the mid- shaft humerus, axillary nerve sensory function normal and abnormal ROM Details: held in an abnormal fashion Details: in ADduction; no swelling Course Vital Signs Vital signs: Vital Signs Temperature 36.3 C L 03/11/19 16:55 Pulse 112 H 03/11/19 16:55 Respiratory Rate 18 03/11/19 16:55 Blood Pressure 150/98 H 03/11/19 16:55 Pulse Oximetry 99 03/11/19 16:55 Temperature 36.3 C L 03/11/19 16:55 Temperature Source Skin 03/11/19 16:55 Pulse 112 H 03/11/19 16:55 Respiratory Rate 18 03/11/19 16:55 Respiratory Effort 03/11/19 17:01 Blood Pressure 150/98 H 03/11/19 16:55 Blood Pressure Position Sitting 03/11/19 16:55 Pulse Oximetry 99 03/11/19 16:55 Oxygen Delivery Method Room Air 03/11/19 16:55 Oxygen Flow Rate 0 03/11/19 16:55 Pain Level 10 03/11/19 17:02
--- NOTE | 2019-03-11 17:16 | DI.RAD_ITS ---
EXAM: XR SHOULDER LT COMPLETE 2+V INDICATION: anterior lateral shoulder pain s/p fall NV intact. COMPARISON: XR CHEST 2V PA LATERAL from 09/16/2018 TECHNIQUE: 2D digital imaging was performed. FINDINGS: There is a fracture of the proximal left humerus involving the surgical neck with extension into the greater tuberosity. There is mild impaction of the fracture noted. No dislocation of the glenohumer al joint is identified. There is mild superior displacement of the clavicle relative to the acromion and acromioclavicular dislocation cannot be excluded. The soft tissues are unremarkable. [place] left rib fractures are noted. These are present on the prior examination from 09/16/2018. IMPRESSION: 1. Proximal humeral fracture. 2. Question of a type 2 acromioclavicular joint injury.
[2019-03-11] MEDS: Acetaminophen 500 MG TAB 1000 MG PO (17:26)
--- NOTE | 2019-03-11 17:32 | DI.VRAD_ITS ---
PROCEDURE INFORMATION: Exam: XR Left Shoulder Exam date and time: 03/11/2019 5:20 PM Age: 63 years old Clinical history: Injury or trauma; Fall; Work related; Initial encounter; Blunt trauma (contusions or hematomas; Shoulder; Left TECHNIQUE: Imaging protocol: XR Left shoulder. Views: 2 or more views. COMPARISON: No relevant prior studies available. FINDINGS: Bones/joints: Mildly impacted fracture through the left humeral surgical neck extending to the greater tubercle. Joint spaces appear maintained. Mild lifting of the clavicle with respect to the acromion. Multiple age indeterminate left rib deformities. Soft tissues: Normal. IMPRESSION: 1. Mildly impacted fracture through the left humeral surgical neck extending to the greater tubercle. No traumatic joint malalignment. 2. Mild lifting of the clavicle with respect to the acromion may represent type 2 acromioclavicular joint injury. 3. Multiple age indeterminate left rib deformities. Dictated and Authenticated by: Logan Crum MD. Ordering:FE Welch MD
[2019-03-11] MEDS: oxyCODONE 5 MG TAB PO (17:46)
== END 2019-03-11 18:25 | disposition home or self-care (01) ==
PROVIDERS: Emergency Provider Physician Assistant; PCP Internal Medicine
DX: S42.202A Unspecified fracture of upper end of left humerus, initial encounter for closed fracture (principal); W01.190A Fall on same level from slipping, tripping and stumbling with subsequent striking against furniture, initial encounter; J44.9 Chronic obstructive pulmonary disease, unspecified; F17.210 Nicotine dependence, cigarettes, uncomplicated
CPT/HCPCS: 23600; 73030; L3650

== ENCOUNTER 2019-03-22 13:56 | Outpatient (CLI) | payer MEDICARE, MEDICAID, SELFPAY ==
--- NOTE | 2019-03-22 13:56 | DI.RAD_ITS ---
EXAM: XR SHOULDER LT COMPLETE 2+V CLINICAL HISTORY: f/u L prox hum frx TECHNIQUE: COMPARISON: No exams were available for comparison FINDINGS: Two views were obtained and show previous described fracture of the proximal humerus with no gross in terval change in alignment in comparison with previous examination of March 11. IMPRESSION:
== END 2019-03-22 14:16 ==
PROVIDERS: PCP Internal Medicine; Referring Provider Internal Medicine; Visit Provider Student in an Organized Health Care Education/Training Program
DX: S42.202A Unspecified fracture of upper end of left humerus, initial encounter for closed fracture (principal); W01.10XA Fall on same level from slipping, tripping and stumbling with subsequent striking against unspecified object, initial encounter; J44.9 Chronic obstructive pulmonary disease, unspecified; F17.210 Nicotine dependence, cigarettes, uncomplicated
CPT/HCPCS: 99214; 73030

== ENCOUNTER 2019-04-09 08:52 | Outpatient (CLI) | payer MEDICARE, MEDICAID, SELFPAY ==
--- NOTE | 2019-04-09 09:03 | DI.RAD_ITS ---
EXAM: XR SHOULDER LT COMPLETE 2+V CLINICAL HISTORY: F/U FRACTURE TECHNIQUE: COMPARISON: XR SHOULDER LT COMPLETE 2+V from 03/22/2019 FINDINGS: Two views were obtained. Previously described fracture of the proximal humerus again noted with no g ross interval change in alignment of the fracture fragments comparison with previous examination of D . IMPRESSION:
== END 2019-04-09 09:12 ==
PROVIDERS: PCP Internal Medicine; Visit Provider Student in an Organized Health Care Education/Training Program
DX: S42.202D Unspecified fracture of upper end of left humerus, subsequent encounter for fracture with routine healing (principal); X58.XXXD Exposure to other specified factors, subsequent encounter; J44.9 Chronic obstructive pulmonary disease, unspecified; F17.210 Nicotine dependence, cigarettes, uncomplicated
CPT/HCPCS: 99213; 73030

== ENCOUNTER 2019-04-30 11:32 | Outpatient (CLI) | payer MEDICARE, MEDICAID, SELFPAY ==
--- NOTE | 2019-04-30 09:20 | DI.RAD_ITS ---
EXAM: XR SHOULDER LT COMPLETE 2+V CLINICAL HISTORY: F/U TECHNIQUE: COMPARISON: XR SHOULDER LT COMPLETE 2+V from 04/09/2019 FINDINGS: Three views were obtained. Previously described fracture proximal humerus is again noted with no angie ss interval change in alignment of fracture fragments comparison with examination of April 09 ere appears to be increased callus formation at the fracture site. IMPRESSION:
== END 2019-04-30 11:52 ==
PROVIDERS: PCP Internal Medicine; Referring Provider Internal Medicine; Visit Provider Student in an Organized Health Care Education/Training Program
DX: S42.292D Other displaced fracture of upper end of left humerus, subsequent encounter for fracture with routine healing; X58.XXXD Exposure to other specified factors, subsequent encounter
CPT/HCPCS: 99213; 73030

== ENCOUNTER 2019-06-11 09:47 | Outpatient (CLI) | payer MEDICARE, MEDICAID, SELFPAY ==
--- NOTE | 2019-06-11 09:00 | DI.RAD_ITS ---
EXAM: XR SHOULDER LT COMPLETE 2+V CLINICAL HISTORY: F/U FRACTURE. TECHNIQUE: 2D digital imaging was performed. COMPARISON: XR SHOULDER LT COMPLETE 2+V from 04/30/2019 FINDINGS: BONES: Stable alignment of the proximal left humeral fracture. Callus formation has developed about the fracture consistent with some interval healing. No bony destructive lesion is seen. Osteopenia. JOINTS: No dislocation present. SOFT TISSUE: Normal. IMPRESSION: Healing proximal left humeral fracture. DATA REPOSITORY: RADIATION DOSE DELIVERED:
== END 2019-06-11 10:07 ==
PROVIDERS: PCP Internal Medicine; Referring Provider Internal Medicine; Visit Provider Student in an Organized Health Care Education/Training Program
DX: S42.292D Other displaced fracture of upper end of left humerus, subsequent encounter for fracture with routine healing (principal); S42.202D Unspecified fracture of upper end of left humerus, subsequent encounter for fracture with routine healing; X58.XXXD Exposure to other specified factors, subsequent encounter; J44.9 Chronic obstructive pulmonary disease, unspecified; F17.210 Nicotine dependence, cigarettes, uncomplicated
CPT/HCPCS: 99213; 73030

== ENCOUNTER 2019-10-15 13:31 | Outpatient (REF) | payer MEDICARE, SELFPAY ==
[2019-10-15 21:40] LABS: HCT 41.2 % (36.0-46.0); HGB 14.2 g/dL (12.0-15.5); Mean Corp. HGB Concentration 34.5 g/dL (32.0-36.0); Mean Corpuscular Hemoglobin 32.6 pg (27.0-33.0); Mean Corpuscular Volume 94.5 fL (80-95); Mean Platelet Volume 9.5 fL (8.0-11.0); Platelet Count 176 x1000/uL (130-400); RBC 4.36 m/cumm (4.00-5.20); RBC Distribution Width 13.2 % (11.7-14.6)
[2019-10-15 21:59] LABS: ALT 120 U/L (14-59); AST 151 U/L (15-37); Alkaline Phosphatase 140 U/L (46-116); Anion Gap 12.8 mmol/L (3-11); BUN 5 mg/dL (7-18); Bilirubin, Total 0.8 mg/dL (0.2-1.0); CO2 24.2 mmol/L (21.0-32.0); CREATININE 0.62 mg/dL (0.55-1.02); Calcium 9.2 mg/dL (8.5-10.1); Chloride 94 mmol/L (98-107); Glucose 127 mg/dL (74-106); Magnesium 1.5 mg/dL (1.8-2.4); Potassium 4.2 mmol/L (3.5-5.1); Sodium 131 mmol/L (136-145); Total Protein 7.8 g/dL (6.4-8.2)
[2019-10-18 05:54] LABS: Vitamin D 25 Total 30.7 ng/ml (30-100)
== END 2019-10-15 13:51 ==
LOC: NCHCN 13:31
PROVIDERS: PCP Internal Medicine; Visit Provider Internal Medicine
DX: J44.9 Chronic obstructive pulmonary disease, unspecified (principal); E83.42 Hypomagnesemia; E55.9 Vitamin D deficiency, unspecified; K52.9 Noninfective gastroenteritis and colitis, unspecified; J98.4 Other disorders of lung; K70.0 Alcoholic fatty liver; M81.0 Age-related osteoporosis without current pathological fracture
CPT/HCPCS: 80053; 82306; 85027; 83735

== ENCOUNTER 2020-12-20 14:34 | Outpatient (REF) | payer MEDICARE, SELFPAY ==
[2020-12-20 14:16] LABS: HCT 40.6 % (36.0-46.0); MCH 33.7 pg (27.0-33.0); MCHC 34.5 % (32.0-36.0); MCV 97.8 fL (80-95); Platelet Count 220 10^3/uL (130-400); RBC 4.15 10^6/uL (3.93-5.22); RDW 11.9 % (11.7-14.6); RDW-SD 42.9 fL; WBC 6.91 10^3/uL (4.4-10.8)
[2020-12-20 14:33] LABS: ALT 46 U/L (14-59); AST 55 U/L (15-37); Albumin 3.7 g/dL (3.4-5.0); Alkaline Phosphatase 91 U/L (46-116); Anion Gap 10.4 mmol/L (3-11); BUN 6 mg/dL (7-18); Bilirubin, Total 0.4 mg/dL (0.2-1.0); CO2 26.6 mmol/L (21.0-32.0); CREATININE 0.6 mg/dL (0.55-1.02); Calcium 9.1 mg/dL (8.5-10.1); Chloride 97 mmol/L (98-107); Glucose 103 mg/dL (74-106); Magnesium 1.8 mg/dL (1.8-2.4); Potassium 4.5 mmol/L (3.5-5.1); Sodium 134 mmol/L (136-145); Total Protein 7.6 g/dL (6.4-8.2)
== END 2020-12-20 14:35 | disposition home or self-care (01) ==
LOC: NCHCN 14:34
PROVIDERS: PCP Internal Medicine; Visit Provider Family Medicine
DX: E83.42 Hypomagnesemia (principal); F10.99 Alcohol use, unspecified with unspecified alcohol-induced disorder; K70.0 Alcoholic fatty liver; J44.9 Chronic obstructive pulmonary disease, unspecified; D75.89 Other specified diseases of blood and blood-forming organs
CPT/HCPCS: 80053; 85027; 83735

== ENCOUNTER 2021-01-19 01:25 | Outpatient (CLI) | payer MEDICARE, SELFPAY ==
--- NOTE | 2021-01-19 | DI.MAMMO_ITS ---
Exam(s) MAMMO SCREENING EXAM: MAMMO SCREENING CLINICAL HISTORY: SCREENING,Z12.31, HEALTH MAINTENANCE, Z00.00 TECHNIQUE: Bilateral full field digital CC and MLO mammographic images were obtained with 3D tomosyn thesis and utilizing computer aided detection (CAD). COMPARISON: Available for comparison. FINDINGS: Masses/Architectural Distortion: None seen. Microcalcifications: No suspicious pleomorphic-type are seen. Skin Thickening/Nipple Retraction: None. IMPRESSION: 1. No significant interval change with no specific features of malignancy noted. 2. Unless there is more urgent need, screening mammography is recommended, as per [place] [employer] guidelines. BI-RADS Category 1 - Negative Breast Density - Category C - Heterogeneously dense Breast density category C or D implies that the patient has dense breast tissue. Dense breast tissue is very common and is not abnormal but dense breast tissue can make it harder to find cancer on a ma mmogram. Also, dense breast tissue may increase their breast cancer risk. This information about the result of the mammogram report was provided to the patient to raise their awareness. Use this report when you speak with the patient about their risks for breast cancer, which includes their family hist ory. At that time, you may recommend for more screening tests (Ultrasound or MRI) as they might be us eful based on their risk. A negative radiographic report should not delay biopsy if a dominant or clinically suspicious mass is present. Up to ten percent of cancers are not identified on mammography. A negative report may reinforce clinical impression. Adenosis and dense breasts may obscure an underlying neoplasm. False positive reports average 6 to 10%. Patient will receive a letter notifying them of these results.
== END 2021-01-19 01:45 ==
PROVIDERS: PCP Internal Medicine; Visit Provider Family Medicine
DX: Z12.31 Encounter for screening mammogram for malignant neoplasm of breast (principal); R92.8 Other abnormal and inconclusive findings on diagnostic imaging of breast
CPT/HCPCS: 77063; 77067

== ENCOUNTER 2021-10-20 15:20 | Outpatient (REF) | payer MEDICARE, SELFPAY ==
[2021-10-20 17:38] LABS: Abs Immature Grans 0.02 10^3/uL (0.0-0.06); Absolute Basophil Count 0.04 10^3/uL (0.0-0.2); Absolute Eosinophil Count 0.24 10^3/uL (0.0-0.7); Absolute Lymphocyte Count 1.71 10^3/uL (1.2-3.4); Absolute Monocyte Count 0.39 10^3/uL (0.1-0.8); Absolute Neutrophil Count 2.94 10^3/uL (1.2-6.7); Basophils % 0.7; Eosinophils % 4.5; HCT 35.9 % (36.0-46.0); Immature Grans % 0.4; MCH 32.3 pg (27.0-33.0); MCHC 36.2 % (32.0-36.0); MCV 89 fL (80-95); MPV 8.6 fL (8.0-11.0); Monocytes % 7.3; Neutrophils % 55.1; Platelet Count 225 10^3/uL (130-400); RBC 4.03 10^6/uL (3.93-5.22); RDW 12.1 % (11.7-14.6); RDW-SD 39.6 fL; WBC 5.34 10^3/uL (4.4-10.8)
[2021-10-20 17:48] LABS: ALT 39 U/L (14-59); AST 37 U/L (15-37); Albumin 3.7 g/dL (3.4-5.0); Alkaline Phosphatase 83 U/L (46-116); Amylase 211 U/L (25-115); Anion Gap 7.9 mmol/L (3-11); BUN 5 mg/dL (7-18); Bilirubin, Total 0.4 mg/dL (0.2-1.0); CO2 26.1 mmol/L (21.0-32.0); CREATININE 0.6 mg/dL (0.55-1.02); Calcium 8.9 mg/dL (8.5-10.1); Chloride 95 mmol/L (98-107); Glucose 107 mg/dL (74-106); Lipase 1422 U/L (73-393); Potassium 4.4 mmol/L (3.5-5.1); Sodium 129 mmol/L (136-145); Total Protein 7.2 g/dL (6.4-8.2)
== END 2021-10-20 15:21 | disposition home or self-care (01) ==
LOC: LBN 15:20
PROVIDERS: PCP Internal Medicine; Visit Provider Nurse Practitioner Family
DX: R10.13 Epigastric pain (principal)
CPT/HCPCS: 80053; 83690; 82150; 85025

== ENCOUNTER → 2021-10-24 12:20 | Outpatient (CLI) | payer MEDICARE, MEDICAID, SELFPAY ==
--- NOTE | 2021-10-24 14:20 | DI.CT_ITS ---
Exam(s) CT ABDOMEN PELVIS WO EXAM: CT ABDOMEN PELVIS WO CLINICAL HISTORY: ELEVATED LIPASE, EPIGASTRIC PAIN, ? ACUTE PANCREATITIS, R74.8, R10.13. TECHNIQUE: Imaging Protocol: Axial computed tomography images with coronal and sagittal reformatted images were created and reviewed. COMPARISON: CT CHEST WITH CONTRAST from 01/03/2015 FINDINGS: ABDOMEN: Lung Bases: Small fat containing posterior right diaphragmatic hernia. Liver: Normal density. No measurable mass. Gallbladder and biliary tract: Contracted gallbladder. No biliary ductal dilatation. Pancreas: There are pancreatic calcifications present. There is marked atrophy of the body and tail of the pancreas. There are inflammatory changes seen around the pancreatic head. There is also thic kening of the wall of the distal stomach and proximal duodenum. Spleen: Normal. Kidneys: Normal size, contour and axis.No radiodense stones or obstructive uropathy. No masses seen. Adrenal glands: No mass is seen. Lymph nodes: Within normal limits. Abdominal Aorta: Abdominal portion non-dilated. Atherosclerosis is present. PELVIS: Bladder:Symmetric distention, no gross wall thickening. Bowel: No evidence of bowel obstruction. Please see the above section on the pancreas for the duoden al findings. No evidence of appendicitis. Peritoneal cavity: No ascites, collection or mesenteric inflammatory response. No free air. Reproductive organs: Unremarkable as visualized. Bones: Within normal limits. The patient has a left total hip replacement. There is a compression de formity of the T11 vertebral body. It appears old. It was not present on the most recent CT scan fr om 2014. Soft Tissues: Within normal limits. IMPRESSION: 1. Marked thickening of the wall of the distal stomach and duodenum suspicious for an infectious/infl ammatory gastritis/duodenitis. 2. Inflammatory changes around the head of the pancreas suspicious for acute pancreatitis. 3. Calcifications seen in the head of the pancreas consistent with chronic pancreatitis. 4. No abscess. RADIATION DOSE DELIVERED: 537.84mGy.cm Total DLP DATA REPOSITORY: All CT scans at this facility are submitted to the National Radiology Data Registry (NRDR) Dose Index Registry (DIR) with the [employer] (A[employer]). RADIATION OPTIMIZATION: All CT scans at this facility use at least one of these dose optimization te chniques: automated exposure control; mA and/or kV adjustment per patient size (includes targeted exa ms where dose is matched to clinical indication); or iterative reconstruction.
[2021-10-24] MEDS: Barium Sulfate 2% W/V-Berry Smoothie 450 ML BTL 900 ML PO (14:28)
== END ==
PROVIDERS: PCP Internal Medicine; Visit Provider Nurse Practitioner Family
DX: R74.8 Abnormal levels of other serum enzymes (principal); R10.13 Epigastric pain; K31.89 Other diseases of stomach and duodenum; K86.89 Other specified diseases of pancreas
CPT/HCPCS: 74176

== ENCOUNTER → 2021-10-30 02:37 | Outpatient (CLI) | payer MEDICARE, MEDICAID, SELFPAY ==
--- NOTE | 2021-10-30 09:00 | DI.US_ITS ---
Exam(s) US ABDOMEN EXAM: US ABDOMEN CLINICAL HISTORY: EPIGASTRIC PAIN, R10.13, ELEVATED LIPASE, R74.8 TECHNIQUE: Ultrasound abdomen performed using standard protocol. COMPARISON: CT CHEST WITH CONTRAST from 01/03/2015 US ABDOMEN ULTRASOUND (P) from 05/12/[address] ABDOMEN PELVIS WO from 10/24/2021 FINDINGS: ABDOMINAL AORTA AND IVC: Visualized portions normal caliber. PANCREAS: Normal where visualized. There is a calcifications seen in the head of the pancreas measuri ng 9 mm. This corresponds to a calcifications seen on the CT scan from 10/24/2021. LIVER: There is increased echogenicity of the liver consistent with fatty infiltration. Hepatopedal flow in the Portal Vein. GALLBLADDER:No evidence of cholelithiasis. No evidence of wall thickening. No pericholecystic fluid i dentified. BILIARY SYSTEM: Common bile duct measures < 7 mm. No intrahepatic biliary ductal dilation. LOBO'S SIGN: Negative. KIDNEYS: Kidneys are symmetric in size. No evidence of renal calculi. No evidence of hydronephrosis. No renal mass or cyst identified. SPLEEN: Not enlarged. ASCITES: None seen. IMPRESSION: 1. Unremarkable pancreas except for calcification in the head which was present on the CT scan and ca n be seen in cases of chronic pancreatitis. 2. No cholelithiasis or biliary ductal dilatation. 3. Fatty infiltration of the liver. DATA REPOSITORY:
== END ==
PROVIDERS: PCP Internal Medicine; Visit Provider Nurse Practitioner Family
DX: R10.13 Epigastric pain (principal); R74.8 Abnormal levels of other serum enzymes; K76.0 Fatty (change of) liver, not elsewhere classified
CPT/HCPCS: 76700

== ENCOUNTER 2021-11-02 16:55 | Outpatient (REF) | payer MEDICARE, SELFPAY ==
[2021-11-02 15:23] LABS: Abs Immature Grans 0.01 10^3/uL (0.0-0.06); Absolute Basophil Count 0.05 10^3/uL (0.0-0.2); Absolute Eosinophil Count 0.23 10^3/uL (0.0-0.7); Absolute Lymphocyte Count 2.37 10^3/uL (1.2-3.4); Absolute Monocyte Count 0.37 10^3/uL (0.1-0.8); Absolute Neutrophil Count 1.66 10^3/uL (1.2-6.7); Basophils % 1.1; Eosinophils % 4.9; HCT 34.5 % (36.0-46.0); HGB 12.4 g/dL (11.2-15.7); Immature Grans % 0.2; Lymphocytes % 50.5; MCH 31.9 pg (27.0-33.0); MCHC 35.9 % (32.0-36.0); MCV 89 fL (80-95); MPV 8.2 fL (8.0-11.0); Monocytes % 7.9; Neutrophils % 35.4; Platelet Count 304 10^3/uL (130-400); RBC 3.89 10^6/uL (3.93-5.22); RDW 12.7 % (11.7-14.6); RDW-SD 41.2 fL; WBC 4.69 10^3/uL (4.4-10.8)
[2021-11-02 15:38] LABS: ALT 37 U/L (14-59); AST 38 U/L (15-37); Albumin 3.5 g/dL (3.4-5.0); Alkaline Phosphatase 79 U/L (46-116); Anion Gap 8.2 mmol/L (3-11); BUN 4 mg/dL (7-18); Bilirubin, Total 0.3 mg/dL (0.2-1.0); CO2 25.8 mmol/L (21.0-32.0); CREATININE 0.6 mg/dL (0.55-1.02); Calcium 8.8 mg/dL (8.5-10.1); Chloride 96 mmol/L (98-107); ETHANOL BLOOD 29.7 mg/dL (<10); Glucose 89 mg/dL (74-106); Lipase 70 U/L (73-393); Potassium 4.4 mmol/L (3.5-5.1); Sodium 130 mmol/L (136-145); Total Protein 7.5 g/dL (6.4-8.2)
== END 2021-11-02 16:56 | disposition home or self-care (01) ==
LOC: NCHCN 16:55
PROVIDERS: PCP Internal Medicine; Visit Provider Family Medicine
DX: K85.20 Alcohol induced acute pancreatitis without necrosis or infection (principal); K70.0 Alcoholic fatty liver
CPT/HCPCS: 80053; 83690; 80320; 85025

== ENCOUNTER 2021-11-19 22:59 | Emergency (ER) | payer MEDICARE, MEDICAID, SELFPAY ==
[2021-11-19] VITALS (14 sets, daily range): BP systolic 134–163; BP diastolic 82–93; PULSE 90–103; RESP 13–29; TEMP 36.8; O2SAT 98
--- NOTE | 2021-11-19 22:45 | RT.EKG_ITS ---
APPROVED REPORT Exam: Resting ECG Reason for Exam: chest pain Patient Location: E HR:92 bpm ECG Measurements Heart Rate 92 AXIS SD 188 P 77 QRSd 81 QRS 7 QT 361 T 65 QTc 447 Conclusion Sinus rhythm...normal P axis, V-rate 60- 99 Low voltage, extremity and precordial leads...extremity<0.5mV, precordial<1.0mV Physician: Sinus rhythm, rate 92, no significant ST elevations or depressions. No evidence of STEMI. Inverted T wave present in V1.
[2021-11-19 23:10] LABS: Abs Immature Grans 0.02 10^3/uL (0.0-0.06); Absolute Basophil Count 0.04 10^3/uL (0.0-0.2); Absolute Eosinophil Count 0.17 10^3/uL (0.0-0.7); Absolute Lymphocyte Count 2.23 10^3/uL (1.2-3.4); Absolute Monocyte Count 0.55 10^3/uL (0.1-0.8); Absolute Neutrophil Count 4.45 10^3/uL (1.2-6.7); Basophils % 0.5; Eosinophils % 2.3; HCT 34.8 % (36.0-46.0); Immature Grans % 0.3; Lymphocytes % 29.9; MCH 31.7 pg (27.0-33.0); MCHC 34.5 % (32.0-36.0); MCV 92 fL (80-95); MPV 8.3 fL (8.0-11.0); Monocytes % 7.4; Neutrophils % 59.6; Platelet Count 225 10^3/uL (130-400); RBC 3.79 10^6/uL (3.93-5.22); RDW 13.2 % (11.7-14.6); RDW-SD 44.6 fL; WBC 7.46 10^3/uL (4.4-10.8)
--- NOTE | 2021-11-19 23:15 | DI.RAD_ITS ---
Exam(s) XR PORTABLE CHEST AP EXAM: XR PORTABLE CHEST AP CLINICAL HISTORY: left chest pain TECHNIQUE: COMPARISON: CR XR CHEST 2V PA LATERAL from 09/16/[address] ABDOMEN PELVIS WO from 10/24/2021 FINDINGS: Portable AP chest at 0005 hours. The heart is not enlarged. Lungs are generally clear except for a right perihilar nodule probably un changed since August 2018 and a new left-sided calcified nodule consistent with healed granulomatous di sease. No pleural effusion seen.. IMPRESSION: No evidence of acute process. RADIATION DOSE DELIVERED: Total DLP
--- NOTE | 2021-11-19 23:30 | ED.GENADUL_ITS ---
Discharge Plan Disposition Patient Disposition: HOME Condition: Good Discharge Details Chief Complaint: Chest Pain Clinical Impression: Acute pancreatitis Primary Care Provider: Abhijeet Castillo ED Provider: Foreign Wayne Home Meds and New Rx's Prescriptions: No Action Serevent Diskus 1 EACH blister with device 1 puff BID Label Comments: 03/11/19-pt states PCP stopped med several months ago after her hip replacement. albuterol sulfate 8.5 GM HFA aerosol inhaler 2 puff PRN PRN Spiriva with HandiHaler 18 MCG capsule, w/inhalation device 1 puff DAILY levothyroxine 25 MCG tablet 25 mcg PO DAILY Label Comments: 03/11/19-pt states PCP stopped med several months ago after her hip replacement. dexlansoprazole [Dexilant] 30 MG capsule,biphase delayed releas 30 mg PO DAILY Label Comments: 03/11/19-pt states PCP stopped med several months ago after her hip replacement. alendronate 70 mg Tablet 70 mg PO Sa@0700 Qty: 4 3RF Label Comments: 03/11/19-pt states PCP stopped med several months ago after her hip replacement. docusate sodium [Colace] 100 mg Capsule 100 mg PO BID Qty: 0 0RF Label Comments: 03/11/19-pt states PCP stopped med several months ago after her hip replacement. calcium citrate [Calcitrate] 200 mg (950 mg) Tablet 950 mg PO BID Qty: 60 3RF Label Comments: 03/11/19-pt states PCP stopped med several months ago after her hip replacement. cholecalciferol (vitamin D3) 1,000 unit Tablet 1,000 units PO DAILY Qty: 30 3RF acetaminophen 500 mg tablet 1,000 mg PO Q8H PRN (Reason: pain) Qty: 90 3RF aspirin [Aspir-Low] 81 MG tablet,delayed release (DR/EC) 1 tab PO BID Qty: 60 0RF Label Comments: 03/11/19-pt states PCP stopped med several months ago after her hip replacement. naproxen 500 MG tablet 1 tab PO BID Qty: 60 3RF simvastatin 20 mg Tablet 20 mg PO HS magnesium oxide 400 mg magnesium Tablet 400 mg PO DAILY oxycodone 5 mg tablet 5 mg PO Q8H PRN (Reason: pain) Qty: 9 0RF Discharge Instructions Instructions: Pancreatitis (ED) Additional Instructions: At this time you have evidence of mild pancreatitis. Please stick with a liquid diet for the next 2 to 3 days, and then gradually transition to semisolids like Jell-O and pudding and soup, and then slowly advance to a more regular diet. Please avoid any significant fatty or sugary foods. Please take the [place] pills only as needed for pain. If you notice any worsening of your symptoms, or any new symptoms such as vomiting, diarrhea, fever, chills, shortness of breath, chest pain, numbness, weakness, or fainting , please return immediately to the emergency department for reevaluation. Please follow up with your primary care provider as soon as possible for reassessment and reevaluation. As always, it was a pleasure participating in your medical care today. Referrals: Abhijeet Castillo MD [Primary Care Provider] - Medical Decision Making This is a 66-year-old female with a past medical history of pressley creatitis, gastritis, regular alcohol abuse, COPD, and a family history of cardiac disease who presents today for left chest wall pain. She has also had associated nausea and vomiting 2-3 times. Patient states that symptoms began at 6 PM, and been going on for the last 5 hours. EMS was called and came to evaluate. Pain is in the left chest radiates around slightly to the back. She states that this feels similar to her last episode of pancreatitis. She did not receive nitroglycerin or aspirin. She denies any diarrhea. She states that she does drink about 3-4 beers per day, and did so today as well, but she did have some vomiting so she did not keep them down. No other complaints at this time. No tearing or ripping sensation. No pleuritic chest pain. She does note that when she gets up and walks around it does make her pain slightly worse. Exam demonstrates well-appearing female, mild epigastric tenderness particularly in the left upper quadrant. No pitting edema. Differential is concerning for a repeat episode of alcoholic gastritis, potential pancreatitis, also cardiac etiology. We will get a proBNP to evaluate for signs of cardiac strain or heart failure. We will give a GI cocktail, will evaluate for cardiac etiology via labs. Will monitor closely and reassess. 1:18 AM Patient's laboratory work-up is returned, no white count bandemia or left shift. Electrolytes are stable. Lipase is notably elevated at 1100. Patient did have an elevated lipase in the past, but she had a recorded normal value earlier this month. This would reflect an acute case at this time. Bilirubin is normal. Symptoms inconsistent with acute cholecystitis with pancreatitis or choledocholithiasis. Or gallstone pancreatitis. Patient feels well, she is able to tolerate oral fluids and some breann crackers. I do feel that she would be a candidate for outpatient management. Out of an abundance of precaution we will get a repeat troponin however her symptoms clinically appear consistent with pancreatitis. 2:26 AM On reassessment the patient continues to do well. She has had no vomiting or nausea. She still has some mild achiness in her epigastrium. Repeat troponin is negative, symptoms remain inconsistent with ACS. Symptoms are clinically consistent at this time with pancreatitis. Likely compounded by her regular alcohol use. Patient feels comfortable going home and prefers this option. She is currently sitting in bed reading a [employer] magazine in no acute distress whatsoever. No evidence of an acute surgical abdomen on exam. Patient will be discharged home. We will give her a bottle of [place] to go for pain control. Recommend avoidance of alcohol, continue fluid intake, and return if she has any worsening of her symptoms. I have extensively reviewed the treatment plan and discharge instructions with the patient. I have addressed all patient concerns at this time. The patient was made aware of what symptoms to monitor for that would warrant a return to the emergency department. Discussed the plan with the patient, they demonstrate verbal understanding and agreement with our assessment and plan at this time. The documentation in this chart was dictated using [employer] dictation software. Please excuse any dictation errors. EKG 22: 59 Sinus rhythm, rate 92, no significant ST elevations or depressions. No evidence of STEMI. Inverted T wave present in V1. FINDINGS: Lungs: Right lower lobe pulmonary nodule present likely unchanged compared to the prior study of 09/16/2018. Pleural spaces: There is a right pleural effusion present. Heart/Mediastinum: The heart is mildly enlarged. Vasculature: The aorta demonstrates moderate atherosclerotic calcification. Bones/joints: The skeletal structures and soft tissues show no evidence of fracture or other acute processes. Scoliosis of the thoracolumbar spine. Soft tissues: The soft tissues of the extrathoracic region are unremarkable. IMPRESSION: 1. There is a right pleural effusion present. 2. The heart is mildly enlarged. 3. Right lower lobe pulmonary nodule present likely unchanged compared to the prior study of 09/16/2018. Thank you for allowing us to participate in the care of your patient. HPI General Date/Time Provider Initiated Documentation: 11/19/21 22:59 . HPI Narrative: This is a 66-year-old female with a past medical history of pancreatitis, gastritis, regular alcohol abuse, COPD, and a family history of cardiac disease who presents today for left chest wall pain. She has also had associated nausea and vomiting 2-3 times. Patient states that symptoms began at 6 PM, and been going on for the last 5 hours. EMS was called and came to evaluate. Pain is in the left chest radiates around slightly to the back. She states that this feels similar to her last episode of pancreatitis. She did not receive nitroglycerin or aspirin. She denies any diarrhea. She states that she does drink about 3-4 beers per day, and did so today as well, but she did have some vomiting so she did not keep them down. No other complaints at this time. No tearing or ripping sensation. No pleuritic chest pain. She does note that when she gets up and walks around it does make her pain slightly worse. Related Data Home Medications Medication Instructions Recorded Confirmed albuterol sulfate 90 mcg/actuation 2 puff PRN PRN 10/08/14 11/19/21 aerosol inhaler salmeterol 50 mcg/dose blister 1 puff BID 10/08/14 11/19/21 powder for inhalation (Serevent Diskus) tiotropium bromide 18 mcg capsule 1 puff DAILY 10/08/14 11/19/21 with inhalation device (Spiriva with HandiHaler) levothyroxine 25 mcg tablet 25 mcg PO DAILY 07/21/15 11/19/21 dexlansoprazole 30 mg 30 mg PO DAILY 10/21/16 11/19/21 capsule,biphase delayed release (Dexilant) acetaminophen 500 mg tablet 1,000 mg PO Q8H PRN pain #90 tabs 09/18/18 11/19/21 alendronate 70 mg tablet 70 mg PO Sa@0700 #4 tabs 09/18/18 11/19/21 aspirin 81 mg tablet,delayed 1 tab PO BID #60 tabs 09/18/18 11/19/21 release (Aspir-Low) calcium citrate 200 mg (950 mg) 950 mg PO BID #60 tabs 09/18/18 11/19/21 tablet (Calcitrate) cholecalciferol (vitamin D3) 25 1,000 units PO DAILY #30 tabs 09/18/18 11/19/21 mcg (1,000 unit) tablet docusate sodium 100 mg capsule 100 mg PO BID #0 caps 09/18/18 11/19/21 (Colace) naproxen 500 mg tablet 1 tab PO BID #60 tabs 09/18/18 11/19/21 magnesium oxide 400 mg PO DAILY 03/11/19 11/19/21 oxycodone 5 mg tablet 5 mg PO Q8H PRN pain 0 days #9 tabs 03/11/19 11/19/21 simvastatin 20 mg tablet 20 mg PO HS 03/11/19 11/19/21 Previous Rx's Medication Instructions Recorded acetaminophen 500 mg tablet 1,000 mg PO Q8H PRN pain #90 tabs 09/18/18 alendronate 70 mg tablet 70 mg PO Sa@0700 #4 tabs 09/18/18 aspirin 81 mg tablet,delayed 1 tab PO BID #60 tabs 09/18/18 release (Aspir-Low) calcium citrate 200 mg (950 mg) 950 mg PO BID #60 tabs 09/18/18 tablet (Calcitrate) cholecalciferol (vitamin D3) 25 1,000 units PO DAILY #30 tabs 09/18/18 mcg (1,000 unit) tablet docusate sodium 100 mg capsule 100 mg PO BID #0 caps 09/18/18 (Colace) naproxen 500 mg tablet 1 tab PO BID #60 tabs 09/18/18 oxycodone 5 mg tablet 5 mg PO Q8H PRN pain 0 days #9 tabs 03/11/19 Allergies Allergy/AdvReac Type Severity Reaction Status Date / Time Penicillins Allergy Verified 11/19/21 23:01 General Stated Complaint: Chest Pain TARA: 3 Review of Systems All systems reviewed & are unremarkable except as noted in HPI and below PFSH All Active Problems (Updated 11/20/21 @ 02:30 by Foreign Wayne DO) Acute pancreatitis (Acute) Fracture of proximal end of left humerus (Acute 03/11/19) Alcohol abuse (Chronic) Osteoporosis (Chronic) DVT prophylaxis (Acute) Discharge planning issues (Acute) Right lower lobe pulmonary nodule (Chronic) Hypothyroidism (acquired) (Chronic) Tobacco abuse (Chronic) Osteoarthritis (Chronic) COPD (chronic obstructive pulmonary disease) (Chronic) Medical History Closed left ankle fracture De Quervain's disease (radial styloid tenosynovitis) Right wrist fracture TIA (transient ischemic attack) from patient's description of her attack it sounds more consistent w/ PE, ACS or COPD exacerbation (acute dyspnea, left sided chest pain; no associated neurologic deficits; occurred 20 yrs ago, no symptoms since Surgical History Colonoscopy - MAC (10/23/16) H/O left wrist surgery History of total left hip replacement (09/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 Anterior approach by Dr. Escobedo Family History Mother No problems noted. Other Colon cancer Social History Smoking/Tobacco Use Status: Current every day Tobacco Type: cigarettes Smoking packs per day: 1 Smoking cigarettes per day: 20.0 Years smoked: 40 Smoking pack- years: 40.00 Smoking risk assessment performed?: Yes Alcohol Intake: current Alcohol Intake frequency: 0-2 drinks per day Alcohol type: beer Drug use: Never Substance use type: does not use Current gender identity: female Do you feel safe at home: Yes Do you feel safe in your relationship?: Yes Exam Narrative Exam Narrative: 1.Const: Well-nourished, Well-developed, appearing stated age 2.Eyes: PERRL, no conjunctival injection, and symmetrical lids. 3.ENT: Atraumatic external nose and ears. Moist MM. Neck: Symmetric, trachea midline, No thyromegaly. 4.CVS: +S1/S2, No murmurs or gallops. Peripheral pulses 2+ and equal in all extremities. Brisk capillary refill in all extremities. 5.RESP: Unlabored respiratory effort. Clear to auscultation bilaterally. No wheezes rales or rhonchi 6.GI: Soft nondistended, no guarding or rebound. Mild tenderness in the epigastric region. Negative [place] sign, no pain to McBurney's point. 7.MSK: Normocephalic/Atraumatic, Extremities w/o deformity or ttp No cyanosis or clubbing, Normal movement of all extremities 8.Skin: Warm, Dry. No rashes or lesions. 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 Sensation grossly intact, no focal neurologic deficits. 10.Psych: (AAO) x3. Appropriate mood and affect Course Vital Signs Vital signs: Vital Signs Temperature 36.8 C 11/19/21 22:55 Pulse 93 H 11/19/21 22:55 Respiratory Rate 18 11/19/21 22:55 Blood Pressure 163/93 H 11/19/21 22:55 Pulse Oximetry 98 11/19/21 22:55 Temperature 36.8 C 11/19/21 22:55 Temperature Source Skin 11/19/21 22:55 Pulse 93 H 11/19/21 22:55 Respiratory Rate 16 11/19/21 23:04 Respiratory Effort Non-Labored 11/19/21 23:04 Respiratory Depth Normal 11/19/21 23:04 Respiratory Pattern Normal 11/19/21 23:04 Blood Pressure 163/93 H 11/19/21 22:55 Pulse Oximetry 98 11/19/21 22:55 Pain Level 8 11/19/21 22:55 Lab/Test Results Lab/Test Results: Laboratory Tests Range/Units 11/19/21 23:00 WBC (4.4-10.8) 10^3/uL 7.46 RBC (3.93-5.22) 10^6/uL 3.79 L Hgb (11.2-15.7) g/dL 12.0 Hct (36.0-46.0) % 34.8 L MCV (80-95) fL 92 MCH (27.0-33.0) pg 31.7 MCHC (32.0-36.0) % 34.5 RDW (11.7-14.6) % 13.2 Plt Count (130-400) 10^3/uL 225 MPV (8.0-11.0) fL 8.3 Immature Gran % 0.3 Neutrophils % 59.6 Lymphocytes % 29.9 Monocytes % 7.4 Eosinophils % 2.3 Basophils % 0.5 Nucleated RBC % (0.0-0.3) % 0.0 Absolute Neutrophils (1.2-6.7) 10^3/uL 4.45 Absolute Lymphocytes (1.2-3.4) 10^3/uL 2.23 Absolute Monocytes (0.1-0.8) 10^3/uL 0.55 Absolute Eosinophils (0.0-0.7) 10^3/uL 0.17 Absolute Basophils (0.0-0.2) 10^3/uL 0.04 PAWSS Have you Been Recently Intoxicated or Drunk Within the Last 30 days?: Yes Have you Ever Experienced Previous Episodes of Alcohol Withdrawal?: No Have you ever Experienced Withdrawal Seizures?: No Have you ever Experienced Delirium Tremens(DT)s?: No Have you ever undergone Alcohol Rehabilitation Treatment (i.e, inpt ot outpatient treatment programs)?: No Have you ever Experienced Blackouts?: No Have you ever Combined Alcohol with other Downers within the last 90 days?: No Have you ever Combined Alcohol with any other Substance of Abuse during the last 90 days?: No Positive Blood Alcohol level on Presentation? [PCS.BAL]: Yes Evidence of Increased Autonomic Activity (i.e. HR>120, tremor, sweating, agitation, nausea)?: No Result: 2
[2021-11-19 23:31] LABS: ALT 42 U/L (14-59); AST 38 U/L (15-37); Albumin 3.4 g/dL (3.4-5.0); Alkaline Phosphatase 75 U/L (46-116); Anion Gap 10.1 mmol/L (3-11); BUN 5 mg/dL (7-18); Bilirubin, Total 0.2 mg/dL (0.2-1.0); CO2 23.9 mmol/L (21.0-32.0); CREATININE 0.7 mg/dL (0.55-1.02); Calcium 8.5 mg/dL (8.5-10.1); Chloride 97 mmol/L (98-107); Glucose 131 mg/dL (74-106); Lipase 1120 U/L (73-393); NT-proBNP 69 pg/mL (<300); Potassium 3.9 mmol/L (3.5-5.1); Sodium 131 mmol/L (136-145); Total Protein 7.2 g/dL (6.4-8.2)
[2021-11-19 23:34] LABS: Troponin I < 50 ng/L (<or=60)
[2021-11-19 23:43] LABS: PTT Activated 24.8 sec (21.0-27.5); Prothrombin Time 10.4 sec (9.3-11.0)
[2021-11-19] MEDS: Ondansetron 4 MG/2 ML VIAL IVP (23:56)
[2021-11-20] VITALS (8 sets, daily range): BP systolic 135–145; BP diastolic 77–82; PULSE 92–106; RESP 15–18; O2SAT 96
--- NOTE | 2021-11-20 00:24 | DI.VRAD_ITS ---
PROCEDURE INFORMATION: Exam: XR Chest Exam date and time: 11/19/2021 11:47 PM Age: 66 years old Clinical indication: Other: Chest pain TECHNIQUE: Imaging protocol: Radiologic exam of the chest. Views: 1 view. COMPARISON: SC XR CHEST 2V PA LATERAL 09/16/2018 10:00 PM FINDINGS: Lungs: Right lower lobe pulmonary nodule present likely unchanged compared to the prior study of 09/16/2018. Pleural spaces: There is a right pleural effusion present. Heart/Mediastinum: The heart is mildly enlarged. Vasculature: The aorta demonstrates moderate atherosclerotic calcification. Bones/joints: The skeletal structures and soft tissues show no evidence of fracture or other acute processes. Scoliosis of the thoracolumbar spine. Soft tissues: The soft tissues of the extrathoracic region are unremarkable. IMPRESSION: 1. There is a right pleural effusion present. 2. The heart is mildly enlarged. 3. Right lower lobe pulmonary nodule present likely unchanged compared to the prior study of 09/16/2018. Dictated and Authenticated by: Say Hummel MD. Ordering:EVIE Carrasquillo MD
[2021-11-20] MEDS: ACETAMINOPHEN 1,000 MG/100 ML BTL 400 MG IVPB (01:34)
[2021-11-20 02:19] LABS: Troponin I < 50 ng/L (<or=60)
[2021-11-20] MEDS: MORPHine 4 MG/ML SYR IVP (02:41)
== END 2021-11-20 06:01 | disposition home or self-care (01) ==
PROVIDERS: Emergency Provider Student in an Organized Health Care Education/Training Program; PCP Internal Medicine
DX: K85.90 Acute pancreatitis without necrosis or infection, unspecified (principal); J44.9 Chronic obstructive pulmonary disease, unspecified; F17.210 Nicotine dependence, cigarettes, uncomplicated; Z86.73 Personal history of transient ischemic attack (TIA), and cerebral infarction without residual deficits
CPT/HCPCS: 80053; 83690; 93005; 96374; 96375; 99284; 71045; 83880; 84484; 85025; 85610; 85730; 93010; J0131; J2270; J2405

== ENCOUNTER 2022-08-15 13:38 | Outpatient (REF) | payer MEDICARE, SELFPAY ==
[2022-08-15 14:37] LABS: HCT 38.3 % (36.0-46.0); HGB 13.5 g/dL (11.2-15.7); MCH 32.7 pg (27.0-33.0); MCHC 35.2 % (32.0-36.0); MCV 93 fL (80-95); MPV 8.8 fL (8.0-11.0); Platelet Count 213 10^3/uL (130-400); RBC 4.13 10^6/uL (3.93-5.22); RDW 12.4 % (11.7-14.6); RDW-SD 42.5 fL; WBC 7.63 10^3/uL (4.4-10.8)
[2022-08-15 15:00] LABS: ALT 61 U/L (14-59); AST 57 U/L (15-37); Alkaline Phosphatase 81 U/L (46-116); Anion Gap 11.1 mmol/L (3-11); BUN 7 mg/dL (7-18); Bilirubin, Total 0.4 mg/dL (0.2-1.0); CO2 24.9 mmol/L (21.0-32.0); CREATININE 0.6 mg/dL (0.55-1.02); Calcium 9.3 mg/dL (8.5-10.1); Chloride 95 mmol/L (98-107); Estimated GFR 98.93 (mL/min/1.73m2); Glucose 113 mg/dL (74-106); Lipase 44 U/L (16-77); Magnesium 1.6 mg/dL (1.8-2.4); Potassium 3.9 mmol/L (3.5-5.1); Sodium 131 mmol/L (136-145); Total Protein 8.2 g/dL (6.4-8.2)
== END 2022-08-15 13:39 | disposition home or self-care (01) ==
LOC: NCHCN 13:38
PROVIDERS: PCP Internal Medicine; Visit Provider Family Medicine
DX: K85.20 Alcohol induced acute pancreatitis without necrosis or infection (principal); J44.9 Chronic obstructive pulmonary disease, unspecified; J98.4 Other disorders of lung
CPT/HCPCS: 80053; 83690; 85027; 83735

== ENCOUNTER 2022-09-11 02:55 | Outpatient (CLI) | payer MEDICARE, SELFPAY ==
--- NOTE | 2022-09-11 | DI.CTLCSR_ITS ---
Exam(s) CT CHEST LUNG CANCER SCREEN EXAM: CT CHEST LUNG CANCER SCREEN CLINICAL HISTORY: CIGARETTE SMOKER, F17.210, SCREENING FOR LUNG CANCER. TECHNIQUE: Imaging Protocol: Low Dose Technique CONTRAST MATERIAL: None COMPARISON: CT CHEST WITH CONTRAST from 01/03/2015 CR XR CHEST 2V PA LATERAL from 09/16/2018 CR,XR XR PORTABLE CHEST AP from 11/19/2021 FINDINGS: CHEST: LUNGS: There are no new ominous pulmonary nodules. Finding in the left lung on chest x-ray of 022 corresponds to healing callus in fracture in the posterior aspect of the left 9th rib. There are few tiny benign granulomas in the left lung. In the opposite-right lung there is again noted partia lly calcified lower lobe nodule, slightly lobulated and measuring approximately 1.6 by 1.4 cm. This is centrally calcified. No new additional nodules evident. No confluent infiltrates nor pleural eff usions. There are no new significant findings in trachea and mainstem bronchi. MEDIASTINUM: No new hilar nor mediastinal adenopathy. CARDIAC: Heart size is normal. There is no pericardial effusion.Caliber of the thoracic aorta is wit hin normal limits. OTHER: No obvious adrenal masses. OSSEOUS: No significant osseous lesions.No acute fractures. Loss of height of superior endplate of t he T11 vertebral body and Schmorl's node invagination. Approximately 10-15 percent height loss.. IMPRESSION: 1. Stable benign-appearing partially calcified right lung nodule. Tiny calcified granulomas on the l eft side. 2. New possible nodule on the left side seen on chest x-ray of October 2021 is indeed not a lung nodul e but corresponds to callus at a healed fracture site in the posterior aspect of the left 9th rib. 3. Lung RADS Cat 2 - Benign Appearance / Behavior: Nodules with a very low likelihood of becoming a c linically active cancer due to size or lack of growth Lung-RADS 1.0 CATEGORIES: Category 0 - Prior chest CT exam(s) being located for comparison. Category 1 - Annual screening in 12 months. No nodules or definitely benign nodules. Category 2 - Annual screening in 12 months. Benign appearance. Nodules with low likelihood of becomin g active cancer. Category 3 - 6-month follow-up. Probably benign. Short-term follow-up suggested. Nodules with low lik elihood of becoming active cancer. Category 4A - 3-month follow-up and CT/PET if >8 mm in size. Suspicious finding. Findings which requi re additional testing. Category 4B - Findings which require additional testing and tissue sampling. Category 4X - Category 3 or 4 nodules with additional features or imaging findings that increases the suspicion of malignancy. Modifier S- Potentially clinically significant findings (non lung cancer) RADIATION DOSE DELIVERED: 76.09mGy.cm Total DLP DATA REPOSITORY: All CT scans at this facility are submitted to the National Radiology Data Registry (NRDR) Dose Index Registry (DIR) with the [employer] (A[employer]). RADIATION OPTIMIZATION: All CT scans at this facility use at least one of these dose optimization te chniques: automated exposure control; mA and/or kV adjustment per patient size (includes targeted exa ms where dose is matched to clinical indication); or iterative reconstruction.
--- NOTE | 2022-09-11 | DI.MAMMO_ITS ---
Exam(s) MAMMO SCREENING EXAM: MAMMO SCREENING CLINICAL HISTORY: SCREENING, Z12.31, HEALTH MAINTENANCE, Z00.00. TECHNIQUE: Bilateral full field digital CC and MLO mammographic images were obtained with 3D tomosyn thesis and utilizing computer aided detection (CAD). COMPARISON: Prior mammograms were reviewed. FINDINGS: There has been no significant change in the appearance and distribution of the fibroglandular tissue. There are no CAD designations. Asymmetric density seen in the left breast on the MLO view above the midline is unchanged from prior mammograms. No new spiculated masses in either breast and there are no malignant-appearing microcalcification angie ups. There is no significant architectural distortion nor skin thickening-retraction. IMPRESSION: No radiographic evidence of malignancy. BI-RADS Category 1 - Negative Breast Density - Category C - Heterogeneously dense Breast density Category C or D implies that the patient has dense breast tissue. Dense breast tissue can make it harder to find cancer on a mammogram. Dense breast tissue is also associated with an incr eased risk of breast cancer. This information about the result of the mammogram report was provided to the patient to raise their awareness. Use this report when you speak with the patient about their risks for breast cancer, which includes their family history. At that time, you may recommend additional screening tests (Ultrasoun d or MRI) as these tests may add significant information. A negative radiographic report should not delay biopsy if a dominant or clinically suspicious mass is present. Up to ten percent of cancers are not identified on mammography. A negative report may reinforce clinical impression. Adenosis and dense breasts may obscure an underlying neoplasm. False positive reports average 6 to 10%. Patient will receive a letter notifying them of these results.
== END 2022-09-11 03:15 ==
LOC: DI 02:55
PROVIDERS: PCP Internal Medicine; Visit Provider Family Medicine
DX: F17.210 Nicotine dependence, cigarettes, uncomplicated (principal); Z12.31 Encounter for screening mammogram for malignant neoplasm of breast; Z12.2 Encounter for screening for malignant neoplasm of respiratory organs
CPT/HCPCS: 71271; 77063; 77067

== ENCOUNTER 2022-10-15 11:37 | Outpatient (REF) | payer MEDICARE, SELFPAY ==
[2022-10-15 16:10] LABS: Abs Immature Grans 0.02 10^3/uL (0.0-0.06); Absolute Basophil Count 0.04 10^3/uL (0.0-0.2); Absolute Eosinophil Count 0.08 10^3/uL (0.0-0.7); Absolute Lymphocyte Count 1.83 10^3/uL (1.2-3.4); Basophils % 0.5; HCT 37.1 % (36.0-46.0); HGB 13.1 g/dL (11.2-15.7); Immature Grans % 0.3; MCH 32.7 pg (27.0-33.0); MCHC 35.3 % (32.0-36.0); MCV 93 fL (80-95); MPV 8.6 fL (8.0-11.0); Monocytes % 7.5; Neutrophils % 67.7; Platelet Count 236 10^3/uL (130-400); RBC 4.01 10^6/uL (3.93-5.22); RDW 11.7 % (11.7-14.6); WBC 7.97 10^3/uL (4.4-10.8)
[2022-10-15 16:39] LABS: ALT 26 U/L (14-59); AST 24 U/L (15-37); Albumin 3.6 g/dL (3.4-5.0); Alkaline Phosphatase 85 U/L (46-116); Anion Gap 13.8 mmol/L (3-11); BUN 5 mg/dL (7-18); Bilirubin, Total 0.6 mg/dL (0.2-1.0); CO2 23.2 mmol/L (21.0-32.0); CREATININE 0.7 mg/dL (0.55-1.02); Calcium 8.7 mg/dL (8.5-10.1); Chloride 96 mmol/L (98-107); Estimated GFR 95.32 (mL/min/1.73m2); Glucose 127 mg/dL (74-106); Lipase 71 U/L (16-77); Potassium 4.1 mmol/L (3.5-5.1); Sodium 133 mmol/L (136-145); Total Protein 7.3 g/dL (6.4-8.2)
== END 2022-10-15 11:38 | disposition home or self-care (01) ==
LOC: NCHCN 11:37
PROVIDERS: PCP Internal Medicine; Visit Provider Family Medicine
DX: I25.84 Coronary atherosclerosis due to calcified coronary lesion (principal); K70.0 Alcoholic fatty liver; K52.9 Noninfective gastroenteritis and colitis, unspecified
CPT/HCPCS: 80053; 83690; 85025

== ENCOUNTER → 2022-11-21 03:37 | Outpatient (CLI) | payer MEDICARE, SELFPAY ==
--- NOTE | 2022-11-21 | DI.DEXA_ITS ---
Exam(s) XR DEXA BONE DENSITY W/WO ALEX EXAM: XR DEXA BONE DENSITY W/WO ALEX CLINICAL HISTORY: OSTEOPOROSIS, M81.0,HEALTH MAINTENANCE, Z00.00 TECHNIQUE: COMPARISON: DX DEXA BONE DENSITY WITH ALEX from 05/29/2009 FINDINGS: Lateral Spine Image: Unremarkable. No compression deformities identified. Right hip: Total T-Score: -3.0 Total Z-Score: -1.7 T- and Z-scores: Findings are consistent with osteoporosis. Lumbar Spine: Total T-Score: -2.1. This compares to -2.4 on the prior examination. Total Z-Score: -0.1 T- and Z-scores: Findings are consistent with osteopenia. IMPRESSION: Osteoporosis in the right hip.
== END ==
PROVIDERS: PCP Internal Medicine; Visit Provider Family Medicine
DX: Z13.820 Encounter for screening for osteoporosis (principal); M81.0 Age-related osteoporosis without current pathological fracture
CPT/HCPCS: 77080

== ENCOUNTER 2024-09-09 15:27 | Outpatient (REF) | payer MEDICARE, SELFPAY ==
[2024-09-09 20:29] LABS: Abs Immature Grans 0.02 10^3/uL (0.0-0.06); Absolute Basophil Count 0.05 10^3/uL (0.0-0.2); Absolute Eosinophil Count 0.11 10^3/uL (0.0-0.7); Absolute Monocyte Count 0.25 10^3/uL (0.1-0.8); Absolute Neutrophil Count 3.75 10^3/uL (1.2-6.7); Basophils % 0.8 %; Eosinophils % 1.8 %; HGB 11.8 g/dL (11.2-15.7); Immature Grans % 0.3 %; Lymphocytes % 32.4 %; MCHC 34.7 % (32.0-36.0); MCV 89 fL (80-95); MPV 8.3 fL (8.0-11.0); Neutrophils % 60.7 %; Platelet Count 243 10^3/uL (130-400); RBC 3.81 10^6/uL (3.93-5.22); RDW 12.8 % (11.7-14.6); WBC 6.18 10^3/uL (4.4-10.8)
[2024-09-09 20:47] LABS: ALT 36 U/L (14-59); AST 30 U/L (15-37); Albumin 3.7 g/dL (3.4-5.0); Alkaline Phosphatase 105 U/L (46-116); BUN 6 mg/dL (7-18); Bilirubin, Total 0.3 mg/dL (0.2-1.0); CREATININE 0.7 mg/dL (0.55-1.02); Calcium 8.7 mg/dL (8.5-10.1); Chloride 91 mmol/L (98-107); Estimated GFR 94.15 (mL/min/1.73m2); Glucose 106 mg/dL (74-106); Potassium 4.2 mmol/L (3.5-5.1); Sodium 126 mmol/L (136-145); Total Protein 7.4 g/dL (6.4-8.2)
== END 2024-09-09 15:28 | disposition home or self-care (01) ==
LOC: NCHCN 15:27
PROVIDERS: PCP Family Medicine; Visit Provider Family Medicine
DX: J44.9 Chronic obstructive pulmonary disease, unspecified (principal); K70.0 Alcoholic fatty liver
CPT/HCPCS: 80053; 85025

== ENCOUNTER 2024-09-27 14:28 | Outpatient (CLI) | payer MEDICARE, SELFPAY ==
[2024-09-27 15:45] LABS: Anion Gap 9.1 mmol/L (3-11); BUN 6 mg/dL (7-18); CO2 24.9 mmol/L (21.0-32.0); CREATININE 0.6 mg/dL (0.55-1.02); Calcium 8.8 mg/dL (8.5-10.1); Chloride 90 mmol/L (98-107); Estimated GFR 97.71 (mL/min/1.73m2); Glucose 78 mg/dL (74-106); Potassium 4.1 mmol/L (3.5-5.1)
[2024-09-27 15:50] LABS: Sodium 124 mmol/L (136-145)
== END 2024-09-27 14:29 | disposition home or self-care (01) ==
LOC: LBO 14:29
PROVIDERS: PCP Family Medicine; Visit Provider Family Medicine
DX: E87.1 Hypo-osmolality and hyponatremia (principal)
CPT/HCPCS: 36415; 80048

== ENCOUNTER 2024-09-30 16:56 | Outpatient (REF) | payer MEDICARE, SELFPAY ==
[2024-09-30 18:57] LABS: Sodium, Urine 16 mmol/L
== END 2024-09-30 16:57 | disposition home or self-care (01) ==
LOC: NCHCN 16:56
PROVIDERS: PCP Family Medicine; Visit Provider Family Medicine
DX: K70.0 Alcoholic fatty liver (principal); F10.10 Alcohol abuse, uncomplicated; E87.1 Hypo-osmolality and hyponatremia
CPT/HCPCS: 80048; 80320; 84300; 84443

== ENCOUNTER 2024-10-15 00:26 | Outpatient (CLI) | payer MEDICARE, SELFPAY ==
--- NOTE | 2024-10-15 | DI.MAMMO_ITS ---
Exam(s) MAMMO SCREENING EXAM: MAMMO SCREENING CLINICAL HISTORY: screening Z00.00. TECHNIQUE: Bilateral full field digital CC and MLO mammographic images were obtained with 3D tomosynthesis and utilizing computer aided detection (CAD). COMPARISON: Prior mammograms were reviewed. FINDINGS: Fibroglandular tissue pattern is again noted be moderately dense. There are no new significant findings in left breast. In the right breast on the MLO view there is a new superficial nodular density below the level of the nipple. This may be a possible skin mole versus very superficial nodule in the breast. It measures 5 mm by 3 mm. Located 3 cm from the nipple on the MLO view. There are no new spiculated masses nor new malignant appearing microcalcification groups. There is no significant architectural distortion nor skin thickening-retraction. IMPRESSION: 1. No radiographic evidence of malignancy in left breast. 2. New superficially located left breast nodule seen on the MLO view. There is a possibility that this represents a new skin mole. Patient should return for additional images to determine if this is a skin mole or true breast nodule. BI-RADS Category 0 - Incomplete: Need additional imaging evaluation Breast Density - Category C - The breast are heterogeneously dense, which may obscure small masses. Breast density Category C or D implies that the patient has dense breast tissue. Dense breast tissue can make it harder to find cancer on a mammogram. Dense breast tissue is also associated with an increased risk of breast cancer. This information about the result of the mammogram report was provided to the patient to raise their awareness. Use this report when you speak with the patient about their risks for breast cancer, which includes their family history. At that time, you may recommend additional screening tests (Ultrasound or MRI) as these tests may add significant information. A negative radiographic report should not delay biopsy if a dominant or clinically suspicious mass is present. Up to ten percent of cancers are not identified on mammography. A negative report may reinforce clinical impression. Adenosis and dense breasts may obscure an underlying neoplasm. False positive reports average 6 to 10%. Patient will receive a letter notifying them of these results.
--- NOTE | 2024-10-15 | DI.CTLCSR_ITS ---
Exam(s) CT CHEST LUNG CANCER SCREEN EXAM: CT CHEST LUNG CANCER SCREEN CLINICAL HISTORY: Smoker Nicotine dependence F17.210 TECHNIQUE: Imaging Protocol: Axial computed tomography images with coronal and sagittal reformatted images were created and reviewed. Lung Computer Aided Detection (CAD) was utilized. COMPARISON: CT CHEST WITH CONTRAST from 01/03/[address] CHEST LUNG CANCER SCREEN from 09/11/2022 FINDINGS: Tracheobronchial tree: Patent where visualized. No bronchiectasis. Pulmonary parenchyma: Emphysematous changes are present in the lungs. There are few scattered calcified granuloma present. No focal consolidating infiltrates are present. Lung Nodules: There is a stable noncalcified nodule in the right lower lobe (series 4, image 92). There is a stable 1.6 cm lobulated nodule in the right lower lobe with a central calcification. This is been stable dating back to 2014. There are no new pulmonary nodules present. Mediastinum and Abril: No dominant adenopathy or fluid collection. The esophagus is unremarkable. Thyroid gland: Unremarkable. Lymph nodes: Unremarkable. Pleura: No effusion or pneumothorax. Heart: The heart is not dilated. Three vessel coronary artery calcification is present. No pericardial effusion. Aorta: Thoracic aorta non-dilated.Atherosclerotic calcification is present. Upper abdomen: Unremarkable. Soft Tissues: Unremarkable. Bones: Within normal limits. There are old healed rib fractures. There is a right convex thoracic scoliosis. There is stable mild compression of the superior endplate of T11. There is a lucency seen in the posterior aspect of the right 11th rib. There does appear to be some callus formation about the lucency suggesting a subacute fracture. IMPRESSION: 1. No suspicious or new pulmonary nodules. 2. Stable pulmonary nodules. 3. Lucency in the posterior aspect of the right 11th rib. This may represent a subacute fracture as there does appear to be some callus formation about the fracture. Please correlate with patient's clinical history. A small lytic lesion cannot be excluded. Lung RADS Cat 2S - Benign Appearance / Behavior: Nodules with a very low likelihood of becoming a clinically active caner due to size or lack of growth. Other: Clinically Significant or Potentially Clinically Significant Findings (non lung cancer) Lung-RADS 1.0 CATEGORIES: Category 0 - Prior chest CT exam(s) being located for comparison. Category 1 - Annual screening in 12 months. No nodules or definitely benign nodules. Category 2 - Annual screening in 12 months. Benign appearance. Nodules with low likelihood of becoming active cancer. Category 3 - 6-month follow-up. Probably benign. Short-term follow-up suggested. Nodules with low likelihood of becoming active cancer. Category 4A - 3-month follow-up and CT/PET if >8 mm in size. Suspicious finding. Findings which require additional testing. Category 4B - Findings which require additional testing and tissue sampling. Suspicious finding. Category 4X - Category 3 or 4 nodules with additional features or imaging findings that increases the suspicion of malignancy. Modifier S- Potentially clinically significant finding. (Non lung cancer) RADIATION DOSE DELIVERED: 21.18mGy.cm Total DLP 21.18mGy.cmTotal DLP DATA REPOSITORY: All CT scans at this facility are submitted to the National Radiology Data Registry (NRDR) Dose Index Registry (DIR) with the [employer] ([employer]). RADIATION OPTIMIZATION: All CT scans at this facility use at least one of these dose optimization techniques: automated exposure control; mA and/or kV adjustment per patient size (includes targeted exams where dose is matched to clinical indication); or iterative reconstruction.
== END 2024-10-15 00:46 ==
PROVIDERS: PCP Family Medicine; Visit Provider Family Medicine
DX: Z12.31 Encounter for screening mammogram for malignant neoplasm of breast (principal); F17.210 Nicotine dependence, cigarettes, uncomplicated; Z12.2 Encounter for screening for malignant neoplasm of respiratory organs; R92.323 Mammographic fibroglandular density, bilateral breasts
CPT/HCPCS: 71271; 77063; 77067

== ENCOUNTER 2024-10-15 14:37 | Outpatient (CLI) | payer MEDICARE, MEDICAID, SELFPAY ==
[2024-10-15 13:53] LABS: Anion Gap 10.1 mmol/L (3-11); BUN 2 mg/dL (7-18); CO2 24.9 mmol/L (21.0-32.0); Calcium 8.8 mg/dL (8.5-10.1); Chloride 86 mmol/L (98-107); Estimated GFR 102.10 (mL/min/1.73m2); Glucose 121 mg/dL (74-106); Potassium 4.3 mmol/L (3.5-5.1); TSH (W/Ref FT4) 1.91 uIU/mL (0.36-3.74)
[2024-10-15 14:26] LABS: Sodium 121 mmol/L (136-145)
== END 2024-10-15 14:38 | disposition home or self-care (01) ==
PROVIDERS: PCP Family Medicine; Visit Provider Family Medicine
DX: F10.10 Alcohol abuse, uncomplicated (principal); E87.1 Hypo-osmolality and hyponatremia
CPT/HCPCS: 36415; 80048; 80320; 84443

== ENCOUNTER 2024-10-15 19:33 | Emergency (ER) | payer MEDICARE, MEDICAID, SELFPAY ==
--- NOTE | 2024-10-15 19:30 | RT.EKG_ITS ---
APPROVED REPORT Exam: Resting ECG Reason for Exam: Low Sodium Patient Location: E HR:87 bpm ECG Measurements Heart Rate 87 AXIS KS 222 P 83 QRSd 79 QRS 17 QT 364 T 62 QTc 439 Conclusion Sinus rhythm 81 normal axis 1st degree block no stemi
[2024-10-15 20:07] VITALS: BP 157/71; PULSE 102; RESP 18; TEMP 37; O2SAT 99
--- NOTE | 2024-10-15 20:25 | W.ED.GENAD ---
Discharge Plan Disposition Patient Disposition: Home Condition: Stable Discharge Details Clinical Impression: Chronic hyponatremia, Alcohol use Primary Care Provider: Avinash Del Toro ED Provider: Foreign Maldonado Home Meds and New Rx's Prescriptions: Continued Serevent Diskus 1 EACH blister with device 1 puff BID Patient Comments: 03/11/19-pt states PCP stopped med several months ago after her hip replacement. albuterol sulfate 8.5 GM HFA aerosol inhaler 2 puff inhalation PRN PRN tiotropium bromide [Spiriva with HandiHaler] 18 MCG capsule, w/inhalation device 1 puff inhalation DAILY levothyroxine 25 MCG tablet 25 mcg PO DAILY Patient Comments: 03/11/19-pt states PCP stopped med several months ago after her hip replacement. dexlansoprazole [Dexilant] 30 MG capsule,biphase delayed releas 30 mg PO DAILY Patient Comments: 03/11/19-pt states PCP stopped med several months ago after her hip replacement. docusate sodium [Colace] 100 mg Capsule 100 mg PO BID Qty: 0 0RF Patient Comments: 03/11/19-pt states PCP stopped med several months ago after her hip replacement. calcium citrate [Calcitrate] 200 mg (950 mg) Tablet 950 mg PO BID Qty: 60 3RF Patient Comments: 03/11/19-pt states PCP stopped med several months ago after her hip replacement. cholecalciferol (vitamin D3) 1,000 unit Tablet 1,000 units PO DAILY Qty: 30 3RF acetaminophen 500 mg tablet 1,000 mg PO Q8H PRN (Reason: pain) Qty: 90 3RF naproxen 500 MG tablet 1 tab PO BID Qty: 60 3RF simvastatin 20 mg Tablet 20 mg PO HS magnesium oxide 400 mg magnesium Tablet 400 mg PO DAILY oxycodone 5 mg tablet 5 mg PO Q8H PRN (Reason: pain) Qty: 9 0RF Discharge Instructions Instructions: Hyponatremia Additional Instructions: You were seen in the emergency department for your ongoing issues of hyponatremia, your value was 123 at tonight's visit. Basically this is due to chronic alcohol use as it is a diuretic and you are slowly losing more sodium than you are replacing, you need to start drinking drinks with electrolytes, you had also had just below normal magnesium, please take a multivitamin especially 1 containing thiamine as you are likely deficient due to consistent drinking of alcohol. Please return to the emergency department for any confusion, weakness, alteration from baseline or any other emergent concerns. Referrals: Avinash Del Toro MD [Primary Care Provider, Medicine] Discharge Data Discharge Date/Time-TO BE ENTERED AT DEPARTURE: 10/15/24 22:01 HPI General Date/Time Provider Initiated Documentation: 10/15/24 19:46. HPI Narrative: 69 year-old female presents to ED today by VSP sent to her home by PCP for referral to ER when they could not reach her for critical lab values- ongoing chronic hyponatremia going back to August- Na+ 121 by outpatient draw earlier today while she received a CT chest and mammogram, with a chief complaint of no physical complaints- reports feeling at her baseline. Quality described as no physical complaints, no radiation to confusion, weakness, profound lethargy, tremors, vomiting. Severity is described as 0/10. Palliating factors include nothing specific. Provoking factors include nothing specific. Events leading up to the incident/Associated Symptoms: Patient is a daily drinker. Patient not anticoagulated. Related Data Home Medications ?Medication ?Instructions ?Recorded ?Confirmed albuterol sulfate 90 mcg/actuation 2 puff inhalation PRN PRN 10/08/14 10/15/24 aerosol inhaler salmeterol 50 mcg/dose blister 1 puff BID 10/08/14 11/19/21 powder for inhalation (Serevent Diskus) tiotropium bromide 18 mcg capsule 1 puff inhalation DAILY 10/08/14 10/15/24 with inhalation device (Spiriva with HandiHaler) levothyroxine 25 mcg tablet 25 mcg PO DAILY 07/21/15 10/15/24 dexlansoprazole 30 mg 30 mg PO DAILY 10/21/16 10/15/24 capsule,biphase delayed release (Dexilant) acetaminophen 500 mg tablet 1,000 mg (2 x 500 mg) PO Q8H PRN 09/18/18 10/15/24 pain #90 tabs calcium citrate (Calcitrate) 950 mg (4.75 x 200 mg (950 mg)) PO 09/18/18 10/15/24 BID #60 tabs cholecalciferol (vitamin D3) 25 1,000 units PO DAILY #30 tabs 09/18/18 10/15/24 mcg (1,000 unit) tablet docusate sodium 100 mg capsule 100 mg PO BID #0 caps 09/18/18 10/15/24 (Colace) naproxen 500 mg tablet 1 tab PO BID #60 tabs 09/18/18 10/15/24 magnesium oxide 400 mg PO DAILY 03/11/19 10/15/24 oxycodone 5 mg tablet 5 mg PO Q8H PRN pain 0 days #9 tabs 03/11/19 10/15/24 simvastatin 20 mg tablet 20 mg PO HS 03/11/19 10/15/24 Previous Rx's ?Medication ?Instructions ?Recorded acetaminophen 500 mg tablet 1,000 mg (2 x 500 mg) PO Q8H PRN 09/18/18 pain #90 tabs calcium citrate (Calcitrate) 950 mg (4.75 x 200 mg (950 mg)) PO 09/18/18 BID #60 tabs cholecalciferol (vitamin D3) 25 1,000 units PO DAILY #30 tabs 09/18/18 mcg (1,000 unit) tablet docusate sodium 100 mg capsule 100 mg PO BID #0 caps 09/18/18 (Colace) naproxen 500 mg tablet 1 tab PO BID #60 tabs 09/18/18 oxycodone 5 mg tablet 5 mg PO Q8H PRN pain 0 days #9 tabs 03/11/19 Allergies Allergy/AdvReac Type Severity Reaction Status Date / Time Penicillins Allergy Unknown Verified 10/15/24 20:12 General Stated Complaint: Recheck TARA: 2 Review of Systems All systems reviewed & are unremarkable except as noted in HPI and below Exam Narrative Exam Narrative: GENERAL APPEARANCE: Well-nourished, non-toxic, awake and alert, atraumatic, no acute distress. SKIN: Warm, pink, dry, intact, without rashes/lesions/ulcerations. HEAD: Normocephalic, atraumatic, normal hair distribution for gender/age. EYES: Normal conjunctiva, no exudates on lids/lashes, no scleral icterus ENT: Nares patent, no circumoral cyanosis, no facial swelling NECK: Supple, trachea midline, painless cervical ROM. LUNGS/CHEST: Lungs CTA bilaterally, non-labored respirations, normal A/P diameter, symmetrical expansion, no chest wall deformity HEART (CV/PV): Regular rate and rhythm without murmur, no peripheral edema, no JVD. ABDOMEN: Soft, non-distended, no guarding, no tenderness, no large ascites. MSK: Normal ROM, no swelling/deformity to bilateral UEs or LEs, moving all extremities without weakness, no cyanosis, spine midline without tenderness, normal curvature. NEURO: Mental Status AAOx4 - alert to person, place, time, events No facial droop, no forehead involvement. Motor: No focal weakness - strength 5/5 in bilateral UEs and LEs, proximal and distal, symmetric. Sensory: sensation intact to light touch globally. Gait normal: patient ambulated without ataxia into ED room. PSYCH: euthymic, cooperative, pleasant, appropriate speech Course Vital Signs Vital signs: Vital Signs Temperature 37 C 10/15/24 20:07 Pulse 102 H 10/15/24 20:07 Respiratory Rate 18 10/15/24 20:07 Blood Pressure 157/71 H 10/15/24 20:07 Pulse Oximetry 99 10/15/24 20:07 Temperature 37 C 10/15/24 20:07 Temperature Source Temporal Artery Scan 10/15/24 20:07 Pulse 102 H 10/15/24 20:07 Respiratory Rate 18 10/15/24 20:07 Blood Pressure 157/71 H 10/15/24 20:07 Blood Pressure Position Sitting 10/15/24 20:07 Pulse Oximetry 99 10/15/24 20:07 Oxygen Delivery Method Room Air 10/15/24 20:07 Oxygen Flow Rate 0 10/15/24 20:07 Pain Level 0 10/15/24 20:07 Medical Decision Making This dictation utilizes [id number] dictation software and may contain unedited grammatical errors. 69 year-old female presents to ED today by VSP sent to her home by PCP for referral to ER when they could not reach her for critical lab values- ongoing chronic hyponatremia going back to August- Na+ 121 by outpatient draw earlier today while she received a CT chest and mammogram, with a chief complaint of no physical complaints- reports feeling at her baseline. Quality described as no physical complaints, no radiation to confusion, weakness, profound lethargy, tremors, vomiting. Severity is described as 0/10. Palliating factors include nothing specific. Provoking factors include nothing specific. Events leading up to the incident/Associated Symptoms: Patient is a daily drinker. Patients' medical history: History of TIA, alcohol use, COPD. Family and social history: Reports drinking daily 2-3 beers, tobacco use present. Pertinent exam findings / vital signs include no physical complaint, neuro intact, benign cardiopulmonary exam, benign abdomen. Differential / pathologies of concern include chronic alcoholic hyponatremia, SIADH, less likely diabetes insipidus, tumor lysis syndrome, dehydration, malnutrition. Diagnostic studies of: - CBC, CMP, phosphorus, uric acid, magnesium, ammonia, TSH, alcohol level, osmolality send out urine and blood. - CBC shows no acute abnormalities - CMP shows sodium of 123 - Magnesium 1.7 recommend supplements - Phosphorus normal - TSH within normal limits - Ammonia negative - Alcohol level 24.4 - Uric acid level normal - EKG shows sinus rhythm at 87 bpm with P waves following narrow complex QRS with slightly prolonged GA interval, no ischemic changes, normal axis Interventions of: -Consulted with Dr. Pino at 2114, patient likely has alcohol-related chronic hyponatremia with hyponatremia values similar going back to at least 09/27. I counseled the patient that this can be admitted for slow repletion but also if she were comfortable she could try to push drinks with electrolytes like Gatorade and Pedialyte at home, she has remained asymptomatic from any hyponatremia, the patient prefers to be discharged, recommend recheck of sodium next week. ED Course/Assessment/Plan: 69-year-old female presents with ongoing issues of hyponatremia likely in the setting of chronic alcohol use, counseled her that she needs to hydrate herself, Pedialyte and other electrolyte containing beverages encouraged, did recommend she cease alcohol use, she is not obtunded and this has been ongoing for about a month, I did offer her admission and observation for slow rehydration and recheck tomorrow but she would prefer to hydrate herself at home and have her labs rechecked outpatient, she will return immediately for any confusion or profound weakness or palpitations or other emergent concerns. Findings not consistent with central cause of hyponatremia, weakness or obtundation. Disposition of alcohol use, chronic hyponatremia. Patient verbalized understanding of the plan and return to ED criteria and engaged in shared decision making. Medical Records Medical records reviewed: Yes I reviewed the patient's medical records. Lab Data Lab results reviewed: Yes I reviewed the patient's lab results. Labs: Laboratory Tests Range/Units 10/15/24 10/15/24 20:27 20:43 WBC (4.4-10.8) 10^3/uL 4.56 RBC (3.93-5.22) 10^6/uL 3.71 L Hgb (11.2-15.7) g/dL 11.4 Hct (36.0-46.0) % 32.4 L MCV (80-95) fL 87 MCH (27.0-33.0) pg 30.7 MCHC (32.0-36.0) % 35.2 RDW (11.7-14.6) % 12.6 Plt Count (130-400) 10^3/uL 223 MPV (8.0-11.0) fL 8.0 Immature Gran % % 0.0 Neutrophils % % 54.0 Lymphocytes % % 35.0 Atypical Lymphs % % 2 Monocytes % % 5.0 Eosinophils % % 3.0 Basophils % % 1.0 Nucleated RBC % (0.0-0.3) % 0.0 Absolute Neutrophils (1.2-6.7) 10^3/uL 2.46 Absolute Lymphocytes (1.2-3.4) 10^3/uL 1.69 Absolute Monocytes (0.1-0.8) 10^3/uL 0.23 Absolute Eosinophils (0.0-0.7) 10^3/uL 0.14 Absolute Basophils (0.0-0.2) 10^3/uL 0.05 RBC Morphology Normal Sodium (136-145) mmol/L 123 L* Potassium (3.5-5.1) mmol/L 3.7 Chloride (98-107) mmol/L 88 L Carbon Dioxide (21.0-32.0) mmol/L 25.0 Anion Gap (3-11) mmol/L 10.0 BUN (7-18) mg/dL 4 L Creatinine (0.55-1.02) mg/dL 0.5 L Est GFR (CKD-EPI 2020) (mL/min/1.73m2) 102.10 Glucose (74-106) mg/dL 118 H Uric Acid (2.6-6.0) mg/dL 5.2 Calcium (8.5-10.1) mg/dL 8.6 Phosphorus (2.6-4.7) mg/dL 3.5 Magnesium (1.8-2.4) mg/dL 1.7 L Total Bilirubin (0.2-1.0) mg/dL 0.2 AST (15-37) U/L 33 ALT (14-59) U/L 31 Alkaline Phosphatase (46-116) U/L 112 Ammonia (11-32) umol/L 13 Total Protein (6.4-8.2) g/dL 7.5 Albumin (3.4-5.0) g/dL 3.4 TSH (0.36-3.74) uIU/mL 3.16 Ethyl Alcohol (<10) mg/dL 24.4 H PFSH All Active Problems (Updated 10/15/24 @ 21:24 by TRACY Jackson) Alcohol use (Acute) Chronic hyponatremia (Acute) Fracture of proximal end of left humerus (Acute 03/11/19) Alcohol abuse (Chronic) Osteoporosis (Chronic) DVT prophylaxis (Acute) Discharge planning issues (Acute) Right lower lobe pulmonary nodule (Chronic) Hypothyroidism (acquired) (Chronic) Tobacco abuse (Chronic) Osteoarthritis (Chronic) COPD (chronic obstructive pulmonary disease) (Chronic) Medical History Closed left ankle fracture De Quervain's disease (radial styloid tenosynovitis) Right wrist fracture TIA (transient ischemic attack) from patient's description of her attack it sounds more consistent w/ PE, ACS or COPD exacerbation (acute dyspnea, left sided chest pain; no associated neurologic deficits; occurred 20 yrs ago, no symptoms since Surgical History Colonoscopy - MAC (10/23/16) H/O left wrist surgery History of total left hip replacement (09/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 Anterior approach by Dr. Escobedo Family History Mother No problems noted. Other Colon cancer Social History Smoking/Tobacco Use Status: Current every day Tobacco Type: cigarettes Smoking packs per day: 1 Smoking cigarettes per day: 20.0 Years smoked: 40 Smoking pack-years: 40.00 Smoking risk assessment performed?: Yes Alcohol Intake: current Alcohol Intake frequency: 0-2 drinks per day Alcohol type: beer Drug use: Never Substance use type: does not use Housing: apartment Current gender identity: female Do you feel safe at home: Yes Do you feel safe in your relationship?: Yes
[2024-10-15] MEDS: Normal Saline 1,000 ML 80 ML IV (20:32)
[2024-10-15 20:41] LABS: Abs Immature Grans 0.02 10^3/uL (0.0-0.06); HCT 32.4 % (36.0-46.0); HGB 11.4 g/dL (11.2-15.7); MCH 30.7 pg (27.0-33.0); MCHC 35.2 % (32.0-36.0); MCV 87 fL (80-95); MPV 8.0 fL (8.0-11.0); Platelet Count 223 10^3/uL (130-400); RBC 3.71 10^6/uL (3.93-5.22); RDW 12.6 % (11.7-14.6); RDW-SD 40.3 fL; WBC 4.56 10^3/uL (4.4-10.8)
[2024-10-15 20:54] LABS: Immature Grans % 0.0 %
[2024-10-15 20:55] LABS: RBC Morphology Normal
[2024-10-15 21:05] LABS: Ammonia 13 umol/L (11-32)
[2024-10-15 21:06] LABS: ALT 31 U/L (14-59); AST 33 U/L (15-37); Albumin 3.4 g/dL (3.4-5.0); Alkaline Phosphatase 112 U/L (46-116); Anion Gap 10.0 mmol/L (3-11); BUN 4 mg/dL (7-18); Bilirubin, Total 0.2 mg/dL (0.2-1.0); CO2 25.0 mmol/L (21.0-32.0); Calcium 8.6 mg/dL (8.5-10.1); Chloride 88 mmol/L (98-107); Estimated GFR 102.10 (mL/min/1.73m2); Glucose 118 mg/dL (74-106); Magnesium 1.7 mg/dL (1.8-2.4); Potassium 3.7 mmol/L (3.5-5.1); TSH (W/Ref FT4) 3.16 uIU/mL (0.36-3.74); Total Protein 7.5 g/dL (6.4-8.2); Uric Acid 5.2 mg/dL (2.6-6.0)
[2024-10-15 21:07] LABS: Sodium 123 mmol/L (136-145)
== END 2024-10-15 22:01 | disposition home or self-care (01) ==
PROVIDERS: Emergency Provider Physician Assistant; PCP Family Medicine
DX: E87.1 Hypo-osmolality and hyponatremia (principal); F10.10 Alcohol abuse, uncomplicated; I44.0 Atrioventricular block, first degree; E03.9 Hypothyroidism, unspecified; F17.210 Nicotine dependence, cigarettes, uncomplicated; Z86.73 Personal history of transient ischemic attack (TIA), and cerebral infarction without residual deficits; Z12.31 Encounter for screening mammogram for malignant neoplasm of breast; Z12.2 Encounter for screening for malignant neoplasm of respiratory organs; R92.323 Mammographic fibroglandular density, bilateral breasts
CPT/HCPCS: 36415; 71271; 77063; 77067; 80048; 80053; 93005; 99284; 80320; 82140; 83735; 83930; 84100; 84443; 84550; 85025; 93010

== ENCOUNTER 2024-10-21 01:26 | Outpatient (CLI) | payer MEDICARE, MEDICAID, SELFPAY ==
--- NOTE | 2024-10-21 | DI.MAMMO_ITS ---
Exam(s) MAMMO SCREEN CALL BACK UNI EXAM: MAMMO SCREEN CALL BACK UNI CLINICAL HISTORY: F/U MAMMO, R92.8,RT SUPERFICIAL NODULAR DENSITY,? SKIN MOLE VS SUPERFICIAL TECHNIQUE: Spot compression views with tomographic imaging were performed. COMPARISON: 2016 through 15 October 2024 FINDINGS: No suspicious masses or suspicious microcalcifications are seen. MLO view was performed with the mole in tangent with mole marker in place. The oval density question on the recent exam corresponds to the known skin mole. There has been no significant change from prior exams. IMPRESSION: BI-RADS Category 1, Negative Yearly screening mammography is recommended. Breast Density - Category C - The breast are heterogeneously dense, which may obscure small masses. Breast density Category C or D implies that the patient has dense breast tissue. Dense breast tissue can make it harder to find cancer on a mammogram. Dense breast tissue is also associated with an increased risk of breast cancer. This information about the result of the mammogram report was provided to the patient to raise their awareness. Use this report when you speak with the patient about their risks for breast cancer, which includes their family history. At that time, you may recommend additional screening tests (Ultrasound or MRI) as these tests may add significant information. A negative radiographic report should not delay biopsy if a dominant or clinically suspicious mass is present. Up to ten percent of cancers are not identified on mammography. A negative report may reinforce clinical impression. Adenosis and dense breasts may obscure an underlying neoplasm. False positive reports average 6 to 10%. Patient will receive a letter notifying them of these results.
== END 2024-10-21 01:46 ==
LOC: DI 01:26
PROVIDERS: PCP Family Medicine; Visit Provider Family Medicine
DX: Z12.31 Encounter for screening mammogram for malignant neoplasm of breast (principal); R92.8 Other abnormal and inconclusive findings on diagnostic imaging of breast; R92.333 Mammographic heterogeneous density, bilateral breasts
CPT/HCPCS: 77063; 77067